=== PATIENT | male | born 1935 | race Caucasian/White ===

== ENCOUNTER 2016-02-17 12:44 | Inpatient (IN) | payer OTHER, MEDICARE ==
[2016-02-17] MEDS ORDERED: ASPIRIN 81 MG TABLET, CHEWABLE PO ONE (13:18)
[2016-02-17] MEDS ORDERED: ADENOSINE INJ/PF 6 MG/2 ML SDV IV ONE (13:19)
[2016-02-17] MEDS ORDERED: NORMAL SALINE 1000 ML 1,000 ML IV ONE (13:28)
[2016-02-17 14:20] LABS: HEMATOCRIT 36.5 % (37.9-51.0); HEMOGLOBIN 12.4 g/dL (13.5-17.0); HGB HCT DIFFERENCE 0.7; MEAN CORPUSCULAR HEMOGLOBIN 32.1 pg (27.0-33.4); MEAN CORPUSCULAR HGB CONC 33.9 g/dL (32.0-36.0); MEAN CORPUSCULAR VOLUME 95 fl (80-97); RED BLOOD COUNT 3.86 10^6/uL (4.35-5.55); RED CELL DISTRIBUTION WIDTH 14.6 % (11.5-14.0); WHITE BLOOD COUNT 26.1 10^3/uL (4.0-10.5)
[2016-02-17 14:38] LABS: ALANINE AMINOTRANSFERASE 30 U/L (21-72); ALBUMIN 3.6 g/dL (3.5-5.0); ALKALINE PHOSPHATASE 74 U/L (38-126); ANION GAP 13 (5-19); ASPARTATE AMINO TRANSFERASE 17 U/L (17-59); BILIRUBIN,TOTAL 0.6 mg/dL (0.2-1.3); BLOOD UREA NITROGEN 20 mg/dL (7-20); CALCIUM 8.8 mg/dL (8.4-10.2); CARBON DIOXIDE 28 mmol/L (22-30); CHLORIDE 101 mmol/L (98-107); CREATININE RESULT 0.83 mg/dL (0.52-1.25); GLUCOSE 116 mg/dL (75-110); POTASSIUM 4.3 mmol/L (3.6-5.0); SODIUM 141.7 mmol/L (137-145); TOTAL PROTEIN 6.5 g/dL (6.3-8.2)
[2016-02-17 14:39] LABS: BAND NEUTROPHILS % (MANUAL) 4 % (3-5); BASOPHILS % (MANUAL) 0 % (0-2); EOSINOPHILS % (MANUAL) 0 % (0-6); LYMPHOCYTES % (MANUAL) 3 % (13-45); TOTAL CELLS COUNTED 100
[2016-02-17 14:40] LABS: ANISOCYTOSIS SLIGHT
[2016-02-17 14:41] LABS: CREATINE KINASE < 20 U/L (55-170)
[2016-02-17 15:03] LABS: APPEARANCE,URINE CLEAR; BILIRUBIN,URINE NEGATIVE (NEGATIVE); GLUCOSE, URINE NEGATIVE (NEGATIVE); KETONES,URINE NEGATIVE (NEGATIVE); LEUKOCYTE ESTERASE,URINE NEGATIVE (NEGATIVE); NITRITE,URINE NEGATIVE (NEGATIVE); PROTEIN,URINE NEGATIVE (NEGATIVE); UROBILINOGEN,URINE NEGATIVE mg/dL (<2.0)
--- NOTE | 2016-02-17 17:40 | EKG REPORT ---
SEVERITY:- ABNORMAL ECG - JUNCTIONAL TACHYCARDIA INCOMPLETE RBBB AND LAFB : Confirmed by: Lindsay Avila 17-Feb-2016 17:40:32
--- NOTE | 2016-02-17 18:04 | ER Document Report ---
ED Dizziness/Weakness - General Chief Complaint: General Weakness Stated Complaint: POSSIBLE FEVER Notes: Patient is an 80-year-old male who presents with generalized weakness for the past several days. He is also having mild diffuse abdominal pain with mild SOB and a dry cough. On arrival to the emergency room, he started to have palpitations and he was found to be in SVT. He denies chest pain, source of breath, nausea, vomiting, diarrhea, constipation, fevers, headache, numbness, tingling, focal weakness or cough. TRAVEL OUTSIDE OF THE [place] IN LAST 30 DAYS: No - Related Data Allergies/Adverse Reactions: No Known Allergies Allergy (Verified 12/12/15 11:45) Past Medical History - Social History Smoking Status: Former Smoker Frequency of alcohol use: None Drug Abuse: None Family History: CAD, Malignancy, Other - Old age Patient has suicidal ideation: No Patient has homicidal ideation: No - Past Medical History Cardiac Medical History: Reports: Hx Hypertension Pulmonary Medical History: Reports: Hx COPD, Hx Pneumonia Malignancy Medical History: Reports Hx Colorectal Cancer, Reports Hx Prostate Cancer GI Medical History: Reports: Hx Gastroesophageal Reflux Disease Musculoskeltal Medical History: Reports Hx Arthritis Psychiatric Medical History: Denies: Hx Depression Past Surgical History: Reports: Hx Abdominal Surgery, Hx Colostomy, Hx Herniorrhaphy - Immunizations Hx Diphtheria, Pertussis, Tetanus Vaccination: Yes Hx Pneumococcal Vaccination: 11/11/13 Review of Systems - Review of Systems Notes: REVIEW OF SYSTEMS: CONSTITUTIONAL: Denies fever, chills, or sweats. Denies recent illness. EENT: Denies eye, ear, throat, or mouth pain or symptoms. Denies nasal or sinus congestion. CARDIOVASCULAR: Denies chest pain, syncope. RESPIRATORY: +cough, denies cold, or chest congestion. Denies shortness of breath, difficulty breathing, or wheezing. GASTROINTESTINAL: +abdominal pain. Denies nausea, vomiting, or diarrhea. Denies constipation. GENITOURINARY: Denies difficulty urinating, painful urination, burning, frequency, or blood in urine. MUSCULOSKELETAL: Denies neck or back pain or joint pain or swelling. SKIN: Denies rash or skin lesions. HEMATOLOGIC: Denies easy bruising or bleeding. LYMPHATIC: Denies swollen, enlarged glands. NEUROLOGICAL: Denies altered mental status or loss of consciousness. Denies headache. Denies weakness or paralysis or loss of use of either side. Denies problems with gait or speech. Denies sensory or motor loss. PSYCHIATRIC: Denies anxiety or stress or depression. ALL OTHER SYSTEMS REVIEWED AND NEGATIVE. Physical Exam - Vital signs Vitals: Temp Pulse Resp BP Pulse Ox 98.7 F 144 H 22 H 127/77 H 94 02/17/16 12:50 02/17/16 12:50 02/17/16 12:50 02/17/16 12:50 02/17/16 12:50 - Notes Notes: PHYSICAL EXAMINATION: GENERAL: Well-appearing, well-nourished and in no acute distress. HEAD: Atraumatic, normocephalic. EYES: Pupils equal round and reactive to light, extraocular movements intact, sclera anicteric, conjunctiva are normal. ENT: nares patent, oropharynx clear without exudates. Moist mucous membranes. NECK: Normal range of motion, supple without lymphadenopathy LUNGS: Mild crackles on B/L lower lung monique. No wheezes rales or rhonchi. HEART: Regular rhythm. Tachycardia. ABDOMEN: Soft, nontender, normoactive bowel sounds. No guarding, no rebound. No masses appreciated. EXTREMITIES: Normal range of motion, no pitting or edema. No cyanosis. NEUROLOGICAL: Cranial nerves grossly intact. Normal speech, normal gait. Normal sensory, motor, and reflex exams. PSYCH: Normal mood, normal affect. SKIN: Warm, Dry, normal turgor, no rashes or lesions noted. Course - Re-evaluation Re-evalutation: Patient's SVT broke with 6 mg of adenosine. He remained in sinus rhythm while in the emergency room. Patient with bilateral pneumonia on CT A/P, but no intra -abdominal pathology. CT head does not show any evidence of bleeds. Offered patient inpatient versus outpatient treatment of his pneumonia. Family does not feel comfortable taking patient home at this time because he had multiple pneumonias that have resulted in lengthy hospitalizations. Will begin CAP Abx and admit as an inpatient for sepsis (leukocytosis, HR) and pneumonia. Repeat HR is 92, sinus, BP 142/91, RR 21, Pulse Ox 94% on RA. Spoke to Dr. Dixon and he has accepted patient as inpatient to telemetry at 2030. - Vital Signs Vital signs: Temp Pulse Resp BP Pulse Ox 98.7 F 144 H 20 137/57 H 92 02/17/16 12:50 02/17/16 12:50 02/17/16 19:01 02/17/16 19:01 02/17/16 19:01 - Laboratory Result Diagrams: 02/17/16 13:50 02/17/16 13:50 Laboratory results interpreted by me: 02/17/16 02/17/16 02/17/16 13:50 13:50 13:50 WBC 26.1 H RBC 3.86 L Hgb 12.4 L Hct 36.5 L RDW 14.6 H Seg Neuts % (Manual) 87 H Lymphocytes % (Manual) 3 L Monocytes % (Manual) 1 L Abs Neuts (Manual) 23.8 H Glucose 116 H Creatine Kinase < 20 L Urine Blood SMALL H - Diagnostic Test Radiology reviewed: Image reviewed, Reports reviewed Radiology results interpreted by me: Head CT NAD per radiology phone call. CT abdomen and pelvis does not show any intra-abdominal pathology but does show bilateral pulmonary infiltrates. - EKG Interpretation by Me Rate: Tachycardia - SVT Rhythm: SVT Discharge - Discharge Clinical Impression: SVT (supraventricular tachycardia) Pneumonia Qualifiers: Pneumonia type: due to unspecified organism Laterality: bilateral Lung location : lower lobe of lung Qualified Code(s): J18.9 - Pneumonia, unspecified organism Sepsis Qualifiers: Sepsis type: sepsis due to unspecified organism Qualified Code(s): A41.9 - Sepsis, unspecified organism Condition: Stable Disposition: ADMITTED INPATIENT [facility] Admitted: Telemetry Referrals: JENS TAPIA MD [Primary Care Provider] - Follow up as needed
[2016-02-17] MEDS ORDERED: CEFTRIAXONE INJ 1000 MG VIAL IV ONE (18:55)
[2016-02-17] MEDS ORDERED: AZITHROMYCIN INJ 500 MG VIAL IV ONE (18:55)
[2016-02-17] MEDS ORDERED: (PENDING PHARMACY ID) (Nifedipine [Nifedipine Er] 30 MG) PO SCH (20:30)
[2016-02-17] MEDS ORDERED: ACETAMINOPHEN 325 MG TABLET PO PRN (20:31)
[2016-02-17] MEDS ORDERED: LACTULOSE SYRUP 20 GM/30 ML UDCUP PO ONE (21:00)
[2016-02-17] MEDS ORDERED: NIFEDIPINE 30 MG TAB.ER.24 PO ONE (21:00)
[2016-02-17] MEDS ORDERED: KETOROLAC TROMETHAMINE INJ/PF 30 MG/1 ML SDV IV ONE (21:07)
[2016-02-17] MEDS: GUAIFENESIN 600 MG TABLET.SA PO SCH (21:23)
[2016-02-17] MEDS: HEPARIN SOD (PORCINE) 5,000 UNIT/ML 1 ML SYRINGE SUBCUT SCH (21:24)
[2016-02-18] MEDS: IPRATROPIUM/ALBUTEROL 0.5-2.5 MG/3 ML AMPUL NEB SCH ×4 (02:14→20:12)
[2016-02-18 06:36] LABS: ABSOLUTE LYMPHOCYTES (AUTO) 2.2 10^3/uL (0.5-4.7); ABSOLUTE MONOCYTES (AUTO) 0.8 10^3/uL (0.1-1.4); ABSOLUTE NEUT (AUTO) 11.9 10^3/uL (1.7-8.2); BASOPHILS % (AUTO) 0.2 % (0-2); EOSINOPHILS % (AUTO) 0.2 % (0-6); HEMATOCRIT 33.5 % (37.9-51.0); HEMOGLOBIN 11.3 g/dL (13.5-17.0); HGB HCT DIFFERENCE 0.4; LYMPHOCYTES % (AUTO) 14.7 % (13-45); MEAN CORPUSCULAR HEMOGLOBIN 31.5 pg (27.0-33.4); MEAN CORPUSCULAR HGB CONC 33.8 g/dL (32.0-36.0); MEAN CORPUSCULAR VOLUME 93 fl (80-97); MONOCYTES % (AUTO) 5.1 % (3-13); RED BLOOD COUNT 3.59 10^6/uL (4.35-5.55); RED CELL DISTRIBUTION WIDTH 14.6 % (11.5-14.0); SEGMENTED NEUTROPHILS % (AUTO) 79.8 % (42-78); WHITE BLOOD COUNT 14.9 10^3/uL (4.0-10.5)
[2016-02-18 06:52] LABS: ANION GAP 10 (5-19); BLOOD UREA NITROGEN 15 mg/dL (7-20); CARBON DIOXIDE 28 mmol/L (22-30); CHLORIDE 102 mmol/L (98-107); CREATININE RESULT 0.66 mg/dL (0.52-1.25); GLUCOSE 92 mg/dL (75-110); POTASSIUM 3.6 mmol/L (3.6-5.0); SODIUM 140.3 mmol/L (137-145)
[2016-02-18] MEDS: HEPARIN SOD (PORCINE) 5,000 UNIT/ML 1 ML SYRINGE SUBCUT SCH ×3 (06:59→22:09)
[2016-02-18] MEDS: LEVOFLOXACIN 750 MG/D5W RTU 150 ML IV SCH (09:47)
[2016-02-18] MEDS: GUAIFENESIN 600 MG TABLET.SA PO SCH ×2 (09:48→22:09)
[2016-02-18] MEDS: DILTIAZEM HCL 120 MG CAP.SR.24H PO SCH ×2 (09:48→22:09)
[2016-02-18] MEDS ORDERED: NIFEDIPINE 30 MG TAB.ER.24 PO SCH (10:00)
[2016-02-18] MEDS: DOCUSATE SODIUM 100 MG CAPSULE PO SCH ×2 (10:00→17:06)
--- NOTE | 2016-02-18 13:31 | PDOC PROGRESS REPORT ---
Subjective Progress Note for:: 02/18/16 Subjective:: Patient seen on morning rounds. He is resting in bed doing a nebulizer treatment. His daughter is at his bedside. He states he is feeling better. He had bowel movement after enema. His cough is now beginning to loosen. He denies any dyspnea or shortness of breath. He denies any chest pain or palpitations. He denies nausea, vomiting or abdominal pain. He states he is hungry. Physical Exam Vital Signs: Temp Pulse Resp BP Pulse Ox 97.4 F 91 18 125/48 L 96 02/18/16 11:09 02/18/16 11:09 02/18/16 11:09 02/18/16 11:09 02/18/16 11:09 Intake & Output 02/17/16 02/18/16 02/19/16 06:59 06:59 06:59 Intake Total 200 Output Total 400 Balance -200 Weight 61.5 kg General appearance: PRESENT: no acute distress, thin, well-developed, well- nourished Head exam: PRESENT: atraumatic, normocephalic Eye exam: PRESENT: conjunctiva pink, EOMI, PERRLA. ABSENT: scleral icterus Ear exam: PRESENT: normal external ear exam Mouth exam: PRESENT: moist, tongue midline Neck exam: ABSENT: carotid bruit, JVD, lymphadenopathy, thyromegaly Respiratory exam: PRESENT: rhonchi, symmetrical, unlabored - bilaterally. ABSENT: rales, wheezes Cardiovascular exam: PRESENT: RRR. ABSENT: diastolic murmur, rubs, systolic murmur Pulses: PRESENT: normal dorsalis pedis pul Vascular exam: PRESENT: normal capillary refill GI/Abdominal exam: PRESENT: normal bowel sounds, soft. ABSENT: distended, guarding, mass, organolmegaly, rebound, tenderness Rectal exam: PRESENT: deferred Extremities exam: PRESENT: full ROM. ABSENT: calf tenderness, clubbing, pedal edema Neurological exam: PRESENT: alert, awake, oriented to person, oriented to place , oriented to time, oriented to situation, CN II-XII grossly intact. ABSENT: motor sensory deficit Psychiatric exam: PRESENT: appropriate affect, normal mood. ABSENT: homicidal ideation, suicidal ideation Skin exam: PRESENT: dry, intact, warm. ABSENT: cyanosis, rash Results Laboratory Results: 02/18/16 05:32 02/18/16 05:32 02/18/16 02/18/16 05:32 05:32 WBC 14.9 H RBC 3.59 L Hgb 11.3 L Hct 33.5 L MCV 93 MCH 31.5 MCHC 33.8 RDW 14.6 H Plt Count 222 Seg Neutrophils % 79.8 H Lymphocytes % 14.7 Monocytes % 5.1 Eosinophils % 0.2 Basophils % 0.2 Absolute Neutrophils 11.9 H Absolute Lymphocytes 2.2 Absolute Monocytes 0.8 Absolute Eosinophils 0.0 Absolute Basophils 0.0 Sodium 140.3 Potassium 3.6 Chloride 102 Carbon Dioxide 28 Anion Gap 10 BUN 15 Creatinine 0.66 Est GFR ( Amer) > 60 Est GFR (Non-Af Amer) > 60 Glucose 92 Calcium 9.0 Impressions: Abdomen/Pelvis CT 02/17/16 00:00 IMPRESSION: Patchy consolidation is present both lower lobes. NO ACUTE FINDING IN THE ABDOMEN OR PELVIS ON CT SCAN WITH IV CONTRAST. Chest X-Ray 02/17/16 15:22 IMPRESSION: REACTIVE AIRWAY DISEASE VERSUS VIRAL SYNDROME. Peribronchial cuffing and interstitial changes. Subsegmental atelectasis in the right lung base. No dense consolidation. Head CT 02/17/16 18:55 IMPRESSION: CHRONIC CHANGES OF ATROPHY AND MICROVASCULAR ISCHEMIA. NO ACUTE PROCESS. Assessment & Plan - Diagnosis (1) Pneumonia Qualifiers: Pneumonia type: due to unspecified organism Laterality: bilateral Lung location: lower lobe of lung Qualified Code(s): J18.9 - Pneumonia, unspecified organism Is this a current diagnosis for this admission?: YesPlan: Continue broad spectrum antibiotic therapy (2) COPD with acute exacerbation Is this a current diagnosis for this admission?: YesPlan: Continue nebulizer will add steroids (3) Atrial fibrillation with RVR Is this a current diagnosis for this admission?: YesPlan: Continue cardiazem (4) SVT (supraventricular tachycardia) Is this a current diagnosis for this admission?: YesPlan: Continue cardiazem, electrolyte replacement (5) Sepsis Qualifiers: Sepsis type: sepsis due to unspecified organism Qualified Code(s): A41.9 - Sepsis, unspecified organism Is this a current diagnosis for this admission?: YesPlan: Resolved with hydration and broad spectrum antibiotics - Time Time Spent with patient: 25-34 minutes Critical Time spent with patient: 15-24 minutes Medications reviewed and adjusted accordingly: Yes
[2016-02-19] MEDS: IPRATROPIUM/ALBUTEROL 0.5-2.5 MG/3 ML AMPUL NEB SCH ×4 (01:57→20:50)
[2016-02-19] MEDS: HEPARIN SOD (PORCINE) 5,000 UNIT/ML 1 ML SYRINGE SUBCUT SCH ×3 (06:16→21:33)
[2016-02-19 06:38] LABS: ABSOLUTE LYMPHOCYTES (AUTO) 1.5 10^3/uL (0.5-4.7); ABSOLUTE MONOCYTES (AUTO) 0.8 10^3/uL (0.1-1.4); ABSOLUTE NEUT (AUTO) 10.4 10^3/uL (1.7-8.2); BASOPHILS % (AUTO) 0.3 % (0-2); EOSINOPHILS % (AUTO) 0.2 % (0-6); HEMATOCRIT 31.6 % (37.9-51.0); HEMOGLOBIN 10.5 g/dL (13.5-17.0); HGB HCT DIFFERENCE -0.1; MEAN CORPUSCULAR HEMOGLOBIN 31.4 pg (27.0-33.4); MEAN CORPUSCULAR HGB CONC 33.3 g/dL (32.0-36.0); MEAN CORPUSCULAR VOLUME 94 fl (80-97); MONOCYTES % (AUTO) 6.1 % (3-13); RED BLOOD COUNT 3.35 10^6/uL (4.35-5.55); RED CELL DISTRIBUTION WIDTH 14.6 % (11.5-14.0); SEGMENTED NEUTROPHILS % (AUTO) 81.4 % (42-78); WHITE BLOOD COUNT 12.8 10^3/uL (4.0-10.5)
[2016-02-19 06:54] LABS: ANION GAP 13 (5-19); BLOOD UREA NITROGEN 13 mg/dL (7-20); CALCIUM 9.1 mg/dL (8.4-10.2); CARBON DIOXIDE 26 mmol/L (22-30); CHLORIDE 103 mmol/L (98-107); CREATININE RESULT 0.73 mg/dL (0.52-1.25); GLUCOSE 105 mg/dL (75-110); POTASSIUM 3.7 mmol/L (3.6-5.0); SODIUM 141.7 mmol/L (137-145)
--- NOTE | 2016-02-19 09:05 | PDOC PROGRESS REPORT ---
Subjective Progress Note for:: 02/19/16 Subjective:: Patient seen on morning rounds. He is resting in bed eating breakfast. His daughter is at his bedside. He states he is feeling better. He had bowel movement after enema. His cough is now beginning to loosen. He denies any dyspnea or shortness of breath. He denies any chest pain or palpitations. He denies nausea, vomiting or abdominal pain. Staff did notice periods of confusion overnight. His daughter states she has noticed this at home recently and is concerned as he cares for his . Physical Exam Vital Signs: Temp Pulse Resp BP Pulse Ox 97.7 F 75 16 133/48 H 93 02/19/16 03:35 02/19/16 07:55 02/19/16 07:55 02/19/16 03:35 02/19/16 07:55 Intake & Output 02/18/16 02/19/16 02/20/16 06:59 06:59 06:59 Intake Total 200 1500 Output Total 400 200 Balance -200 1300 Weight 61.5 kg 64 kg General appearance: PRESENT: no acute distress, well-developed, well-nourished Head exam: PRESENT: atraumatic, normocephalic Eye exam: PRESENT: conjunctiva pink, EOMI, PERRLA. ABSENT: scleral icterus Ear exam: PRESENT: normal external ear exam Mouth exam: PRESENT: moist, tongue midline Neck exam: ABSENT: carotid bruit, JVD, lymphadenopathy, thyromegaly Respiratory exam: PRESENT: crackles - bibasilar, symmetrical, unlabored. ABSENT : rales, rhonchi, wheezes Cardiovascular exam: PRESENT: RRR. ABSENT: diastolic murmur, rubs, systolic murmur Pulses: PRESENT: normal dorsalis pedis pul Vascular exam: PRESENT: normal capillary refill GI/Abdominal exam: PRESENT: normal bowel sounds, soft. ABSENT: distended, guarding, mass, organolmegaly, rebound, tenderness Rectal exam: PRESENT: deferred Extremities exam: PRESENT: full ROM. ABSENT: calf tenderness, clubbing, pedal edema Neurological exam: PRESENT: alert, awake, oriented to person, oriented to place , oriented to time, CN II-XII grossly intact. ABSENT: motor sensory deficit Psychiatric exam: PRESENT: appropriate affect, normal mood. ABSENT: homicidal ideation, suicidal ideation Skin exam: PRESENT: dry, intact, warm. ABSENT: cyanosis, rash Results Laboratory Results: 02/19/16 05:53 02/19/16 05:53 02/19/16 02/19/16 05:53 05:53 WBC 12.8 H RBC 3.35 L Hgb 10.5 L Hct 31.6 L MCV 94 MCH 31.4 MCHC 33.3 RDW 14.6 H Plt Count 241 Seg Neutrophils % 81.4 H Lymphocytes % 12.0 L Monocytes % 6.1 Eosinophils % 0.2 Basophils % 0.3 Absolute Neutrophils 10.4 H Absolute Lymphocytes 1.5 Absolute Monocytes 0.8 Absolute Eosinophils 0.0 Absolute Basophils 0.0 Sodium 141.7 Potassium 3.7 Chloride 103 Carbon Dioxide 26 Anion Gap 13 BUN 13 Creatinine 0.73 Est GFR ( Amer) > 60 Est GFR (Non-Af Amer) > 60 Glucose 105 Calcium 9.1 Impressions: Abdomen/Pelvis CT 02/17/16 00:00 IMPRESSION: Patchy consolidation is present both lower lobes. NO ACUTE FINDING IN THE ABDOMEN OR PELVIS ON CT SCAN WITH IV CONTRAST. Chest X-Ray 02/17/16 15:22 IMPRESSION: REACTIVE AIRWAY DISEASE VERSUS VIRAL SYNDROME. Peribronchial cuffing and interstitial changes. Subsegmental atelectasis in the right lung base. No dense consolidation. Head CT 02/17/16 18:55 IMPRESSION: CHRONIC CHANGES OF ATROPHY AND MICROVASCULAR ISCHEMIA. NO ACUTE PROCESS. Assessment & Plan - Diagnosis (1) Pneumonia Qualifiers: Pneumonia type: due to unspecified organism Laterality: bilateral Lung location: lower lobe of lung Qualified Code(s): J18.9 - Pneumonia, unspecified organism Is this a current diagnosis for this admission?: YesPlan: Continue broad spectrum antibiotic therapy (2) COPD with acute exacerbation Is this a current diagnosis for this admission?: YesPlan: Continue nebulizer will add steroids (3) Atrial fibrillation with RVR Is this a current diagnosis for this admission?: YesPlan: Continue cardiazem (4) SVT (supraventricular tachycardia) Is this a current diagnosis for this admission?: YesPlan: Continue cardiazem, electrolyte replacement (5) Sepsis Qualifiers: Sepsis type: sepsis due to unspecified organism Qualified Code(s): A41.9 - Sepsis, unspecified organism Is this a current diagnosis for this admission?: YesPlan: Resolved with hydration and broad spectrum antibiotics (6) Confusion Is this a current diagnosis for this admission?: YesPlan: Patient has periods of confusion especially at night. Daughter states this has been a new problem at home (7) Constipation Qualifiers: Constipation type: chronic idiopathic constipation Qualified Code(s) : K59.04 - Chronic idiopathic constipation Is this a current diagnosis for this admission?: YesPlan: Miralax and colace - Time Time Spent with patient: 25-34 minutes Critical Time spent with patient: 15-24 minutes Medications reviewed and adjusted accordingly: Yes Anticipated discharge: Home with Homehealth
[2016-02-19] MEDS: DOCUSATE SODIUM 100 MG CAPSULE PO SCH ×2 (09:14→17:11)
[2016-02-19] MEDS: DILTIAZEM HCL 120 MG CAP.SR.24H PO SCH ×2 (09:14→21:33)
[2016-02-19] MEDS: GUAIFENESIN 600 MG TABLET.SA PO SCH ×2 (09:15→21:34)
[2016-02-19] MEDS: LEVOFLOXACIN 750 MG/D5W RTU 150 ML IV SCH (09:15)
[2016-02-19] MEDS: ACETAMINOPHEN WITH CODEINE #3 TABLET PO PRN ×2 (10:26→16:32)
[2016-02-19] MEDS: POLYETHYLENE GLYCOL 3350 POWDER 17 GM/1 PACKET PO SCH (10:29)
[2016-02-20] MEDS: IPRATROPIUM/ALBUTEROL 0.5-2.5 MG/3 ML AMPUL NEB SCH ×3 (02:51→13:54)
[2016-02-20] MEDS: HEPARIN SOD (PORCINE) 5,000 UNIT/ML 1 ML SYRINGE SUBCUT SCH (06:00)
[2016-02-20 07:06] LABS: ABSOLUTE BASOPHILS # (AUTO) 0.1 10^3/uL (0.0-0.2); ABSOLUTE EOSINOPHILS # (AUTO) 0.1 10^3/uL (0.0-0.6); ABSOLUTE LYMPHOCYTES (AUTO) 1.8 10^3/uL (0.5-4.7); ABSOLUTE MONOCYTES (AUTO) 0.8 10^3/uL (0.1-1.4); ABSOLUTE NEUT (AUTO) 12.1 10^3/uL (1.7-8.2); BASOPHILS % (AUTO) 0.3 % (0-2); EOSINOPHILS % (AUTO) 0.5 % (0-6); HEMATOCRIT 32.9 % (37.9-51.0); HEMOGLOBIN 11.1 g/dL (13.5-17.0); HGB HCT DIFFERENCE 0.4; MEAN CORPUSCULAR HEMOGLOBIN 31.7 pg (27.0-33.4); MEAN CORPUSCULAR HGB CONC 33.8 g/dL (32.0-36.0); MEAN CORPUSCULAR VOLUME 94 fl (80-97); MONOCYTES % (AUTO) 5.3 % (3-13); RED CELL DISTRIBUTION WIDTH 14.7 % (11.5-14.0); SEGMENTED NEUTROPHILS % (AUTO) 81.9 % (42-78); WHITE BLOOD COUNT 14.8 10^3/uL (4.0-10.5)
[2016-02-20 07:30] LABS: ANION GAP 11 (5-19); BLOOD UREA NITROGEN 11 mg/dL (7-20); CALCIUM 8.9 mg/dL (8.4-10.2); CARBON DIOXIDE 27 mmol/L (22-30); CHLORIDE 103 mmol/L (98-107); CREATININE RESULT 0.78 mg/dL (0.52-1.25); GLUCOSE 102 mg/dL (75-110); POTASSIUM 4.1 mmol/L (3.6-5.0); SODIUM 141.1 mmol/L (137-145)
[2016-02-20 09:06] VITALS: BP 136/63
[2016-02-20] MEDS: POLYETHYLENE GLYCOL 3350 POWDER 17 GM/1 PACKET PO SCH (09:08)
[2016-02-20] MEDS: DOCUSATE SODIUM 100 MG CAPSULE PO SCH (09:08)
[2016-02-20] MEDS: LEVOFLOXACIN 750 MG/D5W RTU 150 ML IV SCH (09:08)
[2016-02-20] MEDS: DILTIAZEM HCL 120 MG CAP.SR.24H PO SCH (09:09)
[2016-02-20] MEDS: GUAIFENESIN 600 MG TABLET.SA PO SCH (09:09)
[2016-02-20] MEDS: ACETAMINOPHEN WITH CODEINE #3 TABLET PO PRN (11:46)
--- NOTE | 2016-02-20 15:00 | PDOC DISCHARGE SUMMARY ---
General - Admit/Disc Date/PCP Admission Date/Primary Care Provider: 02/17/16 20:32 JENS TAPIA Discharge Date: 02/20/16 - Discharge Diagnosis (1) Pneumonia Is this a current diagnosis for this admission?: YesSummary: Continue Levaquin for 5 more days (2) COPD with acute exacerbation Is this a current diagnosis for this admission?: YesSummary: Continue inhalers. He does not require oxygen (3) Atrial fibrillation with RVR Is this a current diagnosis for this admission?: YesSummary: Resolved. 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 Back to baseline (7) Constipation Is this a current diagnosis for this admission?: YesSummary: Prn cathartics - Additional Information Resuscitation Status: Full Code Discharge Diet: Cardiac Discharge Activity: Activity As Tolerated, Balance Activity w/Rest Home Medications: Acetaminophen with Codeine [Tylenol with Codeine #3 Tablet] 1 tab PO Q8H PRN 09/24 Docusate Sodium [Colace 100 mg Capsule] 100 mg PO BID #60 capsule 11/28/15 Acetaminophen with Codeine [Tylenol #3 Tablet] 1 tab PO Q6HP PRN 02/18/16 Albuterol Sulfate [Ventolin Hfa] 2 puff PO Q4 PRN 02/18/16 Dextran 70/Hypromellose [Artificial Tears] 1 each OP 02/18/16 Omeprazole 20 mg PO DAILY 02/18/16 Acetaminophen [Tylenol 325 mg Tablet] 650 mg PO Q4HP PRN tablet 02/20/16 Diltiazem HCl [Cardizem Cd 120 mg Capsule] 120 mg PO Q12 #60 cap.sr.24h Guaifenesin [Mucinex Sr 600 mg Tablet.sa] 600 mg PO Q12 tablet.sa 02/20/16 Levofloxacin [Levaquin 500 mg Tablet] 500 mg PO DAILY #5 tablet 02/20/16 Polyethylene Glycol 3350 [Miralax Powder 17 gm/Packet] 17 gm PO DAILY powd.pack 02/20/16 History of Present Illness History of Present Illness: SHANEKA SIERRA is a 80 year old male who presented to the ED with fever, cough , shortness or breath and altered mental status. He was found to have a mild leucocytosis and bibasilar pneumonia on CT scan. He was also complaining of abdominal pain and was found to be constipated. He had period of SVT and afib with RVR that responded to Diltiazem. He was started on broad spectrum antibiotics and referred to the hospitalist service for admission. Hospital Course Hospital Course: Patient was admitted to the telemetry unit by the hospitalist service. He was given an enema to resolve his constipation. IV levaquin and nebulizer treatments were started. He had no further SVT after initiation of cardiazem. He was able to be weaned off oxygen the following day. PT was consulted for evaluation. Patient had periods of confusion especially at night. CT showed atrophy and microvascular changes consistent with aging. Discussed options of home health versus rehab. Family felt that he would do better presently with home health. Physical Exam Vital Signs: Temp Pulse Resp BP Pulse Ox 97.5 F 84 18 136/63 H 91 L 02/20/16 13:36 02/20/16 13:54 02/20/16 13:54 02/20/16 13:36 02/20/16 13:54 Intake & Output 02/19/16 02/20/16 02/21/16 06:59 06:59 06:59 Intake Total 1500 905 Output Total 200 Balance 1300 905 Weight 64 kg 64.6 kg General appearance: PRESENT: no acute distress, thin, well-developed, well- nourished Head exam: PRESENT: atraumatic, normocephalic Eye exam: PRESENT: conjunctiva pink, EOMI, PERRLA. ABSENT: scleral icterus Ear exam: PRESENT: normal external ear exam Mouth exam: PRESENT: moist, tongue midline Neck exam: ABSENT: carotid bruit, JVD, lymphadenopathy, thyromegaly Respiratory exam: PRESENT: clear to auscultation jacky. ABSENT: rales, rhonchi, wheezes Cardiovascular exam: PRESENT: RRR. ABSENT: diastolic murmur, rubs, systolic murmur Pulses: PRESENT: normal carotid pulses Vascular exam: PRESENT: normal capillary refill GI/Abdominal exam: PRESENT: normal bowel sounds, soft. ABSENT: distended, guarding, mass, organolmegaly, rebound, tenderness Rectal exam: PRESENT: deferred Extremities exam: PRESENT: full ROM. ABSENT: calf tenderness, clubbing, pedal edema Musculoskeletal exam: PRESENT: ambulatory Neurological exam: PRESENT: alert, altered, oriented to person, oriented to place, CN II-XII grossly intact, normal gait Psychiatric exam: PRESENT: appropriate affect, normal mood. ABSENT: homicidal ideation, suicidal ideation Skin exam: PRESENT: dry, intact, warm. ABSENT: cyanosis, rash Results Laboratory Results: 02/20/16 06:04 02/20/16 06:04 02/20/16 02/20/16 06:04 06:04 WBC 14.8 H RBC 3.50 L Hgb 11.1 L Hct 32.9 L MCV 94 MCH 31.7 MCHC 33.8 RDW 14.7 H Plt Count 245 Seg Neutrophils % 81.9 H Lymphocytes % 12.0 L Monocytes % 5.3 Eosinophils % 0.5 Basophils % 0.3 Absolute Neutrophils 12.1 H Absolute Lymphocytes 1.8 Absolute Monocytes 0.8 Absolute Eosinophils 0.1 Absolute Basophils 0.1 Sodium 141.1 Potassium 4.1 Chloride 103 Carbon Dioxide 27 Anion Gap 11 BUN 11 Creatinine 0.78 Est GFR ( Amer) > 60 Est GFR (Non-Af Amer) > 60 Glucose 102 Calcium 8.9 Impressions: Abdomen/Pelvis CT 02/17/16 00:00 IMPRESSION: Patchy consolidation is present both lower lobes. NO ACUTE FINDING IN THE ABDOMEN OR PELVIS ON CT SCAN WITH IV CONTRAST. Chest X-Ray 02/17/16 15:22 IMPRESSION: REACTIVE AIRWAY DISEASE VERSUS VIRAL SYNDROME. Peribronchial cuffing and interstitial changes. Subsegmental atelectasis in the right lung base. No dense consolidation. Head CT 02/17/16 18:55 IMPRESSION: CHRONIC CHANGES OF ATROPHY AND MICROVASCULAR ISCHEMIA. NO ACUTE PROCESS. Qualifiers PATEINT BEING DISCHARGED WITH ANY OF THE FOLLOWING DIAGNOSIS?: No Plan Discharge Plan: Home with with home health nursing and aide Time Spent: Less than 30 Minutes
[2016-02-21] MEDS ORDERED: LEVOFLOXACIN 500 MG TABLET PO SCH (10:00)
== END 2016-02-20 14:23 | disposition home health service (06) | DRG 871 ==
LOC: ER 12:44 → EH 20:32 → 5 23:38
PROVIDERS: ADMIT Internal Medicine; ATTEND Internal Medicine
DX: A41.9 Sepsis, unspecified organism (principal); J18.9 Pneumonia, unspecified organism; I47.1 Supraventricular tachycardia; J44.1 Chronic obstructive pulmonary disease with (acute) exacerbation; I10 Essential (primary) hypertension; R53.1 Weakness; K21.9 Gastro-esophageal reflux disease without esophagitis; M19.90 Unspecified osteoarthritis, unspecified site; I48.2 Chronic atrial fibrillation; K59.04 Chronic idiopathic constipation; R41.0 Disorientation, unspecified; Z87.891 Personal history of nicotine dependence; Z85.038 Personal history of other malignant neoplasm of large intestine; Z85.46 Personal history of malignant neoplasm of prostate
CPT/HCPCS: 36415; 51701; 70450; 71020; 74177; 80048; 80053; 81001; 82550; 83605; 83690; 84484; 85025; 87040; 93005; 93010; 94640; 94799; 96361; 96374; 99285; J0153; J0456; J0696; J1644; J1885; J1956; J3490; J7030; J7620

== ENCOUNTER 2017-07-06 11:10 | Emergency (ER) | payer OTHER, MEDICARE ==
[2017-07-06] MEDS ORDERED: ASPIRIN 81 MG TABLET, CHEWABLE PO ONE (11:11)
[2017-07-06 11:34] LABS: ABSOLUTE BASOPHILS # (AUTO) 0.1 10^3/uL (0.0-0.2); ABSOLUTE EOSINOPHILS # (AUTO) 0.2 10^3/uL (0.0-0.6); ABSOLUTE LYMPHOCYTES (AUTO) 1.1 10^3/uL (0.5-4.7); ABSOLUTE MONOCYTES (AUTO) 0.9 10^3/uL (0.1-1.4); ABSOLUTE NEUT (AUTO) 10.8 10^3/uL (1.7-8.2); BASOPHILS % (AUTO) 0.5 % (0-2); EOSINOPHILS % (AUTO) 1.3 % (0-6); HEMATOCRIT 33.7 % (37.9-51.0); HEMOGLOBIN 11.4 g/dL (13.5-17.0); LYMPHOCYTES % (AUTO) 8.2 % (13-45); MEAN CORPUSCULAR HEMOGLOBIN 31.6 pg (27.0-33.4); MEAN CORPUSCULAR HGB CONC 33.8 g/dL (32.0-36.0); MEAN CORPUSCULAR VOLUME 94 fl (80-97); MONOCYTES % (AUTO) 6.8 % (3-13); PLATELET COUNT 304 10^3/uL (150-450); RED CELL DISTRIBUTION WIDTH 15.4 % (11.5-14.0); SEGMENTED NEUTROPHILS % (AUTO) 83.2 % (42-78); TOTAL CELLS COUNTED % (AUTO) 100 %
--- NOTE | 2017-07-06 11:42 | ER Document Report ---
ED Cardiac - General Chief Complaint: Chest Pain Stated Complaint: CHEST PAIN Time Seen by Provider: 07/06/17 11:20 Notes: Chief complaint: Right chest wall pain History of complain:( obtained from-patient) 81 years old male presents today with right chest wall pain for the last 3 days he states that he pulled it while trying to get up. And also when he takes a deep breath or cough the pain comes on to. Denies any precordial pain left arm numbness tingling sensation nausea vomiting. Denies any difficulty in breathing. Denies any other constitutional symptoms. Onset: 3 days ago gradual Severity: Mild to moderate Quality: Sharp Context: While trying to move Exacerbating factor and relieving factors: Change of position or taking a deep breath REVIEW OF SYSTEMS: CONSTITUTIONAL : Denies fever, chills, or sweats. Denies recent illness. EENT: Denies eye, ear, throat, or mouth pain or symptoms. Denies nasal or sinus congestion or discharge. Denies throat, tongue, or mouth swelling or difficulty swallowing. CARDIOVASCULAR: Denies chest pain. Denies palpitations or racing or irregular heart beat. Denies ankle edema. RESPIRATORY: Denies cough, cold, or chest congestion. Denies shortness of breath, difficulty breathing, or wheezing. GASTROINTESTINAL: Denies distention. Denies nausea, vomiting, or diarrhea. Denies blood in vomitus, stools, or per rectum. Denies black, tarry stools. Denies constipation. GENITOURINARY: Denies difficulty urinating, painful urination, burning, frequency, blood in urine, or discharge. FEMALE GENITOURINARY: Denies vaginal bleeding, heavy or abnormal periods, irregular periods. Denies vaginal discharge or odor. MUSCULOSKELETAL: Chest wall pain denies back or neck pain or stiffness. Denies joint pain or swelling. SKIN: Denies rash, lesions or sores. HEMATOLOGIC : Denies easy bruising or bleeding. LYMPHATIC: Denies swollen, enlarged glands. NEUROLOGICAL: Denies confusion or altered mental status. Denies passing out or loss of consciousness. Denies dizziness or lightheadedness. Denies headache. Denies weakness or paralysis or loss of use of either side. Denies problems with gait or speech. Denies sensory loss, numbness, or tingling. Denies seizures. PSYCHIATRIC: Denies anxiety or stress. Denies depression, suicidal ideation, or homicidal ideation. ALL OTHER SYSTEMS REVIEWED AND NEGATIVE. PHYSICAL EXAMINATION: GENERAL: Well-appearing, well-nourished and in no acute distress. HEAD: Atraumatic, normocephalic. EYES: Pupils equal round and reactive to light, extraocular movements intact, conjunctiva are normal. ENT: Nares patent, oropharynx clear without exudates. Moist mucous membranes. NECK: Normal range of motion, supple without lymphadenopathy LUNGS: Breath sounds clear to auscultation bilaterally and equal. No wheezes rales or rhonchi. HEART: Regular rate and rhythm without murmurs Chest wall-right anterior chest wall is tender on palpation. ABDOMEN: Soft, nontender, nondistended abdomen. No guarding, no rebound. No masses appreciated. Examination of genitals-deferred Musculoskeletal: Normal range of motion, no pitting or edema. No cyanosis. NEUROLOGICAL: Cranial nerves grossly intact. Normal speech, normal gait. Normal sensory, motor exams PSYCH: Normal mood, normal affect. SKIN: Warm, Dry, normal turgor, no rashes or lesions noted. Dictation was performed using [employer] voice recognition software right chest wall pain TRAVEL OUTSIDE OF THE [place] IN LAST 30 DAYS: No - Related Data Allergies/Adverse Reactions: No Known Allergies Allergy (Verified 12/12/15 11:45) Past Medical History - Social History Smoking Status: Former Smoker Chew tobacco use (# tins/day): No Frequency of alcohol use: None Drug Abuse: None Family History: CAD, Malignancy, Other - Old age Patient has suicidal ideation: No Patient has homicidal ideation: No - Past Medical History Cardiac Medical History: Reports: Hx Atrial Fibrillation, Hx Hypertension Pulmonary Medical History: Reports: Hx COPD, Hx Pneumonia Renal/ Medical History: Denies: Hx Peritoneal Dialysis Malignancy Medical History: Reports Hx Colorectal Cancer, Reports Hx Prostate Cancer GI Medical History: Reports: Hx Gastroesophageal Reflux Disease Musculoskeltal Medical History: Reports Hx Arthritis Psychiatric Medical History: Denies: Hx Depression Past Surgical History: Reports: Hx Abdominal Surgery, Hx Colostomy, Hx Herniorrhaphy - Immunizations Hx Diphtheria, Pertussis, Tetanus Vaccination: Yes Hx Pneumococcal Vaccination: 11/11/13 Physical Exam - Vital signs Vitals: Temp Pulse Ox 98.2 F 94 07/06/17 11:23 07/06/17 11:23 Course - Re-evaluation Re-evalutation: 07/06/17 13:03 Patient remained stable, no further pain or discomfort. - Vital Signs Vital signs: Temp Pulse Resp BP Pulse Ox 98.2 F 94 07/06/17 11:23 07/06/17 11:23 - Laboratory Result Diagrams: 07/06/17 10:33 07/06/17 10:33 Laboratory results interpreted by me: 07/06/17 07/06/17 10:33 10:33 WBC 13.0 H RBC 3.60 L Hgb 11.4 L Hct 33.7 L RDW 15.4 H Seg Neutrophils % 83.2 H Lymphocytes % 8.2 L Absolute Neutrophils 10.8 H Carbon Dioxide 33 H BUN 25 H Glucose 123 H ALT 18 L Creatine Kinase 33 L - Diagnostic Test Radiology reviewed: Reports reviewed - Chest x-ray reported by radiologist as normal - EKG Interpretation by Me EKG shows normal: Sinus rhythm Rate: Normal Diamond/QRS: Right axis deviation - Sinus rhythm at the rate of 77 bpm normal axis atrial enlargement, RSR pattern in V1, possible right bundle branch block pattern. Compared to the earlier cardiogram which was done in February 2016 new changes noted in V3. Discharge - Discharge Clinical Impression: Acute chest wall pain Condition: Fair Disposition: HOME, SELF-CARE Instructions: Chest Wall Pain ([facility]) Prescriptions: Hydrocodone/Acetaminophen [Vicodin 5-300 mg Tablet] 1 each PO Q6HP PRN #10 tablet PRN Reason:
[2017-07-06 11:52] LABS: ALANINE AMINOTRANSFERASE 18 U/L (21-72); ALBUMIN 3.6 g/dL (3.5-5.0); ALKALINE PHOSPHATASE 92 U/L (38-126); ANION GAP 9 (5-19); ASPARTATE AMINO TRANSFERASE 24 U/L (17-59); BILIRUBIN,DIRECT 0.2 mg/dL (0.0-0.4); BILIRUBIN,TOTAL 0.2 mg/dL (0.2-1.3); BLOOD UREA NITROGEN 25 mg/dL (7-20); CALCIUM 8.7 mg/dL (8.4-10.2); CARBON DIOXIDE 33 mmol/L (22-30); CHLORIDE 100 mmol/L (98-107); CREATINE KINASE 33 U/L (55-170); GLUCOSE 123 mg/dL (75-110); POTASSIUM 3.7 mmol/L (3.6-5.0); SODIUM 142.4 mmol/L (137-145); TOTAL PROTEIN 6.9 g/dL (6.3-8.2)
--- NOTE | 2017-07-06 11:58 | RADIOLOGY REPORT (SQ) ---
EXAM DESCRIPTION: CHEST SINGLE VIEW COMPLETED DATE/TIME: 07/06/2017 11:51 am REASON FOR STUDY: cp COMPARISON: 02/17/2016. EXAM PARAMETERS: NUMBER OF VIEWS: One view. TECHNIQUE: Single frontal radiographic view of the chest acquired. RADIATION DOSE: NA LIMITATIONS: None. FINDINGS: LUNGS AND PLEURA: No opacities, masses or pneumothorax. No pleural effusion. MEDIASTINUM AND HILAR STRUCTURES: No masses. Contour normal. HEART AND VASCULAR STRUCTURES: Heart normal in size. Normal vasculature. BONES: No acute findings. HARDWARE: None in the chest. OTHER: No other significant finding. IMPRESSION: NO ACUTE RADIOGRAPHIC FINDING IN THE CHEST. TECHNICAL DOCUMENTATION: JOB ID: [id number] [email or web address] All Rights Reserved Reading location - IP/workstation name: [email or web address]
[2017-07-06 12:04] LABS: CREATINE KINASE MB 1.2 ng/mL (<4.55); TROPONIN I 0.015 ng/mL
[2017-07-06 13:18] VITALS: BP 179/75
--- NOTE | 2017-07-06 16:36 | EKG REPORT ---
SEVERITY:- ABNORMAL ECG - SINUS RHYTHM PROBABLE LEFT ATRIAL ABNORMALITY RBBB AND LAFB LEFT VENTRICULAR HYPERTROPHY : Confirmed by: Daniel Richter MD 06-Jul-2017 16:35:55
== END 2017-07-06 13:28 | disposition home or self-care (01) ==
LOC: ER 11:10
DX: R07.89 Other chest pain (principal); I10 Essential (primary) hypertension; J44.9 Chronic obstructive pulmonary disease, unspecified; Z87.01 Personal history of pneumonia (recurrent); Z85.048 Personal history of other malignant neoplasm of rectum, rectosigmoid junction, and anus; Z85.46 Personal history of malignant neoplasm of prostate; Z87.891 Personal history of nicotine dependence; Z82.49 Family history of ischemic heart disease and other diseases of the circulatory system
CPT/HCPCS: 36415; 71045; 80053; 82550; 82553; 84484; 85025; 93005; 93010; 99284

== ENCOUNTER 2018-03-12 20:03 | Inpatient (IN) | payer OTHER, MEDICARE, MEDICAID ==
[2018-03-12 20:45] LABS: HEMATOCRIT 33.3 % (37.9-51.0); MEAN CORPUSCULAR HEMOGLOBIN 30.7 pg (27.0-33.4); MEAN CORPUSCULAR VOLUME 93 fl (80-97); PLATELET COUNT 243 10^3/uL (150-450); RED BLOOD COUNT 3.58 10^6/uL (4.35-5.55); RED CELL DISTRIBUTION WIDTH 15.6 % (11.5-14.0); WHITE BLOOD COUNT 15.2 10^3/uL (4.0-10.5)
[2018-03-12 20:46] LABS: VENOUS BLOOD HCO3 38.6 mmol/L (20-32); VENOUS BLOOD PH 7.38 (7.30-7.42)
[2018-03-12] MEDS ORDERED: DILTIAZEM HCL INJ 25 MG/5 ML VIAL IV ONE (20:49)
[2018-03-12 20:50] LABS: INTERNATIONAL RATION (INR) 1.07; PROTHROMBIN TIME 14.4 SEC (11.4-15.4)
[2018-03-12 21:01] LABS: ALANINE AMINOTRANSFERASE 26 U/L (21-72); ALBUMIN 3.6 g/dL (3.5-5.0); ALKALINE PHOSPHATASE 100 U/L (38-126); ANION GAP 11 (5-19); ASPARTATE AMINO TRANSFERASE 20 U/L (17-59); BILIRUBIN,DIRECT 0.3 mg/dL (0.0-0.4); BILIRUBIN,TOTAL 0.6 mg/dL (0.2-1.3); BLOOD UREA NITROGEN 21 mg/dL (7-20); CALCIUM 8.1 mg/dL (8.4-10.2); CARBON DIOXIDE 35 mmol/L (22-30); CHLORIDE 95 mmol/L (98-107); CREATINE KINASE 22 U/L (55-170); GLUCOSE 161 mg/dL (75-110); POTASSIUM 3.3 mmol/L (3.6-5.0); SODIUM 140.5 mmol/L (137-145); TOTAL PROTEIN 6.3 g/dL (6.3-8.2)
[2018-03-12 21:05] LABS: ABSOLUTE LYMPHOCYTES# (MANUAL) 0.8 10^3/uL (0.5-4.7); ABSOLUTE MONOCYTES # (MANUAL) 0.3 10^3/uL (0.1-1.4); ABSOLUTE NEUTROPHILS# (MANUAL) 14.1 10^3/uL (1.7-8.2); BASOPHILS % (MANUAL) 0 % (0-2); EOSINOPHILS % (MANUAL) 0 % (0-6); LYMPHOCYTES % (MANUAL) 5 % (13-45); MONOCYTES % (MANUAL) 2 % (3-13); SEGMENTED NEUTROPHILS % (MAN) 93 % (42-78); TOTAL CELLS COUNTED 100
[2018-03-12 21:07] LABS: ANISOCYTOSIS SLIGHT; PLATELET COMMENT ADEQUATE; PLATELET LARGE PRESENT; POIKILOCYTOSIS SLIGHT; POLYCHROMASIA SLIGHT; TARGET CELLS SLIGHT
[2018-03-12] MEDS: DILTIAZEM HCL/D5W 125 MG/125 ML RTUINJ IV PRN (21:11)
[2018-03-12 21:12] LABS: CREATINE KINASE MB 1.03 ng/mL (<4.55); TROPONIN I 0.018 ng/mL
--- NOTE | 2018-03-12 21:22 | RADIOLOGY REPORT (SQ) ---
XR CHEST 1 VIEW HISTORY: difficulty breathing COMPARISON: 07/06/2017. FINDINGS: There are small bilateral pleural effusions with adjacent atelectasis. The heart size is normal. No pneumothorax is seen. There are no acute osseous findings. IMPRESSION: Pulmonary edema with small pleural effusions.
[2018-03-12 21:38] LABS: APPEARANCE,URINE CLEAR; BILIRUBIN,URINE NEGATIVE (NEGATIVE); COLOR,URINE YELLOW; GLUCOSE, URINE NEGATIVE (NEGATIVE); KETONES,URINE NEGATIVE (NEGATIVE); LEUKOCYTE ESTERASE,URINE NEGATIVE (NEGATIVE); NITRITE,URINE NEGATIVE (NEGATIVE); PROTEIN,URINE 30 mg/dL (NEGATIVE); URINE SPECIFIC GRAVITY 1.021
[2018-03-12] MEDS ORDERED: LEVOFLOXACIN 750 MG/D5W RTU 750 MG/150 ML RTUPB IV ONE (21:57)
[2018-03-12] MEDS ORDERED: IPRATROPIUM/ALBUTEROL 0.5-2.5 MG/3 ML AMPUL NEB PRN (22:44)
[2018-03-12] MEDS ORDERED: ACETAMINOPHEN 325 MG TABLET PO PRN (22:44)
[2018-03-12] MEDS ORDERED: GUAIFENESIN SYRP 200 MG/10 ML UDC PO PRN (22:44)
[2018-03-12] MEDS ORDERED: CHLORPHENIRAMINE MALEATE 4 MG TABLET PO ONE (23:05)
[2018-03-13] MEDS: IPRATROPIUM BROMIDE 0.02% NEB 0.5 MG/2.5 ML AMPUL NEB SCH ×4 (01:43→20:28)
[2018-03-13] MEDS: LEVALBUTEROL HCL NEB 1.25 MG/3 ML AMPUL NEB SCH ×4 (01:43→20:28)
[2018-03-13] MEDS ORDERED: LEVOFLOXACIN 750 MG/D5W RTU 0 MG/0 ML RTUPB IV ONE (01:57)
[2018-03-13] MEDS: DILTIAZEM HCL 60 MG TABLET PO SCH ×5 (04:54→23:44)
--- NOTE | 2018-03-13 05:55 | PDOC H&P ---
History of Present Illness Admission Date/PCP: 03/12/18 22:[facility] Patient complains of: Shortness of breath History of Present Illness: SHANEKA SIERRA is a 82 year old male with a past medical history of A. fib a flutter without anticoagulation secondary to bleed, COPD, chronic bronchitis, obstructive sleep apnea, cervical stenosis, psoriatic arthritis and GERD. He presents with 72 hours of shortness of breath and a nonproductive cough with fever chills and tachycardia prompting evaluation emergency room where he is found to have uncontrolled a flutter. Bilateral rhonchi and a nonproductive cough, respiratory distress with retraction and hypoxia of 80% on room air. Chest x-ray suggests infiltrate and edema, labs reveal leukocytosis and a BNP of 9000. He started on IV Cardizem, BiPAP and empiric antibiotics and referred to the hospitalist for admission. Past Medical History Cardiac Medical History: Reports: Atrial Fibrillation, Hypertension Pulmonary Medical History: Reports: Chronic Obstructive Pulmonary Disease (COPD), Pneumonia Malignancy Medical History: Reports: Colorectal Cancer GI Medical History: Reports: Gastroesophageal Reflux Disease Musculoskeltal Medical History: Reports: Arthritis Psychiatric Medical History: Denies: Depression Past Surgical History Past Surgical History: Reports: Colostomy, Herniorrhaphy Social History Information Source: Patient, H Records Lives with: Family Smoking Status: Never Smoker Frequency of Alcohol Use: None Hx Recreational Drug Use: No Drugs: None Hx Prescription Drug Abuse: No - Advance Directive Resuscitation Status: Full Code Family History Family History: CAD, Malignancy, Other - Old age Parental Family History Reviewed: Yes Children Family History Reviewed: Yes Sibling(s) Family History Reviewed.: Yes Medication/Allergy Home Medications: Acetaminophen with Codeine [Tylenol with Codeine #3 Tablet] 1 tab PO Q8H PRN 11/18/13 Docusate Sodium [Colace 100 mg Capsule] 100 mg PO BID #60 capsule 11/28/15 Acetaminophen with Codeine [Tylenol #3 Tablet] 1 tab PO Q6HP PRN 02/18/16 Albuterol Sulfate [Ventolin Hfa] 2 puff PO Q4 PRN 02/18/16 Dextran 70/Hypromellose [Artificial Tears] 1 each OP 02/18/16 Omeprazole 20 mg PO DAILY 02/18/16 Acetaminophen [Tylenol 325 mg Tablet] 650 mg PO Q4HP PRN tablet 02/20/16 Diltiazem HCl [Cardizem Cd 120 mg Capsule] 120 mg PO Q12 #60 cap.sr.24h 02/20/16 Guaifenesin [Mucinex Sr 600 mg Tablet.sa] 600 mg PO Q12 tablet.sa 02/20/16 Levofloxacin [Levaquin 500 mg Tablet] 500 mg PO DAILY #5 tablet 02/20/16 Polyethylene Glycol 3350 [Miralax Powder 17 gm/Packet] 17 gm PO DAILY powd.pack 02/20/16 Hydrocodone/Acetaminophen [Vicodin 5-300 mg Tablet] 1 each PO Q6HP PRN #10 tablet 07/06/17 Allergies/Adverse Reactions: No Known Allergies Allergy (Verified 12/12/15 11:45) Review of Systems Constitutional: PRESENT: as per HPI, fatigue, weakness Eyes: ABSENT: visual disturbances Ears: ABSENT: hearing changes Cardiovascular: PRESENT: dyspnea on exertion, edema, palpitations Respiratory: PRESENT: as per HPI, cough, dyspnea. ABSENT: sputum Gastrointestinal: PRESENT: constipation. ABSENT: abdominal pain, diarrhea, hematemesis, hematochezia, nausea, vomiting Genitourinary: ABSENT: dysuria, hematuria Musculoskeletal: ABSENT: joint swelling Integumentary: ABSENT: rash, wounds Neurological: ABSENT: abnormal gait, abnormal speech, confusion, dizziness, focal weakness, syncope Psychiatric: ABSENT: anxiety, depression, homidical ideation, suicidal ideation Endocrine: ABSENT: cold intolerance, heat intolerance, polydipsia, polyuria Hematologic/Lymphatic: ABSENT: easy bleeding, easy bruising Physical Exam Vital Signs: Temp Pulse Resp BP Pulse Ox 102.2 F H 96 22 H 152/68 H 91 L 03/12/18 20:08 03/13/18 01:47 03/13/18 04:56 03/13/18 04:51 03/13/18 04:56 Intake & Output 03/11/18 03/12/18 03/13/18 11:59 11:59 11:59 Intake Total 150 Balance 150 Weight 86 kg General appearance: PRESENT: cooperative, hard of hearing, severe distress, thin Head exam: PRESENT: atraumatic, normocephalic Eye exam: PRESENT: conjunctiva pink, EOMI, PERRLA. ABSENT: scleral icterus Ear exam: PRESENT: normal external ear exam Mouth exam: PRESENT: moist, tongue midline Neck exam: ABSENT: carotid bruit, JVD, lymphadenopathy, thyromegaly Respiratory exam: PRESENT: accessory muscle use, crackles, decreased breath sounds, rales, retraction, rhonchi, tachypnea Cardiovascular exam: PRESENT: gallop, irregular rhythm, tachycardia Pulses: PRESENT: normal dorsalis pedis pul Vascular exam: PRESENT: normal capillary refill GI/Abdominal exam: PRESENT: normal bowel sounds, soft. ABSENT: distended, guarding, mass, organolmegaly, rebound, tenderness Rectal exam: PRESENT: deferred Extremities exam: PRESENT: +1 edema. ABSENT: calf tenderness, clubbing Neurological exam: PRESENT: alert, awake, oriented to person, oriented to place, oriented to time, oriented to situation, CN II-XII grossly intact. ABSENT: motor sensory deficit Psychiatric exam: PRESENT: appropriate affect, normal mood. ABSENT: homicidal ideation, suicidal ideation Skin exam: PRESENT: dry, intact, warm. ABSENT: cyanosis, rash Results Laboratory Results: 03/12/18 20:40 03/12/18 20:40 03/12/18 03/12/18 03/12/18 20:40 20:40 20:40 WBC 15.2 H RBC 3.58 L Hgb 11.0 L Hct 33.3 L MCV 93 MCH 30.7 MCHC 33.0 RDW 15.6 H Plt Count 243 Seg Neutrophils % Not Reportable Lymphocytes % Not Reportable Monocytes % Not Reportable Eosinophils % Not Reportable Basophils % Not Reportable Absolute Neutrophils Not Reportable Absolute Lymphocytes Not Reportable Absolute Monocytes Not Reportable Absolute Eosinophils Not Reportable Absolute Basophils Not Reportable VBG pH VBG pCO2 VBG HCO3 VBG Base Excess Sodium 140.5 Potassium 3.3 L Chloride 95 L Carbon Dioxide 35 H Anion Gap 11 BUN 21 H Creatinine 0.87 Est GFR ( Amer) > 60 Est GFR (Non-Af Amer) > 60 Glucose 161 H Lactic Acid 1.9 Calcium 8.1 L Magnesium Total Bilirubin 0.6 AST 20 ALT 26 Alkaline Phosphatase 100 Total Protein 6.3 Albumin 3.6 Urine Color Urine Appearance Urine pH Ur Specific [place] Urine Protein Urine Glucose (UA) Urine Ketones Urine Blood Urine Nitrite Ur Leukocyte Esterase Urine WBC (Auto) Urine RBC (Auto) 03/12/18 03/12/18 03/12/18 20:40 20:40 20:42 WBC RBC Hgb Hct MCV MCH MCHC RDW Plt Count Seg Neutrophils % Lymphocytes % Monocytes % Eosinophils % Basophils % Absolute Neutrophils Absolute Lymphocytes Absolute Monocytes Absolute Eosinophils Absolute Basophils VBG pH 7.38 VBG pCO2 67.0 H* VBG HCO3 38.6 H VBG Base Excess 10.0 Sodium Potassium Chloride Carbon Dioxide Anion Gap BUN Creatinine Est GFR ( Amer) Est GFR (Non-Af Amer) Glucose Lactic Acid Calcium Magnesium 2.0 Total Bilirubin AST ALT Alkaline Phosphatase Total Protein Albumin Urine Color YELLOW Urine Appearance CLEAR Urine pH 5.0 Ur Specific [place] 1.021 Urine Protein 30 H Urine Glucose (UA) NEGATIVE Urine Ketones NEGATIVE Urine Blood NEGATIVE Urine Nitrite NEGATIVE Ur Leukocyte Esterase NEGATIVE Urine WBC (Auto) 1 Urine RBC (Auto) 1 03/12/18 03/12/18 03/12/18 20:40 20:40 20:40 Creatine Kinase 22 L CK-MB (CK-2) 1.03 Troponin I 0.018 NT-Pro-B Natriuret Pep 9680 H Impressions: Chest X-Ray 03/12/18 20:08 IMPRESSION: Pulmonary edema with small pleural effusions. Assessment & Plan - Diagnosis (1) Pneumonia Qualifiers: Pneumonia type: due to unspecified organism Laterality: bilateral Lung location: lower lobe of lung Qualified Code(s): J18.9 - Pneumonia, unspecified organism Is this a current diagnosis for this admission?: Yes Plan: Pneumonia care set deployed, empiric antibiotics, follow-up CBC and blood culture (2) Acute hypoxemic respiratory failure Is this a current diagnosis for this admission?: Yes Plan: Secondary to #1, complicated by COPD. BiPAP, Xopenex, incentive spirometry ordered (3) Atrial fibrillation with RVR Is this a current diagnosis for this admission?: Yes Plan: Continue IV Cardizem, Cardizem 60 every 6 ordered with titration of IV as tolerated. Patient refuses anticoagulation secondary to previous bleeding. (4) Hypokalemia Is this a current diagnosis for this admission?: Yes Plan: Follow-up magnesium, replete potassium with follow-up chemistry - Time Time Spent: 50 to 70 Minutes - Inpatient Certification Medical Necessity: Need Close Monitoring Due to Risk of Patient Decompensation
[2018-03-13] MEDS: POTASSI CL 20 MEQ/50 ML RIDER 20 MEQ/50 ML RTUPB IV SCH ×3 (06:37→09:09)
[2018-03-13 07:16] LABS: ABSOLUTE LYMPHOCYTES (AUTO) 0.8 10^3/uL (0.5-4.7); ABSOLUTE MONOCYTES (AUTO) 0.7 10^3/uL (0.1-1.4); ABSOLUTE NEUT (AUTO) 10.4 10^3/uL (1.7-8.2); BASOPHILS % (AUTO) 0.2 % (0-2); EOSINOPHILS % (AUTO) 0.4 % (0-6); HEMATOCRIT 31.1 % (37.9-51.0); HEMOGLOBIN 10.2 g/dL (13.5-17.0); LYMPHOCYTES % (AUTO) 6.8 % (13-45); MEAN CORPUSCULAR HEMOGLOBIN 30.5 pg (27.0-33.4); MEAN CORPUSCULAR VOLUME 93 fl (80-97); PLATELET COUNT 219 10^3/uL (150-450); RED BLOOD COUNT 3.36 10^6/uL (4.35-5.55); RED CELL DISTRIBUTION WIDTH 15.3 % (11.5-14.0); SEGMENTED NEUTROPHILS % (AUTO) 86.6 % (42-78); TOTAL CELLS COUNTED % (AUTO) 100 %
[2018-03-13 07:34] LABS: ANION GAP 6 (5-19); BLOOD UREA NITROGEN 19 mg/dL (7-20); CALCIUM 7.9 mg/dL (8.4-10.2); CARBON DIOXIDE 38 mmol/L (22-30); CHLORIDE 96 mmol/L (98-107); GLUCOSE 92 mg/dL (75-110); POTASSIUM 3.4 mmol/L (3.6-5.0); SODIUM 139.8 mmol/L (137-145)
[2018-03-13 07:44] LABS: TROPONIN I 0.028 ng/mL
--- NOTE | 2018-03-13 07:45 | EKG REPORT ---
SEVERITY:- ABNORMAL ECG - ATRIAL FLUTTER WITH 2:1 AV BLOCK VENTRICULAR TRIGEMINY RIGHT BUNDLE BRANCH BLOCK LVH WITH IVCD AND SECONDARY REPOL ABNRM : Confirmed by: Daniel Richter MD 13-Mar-2018 07:44:11
[2018-03-13] MEDS: PREDNISONE 20 MG TABLET PO SCH ×2 (09:11→18:02)
[2018-03-13] MEDS: FLUTICASONE NASAL SPRAY 50 MCG/SPRY 120 SPRAY/16 GM NASL SCH ×2 (10:52→21:10)
[2018-03-13] MEDS ORDERED: CHLORPHENIRAMINE MALEATE 4 MG TABLET PO ONE (11:00)
[2018-03-13 12:43] LABS: CREATINE KINASE MB 1.08 ng/mL (<4.55); TROPONIN I 0.019 ng/mL
[2018-03-13] MEDS: DILTIAZEM HCL/D5W 125 MG/125 ML RTUINJ IV PRN ×2 (14:03→22:37)
[2018-03-13] MEDS: HEPARIN SOD (PORCINE) 5,000 UNIT/ML 1 ML SYRINGE SUBCUT SCH ×2 (14:08→21:08)
--- NOTE | 2018-03-13 14:30 | PDOC PROGRESS REPORT ---
Subjective Progress Note for:: 03/13/18 Subjective:: Patient was seen and examined today. He does not use oxygen at home. He is currently on nasal cannula. He says he is feels better. He was started on Cardizem drip last night for atrial flutter with rapid ventricular response. Currently his rate is controlled and is in sinus rhythm. Reason For Visit: COPD EXACERBATION PNEUMONIA Physical Exam Vital Signs: Temp Pulse Resp BP Pulse Ox 98.1 F 48 L 18 123/65 94 03/13/18 12:56 03/13/18 12:56 03/13/18 12:56 03/13/18 12:56 03/13/18 12:56 Intake & Output 03/12/18 03/13/18 03/14/18 06:59 06:59 06:59 Intake Total 150 142 Output Total 450 Balance 150 -308 Weight 148 lb 2.41 oz General appearance: PRESENT: no acute distress, cooperative Head exam: PRESENT: atraumatic, normocephalic Mouth exam: PRESENT: moist, neck supple Neck exam: ABSENT: meningismus, tenderness Respiratory exam: PRESENT: accessory muscle use, decreased breath sounds, rhonchi Cardiovascular exam: PRESENT: RRR Pulses: PRESENT: normal radial pulses GI/Abdominal exam: PRESENT: normal bowel sounds, soft. ABSENT: tenderness Rectal exam: PRESENT: deferred Neurological exam: PRESENT: alert, awake, oriented to person, oriented to place, oriented to time, oriented to situation Psychiatric exam: PRESENT: appropriate affect. ABSENT: agitated, anxious Results Laboratory Results: 03/13/18 06:37 03/13/18 06:37 03/12/18 03/12/18 03/12/18 20:40 20:40 20:40 WBC 15.2 H RBC 3.58 L Hgb 11.0 L Hct 33.3 L MCV 93 MCH 30.7 MCHC 33.0 RDW 15.6 H Plt Count 243 Seg Neutrophils % Not Reportable Lymphocytes % Not Reportable Monocytes % Not Reportable Eosinophils % Not Reportable Basophils % Not Reportable Absolute Neutrophils Not Reportable Absolute Lymphocytes Not Reportable Absolute Monocytes Not Reportable Absolute Eosinophils Not Reportable Absolute Basophils Not Reportable VBG pH VBG pCO2 VBG HCO3 VBG Base Excess Sodium 140.5 Potassium 3.3 L Chloride 95 L Carbon Dioxide 35 H Anion Gap 11 BUN 21 H Creatinine 0.87 Est GFR ( Amer) > 60 Est GFR (Non-Af Amer) > 60 Glucose 161 H Lactic Acid 1.9 Calcium 8.1 L Magnesium Total Bilirubin 0.6 AST 20 ALT 26 Alkaline Phosphatase 100 Total Protein 6.3 Albumin 3.6 Urine Color Urine Appearance Urine pH Ur Specific [place] Urine Protein Urine Glucose (UA) Urine Ketones Urine Blood Urine Nitrite Ur Leukocyte Esterase Urine WBC (Auto) Urine RBC (Auto) 03/12/18 03/12/18 03/12/18 20:40 20:40 20:42 WBC RBC Hgb Hct MCV MCH MCHC RDW Plt Count Seg Neutrophils % Lymphocytes % Monocytes % Eosinophils % Basophils % Absolute Neutrophils Absolute Lymphocytes Absolute Monocytes Absolute Eosinophils Absolute Basophils VBG pH 7.38 VBG pCO2 67.0 H* VBG HCO3 38.6 H VBG Base Excess 10.0 Sodium Potassium Chloride Carbon Dioxide Anion Gap BUN Creatinine Est GFR ( Amer) Est GFR (Non-Af Amer) Glucose Lactic Acid Calcium Magnesium 2.0 Total Bilirubin AST ALT Alkaline Phosphatase Total Protein Albumin Urine Color YELLOW Urine Appearance CLEAR Urine pH 5.0 Ur Specific [place] 1.021 Urine Protein 30 H Urine Glucose (UA) NEGATIVE Urine Ketones NEGATIVE Urine Blood NEGATIVE Urine Nitrite NEGATIVE Ur Leukocyte Esterase NEGATIVE Urine WBC (Auto) 1 Urine RBC (Auto) 1 03/13/18 03/13/18 06:37 06:37 WBC 12.0 H RBC 3.36 L Hgb 10.2 L Hct 31.1 L MCV 93 MCH 30.5 MCHC 33.0 RDW 15.3 H Plt Count 219 Seg Neutrophils % 86.6 H Lymphocytes % 6.8 L Monocytes % 6.0 Eosinophils % 0.4 Basophils % 0.2 Absolute Neutrophils 10.4 H Absolute Lymphocytes 0.8 Absolute Monocytes 0.7 Absolute Eosinophils 0.0 Absolute Basophils 0.0 VBG pH VBG pCO2 VBG HCO3 VBG Base Excess Sodium 139.8 Potassium 3.4 L Chloride 96 L Carbon Dioxide 38 H Anion Gap 6 BUN 19 Creatinine 0.85 Est GFR ( Amer) > 60 Est GFR (Non-Af Amer) > 60 Glucose 92 Lactic Acid Calcium 7.9 L Magnesium Total Bilirubin AST ALT Alkaline Phosphatase Total Protein Albumin Urine Color Urine Appearance Urine pH Ur Specific [place] Urine Protein Urine Glucose (UA) Urine Ketones Urine Blood Urine Nitrite Ur Leukocyte Esterase Urine WBC (Auto) Urine RBC (Auto) 03/12/18 03/12/1819 20:40 20:40 20:40 Creatine Kinase 22 L CK-MB (CK-2) 1.03 Troponin I 0.018 NT-Pro-B Natriuret Pep 9680 H 03/13/18 03/13/18 03/13/18 06:37 06:37 12:04 Creatine Kinase 21 L 21 L CK-MB (CK-2) 1.00 Troponin I 0.028 NT-Pro-B Natriuret Pep 03/13/18 12:04 Creatine Kinase CK-MB (CK-2) 1.08 Troponin I 0.019 NT-Pro-B Natriuret Pep Impressions: Chest X-Ray 03/12/18 20:08 IMPRESSION: Pulmonary edema with small pleural effusions. Assessment & Plan - Diagnosis (1) Acute hypoxemic respiratory failure Is this a current diagnosis for this admission?: Yes Plan: Patient is off BiPAP now. Continue oxygen via nasal cannula and wean down as tolerated. He is on home oxygen. (2) Pneumonia Is this a current diagnosis for this admission?: Yes Plan: Continue current antibiotics. Follow-up white count and blood culture (3) Atrial fibrillation with RVR Is this a current diagnosis for this admission?: Yes Plan: Was started on Cardizem drip last night and also oral Cardizem. Now he is in sinus rhythm. Wean Cardizem drip and stop. (4) Hypokalemia Is this a current diagnosis for this admission?: Yes Plan: Replace as needed. Follow levels.
[2018-03-13 19:50] LABS: CREATINE KINASE MB 1.26 ng/mL (<4.55); TROPONIN I 0.014 ng/mL
[2018-03-13] MEDS: LEVOFLOXACIN 750 MG/D5W RTU 750 MG/150 ML RTUPB IV SCH (21:08)
[2018-03-14] MEDS: IPRATROPIUM BROMIDE 0.02% NEB 0.5 MG/2.5 ML AMPUL NEB SCH ×4 (01:49→20:51)
[2018-03-14] MEDS: LEVALBUTEROL HCL NEB 1.25 MG/3 ML AMPUL NEB SCH ×4 (01:49→20:51)
[2018-03-14] MEDS: HEPARIN SOD (PORCINE) 5,000 UNIT/ML 1 ML SYRINGE SUBCUT SCH ×4 (05:00→21:09)
[2018-03-14] MEDS: DILTIAZEM HCL 60 MG TABLET PO SCH ×4 (05:01→23:31)
[2018-03-14 06:14] LABS: ARTERIAL BLOOD BASE EXCESS 9.4 mmol/L; ARTERIAL BLOOD H2CO3 1.84 mmol/L (1.05-1.35); ARTERIAL BLOOD HCO3 36.1 mmol/L (20-24); ARTERIAL BLOOD PCO2 61.2 mmHg (35-45); ARTERIAL BLOOD PH 7.39 (7.35-7.45); ARTERIAL BLOOD PO2 65.1 mmHg (80-100)
[2018-03-14 06:15] LABS: ARTERIAL BLOOD FIO2 6L
[2018-03-14 06:28] LABS: HEMATOCRIT 30.7 % (37.9-51.0); HEMOGLOBIN 10.3 g/dL (13.5-17.0); MEAN CORPUSCULAR HEMOGLOBIN 30.9 pg (27.0-33.4); MEAN CORPUSCULAR HGB CONC 33.6 g/dL (32.0-36.0); MEAN CORPUSCULAR VOLUME 92 fl (80-97); PLATELET COUNT 191 10^3/uL (150-450); RED BLOOD COUNT 3.34 10^6/uL (4.35-5.55); RED CELL DISTRIBUTION WIDTH 15.3 % (11.5-14.0); WHITE BLOOD COUNT 8.4 10^3/uL (4.0-10.5)
[2018-03-14 06:48] LABS: ANION GAP 6 (5-19); BLOOD UREA NITROGEN 29 mg/dL (7-20); CALCIUM 8.3 mg/dL (8.4-10.2); CARBON DIOXIDE 37 mmol/L (22-30); CHLORIDE 95 mmol/L (98-107); GLUCOSE 132 mg/dL (75-110); POTASSIUM 4.2 mmol/L (3.6-5.0); SODIUM 137.7 mmol/L (137-145)
--- NOTE | 2018-03-14 09:03 | RADIOLOGY REPORT (SQ) ---
EXAM DESCRIPTION: CHEST SINGLE VIEW COMPLETED DATE/TIME: 03/14/2018 8:54 am REASON FOR STUDY: pneumonia COMPARISON: 03/12/2018 NUMBER OF VIEWS: One view. TECHNIQUE: Single frontal radiographic image of the chest acquired. LIMITATIONS: None. FINDINGS: LUNGS AND PLEURA: Stable appearance. MEDIASTINUM AND HILAR STRUCTURES: Stable heart size and mediastinal structures. HEART AND VASCULAR STRUCTURES: Stable appearance. BONES: No acute findings. HARDWARE: None in the chest. OTHER: No other significant finding. IMPRESSION: STABLE APPEARANCE OF THE CHEST. TECHNICAL DOCUMENTATION: JOB ID: [id number] [employer]- All Rights Reserved Reading location - IP/workstation name: [email or web address]
[2018-03-14] MEDS: FLUTICASONE NASAL SPRAY 50 MCG/SPRY 120 SPRAY/16 GM NASL SCH ×2 (11:50→21:08)
[2018-03-14] MEDS: PREDNISONE 20 MG TABLET PO SCH ×2 (11:51→19:25)
--- NOTE | 2018-03-14 14:38 | ER Document Report ---
Entered by DANIEL ASHER SCRIBE 03/12/182039 Acting as scribe for:JI MEEKS MD ED General - General Stated Complaint: ALTERED MENTAL STATUS Time Seen by Provider: 03/12/18 20:20 Primary Care Provider: MAGALYS,VEENA [Primary Care Provider] - Follow up as needed Mode of Arrival: Medic Information source: Patient, Emergency Med Personnel Notes: Patient is an 82 year old male with A. fib, colorectal cancer presents to the emergency department via EMS due to altered mental status. According to EMS, they were called to the scene due to increased confusion within the patient. Patient states he has had increased productive cough with a small amount of sputum onset this morning. Patient states he feels his breathing has improved since being placed on BiPAP. EMS recorded a rectal temperature of 102.2 and proceeded to administer 975mg of tylenol. TRAVEL OUTSIDE OF THE [place] IN LAST 30 DAYS: No - Related Data Allergies/Adverse Reactions: No Known Allergies Allergy (Verified 12/12/15 11:45) Past Medical History - General Information source: Patient - Social History Smoking Status: Former Smoker Cigarette use (# per day): No Chew tobacco use (# tins/day): No Smoking Education Provided: No Frequency of alcohol use: None Family History: CAD, Malignancy, Other - Old age - Past Medical History Cardiac Medical History: Reports: Hx Atrial Fibrillation, Hx Hypertension Pulmonary Medical History: Reports: Hx COPD, Hx Pneumonia Malignancy Medical History: Reports Hx Colorectal Cancer, Reports Hx Prostate Cancer GI Medical History: Reports: Hx Gastroesophageal Reflux Disease Musculoskeletal Medical History: Reports Hx Arthritis Past Surgical History: Reports: Hx Abdominal Surgery, Hx Colostomy, Hx Herniorrhaphy - Immunizations Hx Diphtheria, Pertussis, Tetanus Vaccination: Yes Hx Pneumococcal Vaccination: 11/11/13 Review of Systems - Review of Systems Constitutional: No symptoms reported EENT: No symptoms reported Cardiovascular: No symptoms reported Respiratory: See HPI, Cough Gastrointestinal: No symptoms reported Genitourinary: No symptoms reported Male Genitourinary: No symptoms reported Musculoskeletal: No symptoms reported Skin: No symptoms reported Hematologic/Lymphatic: No symptoms reported Neurological/Psychological: See HPI, Confusion -: Yes All other systems reviewed and negative Physical Exam - Vital signs Vitals: Temp 102.2 F H 03/12/18 20:08 - Notes Notes: GENERAL: Alert, appears frail. No acute distress. HEAD: Normocephalic, atraumatic. EYES: Pupils equal, round, and reactive to light. Extraocular movements intact. ENT: Oral mucosa moist, tongue midline. NECK: Full range of motion. Supple. Trachea midline. LUNGS: On BiPAP; Set rate: 8, inspiratory pressure: 12, expiratory pressure: 6. Respiratory rate: 30. FiO2: 35. 95% oxygen saturation on monitor. HEART: Regular rate and rhythm. No murmurs, gallops, or rubs. ABDOMEN: Protuberant. Soft, non-tender. Non-distended. Bowel sounds present in all 4 quadrants. EXTREMITIES: Moves all 4 extremities spontaneously. 2+ pitting edema in the BLE. NEUROLOGICAL: Alert and oriented. Able to describe how his symptoms were onset. PSYCH: Normal affect, normal mood. SKIN: Warm, dry, normal turgor. No rashes or lesions noted. . Course - Re-evaluation Re-evalutation: 03/12/18 21:58 The patient was put on BiPAP, and states that his breathing does feel better. His initial EKG showed atrial flutter with 2-1 AV block and a ventricular rate of 142. After Cardizem bolus Cardizem drip and time on the BiPAP is much improved and now appears to be in A. fib with a pulse of 105, pulse ox 95%, and his blood pressure which had been over 200 systolic is now down to 152/74. White blood cell count is elevated with a shift, urine is clean, chest x-ray does not show infiltrate, his abdomen was very soft and not tender so there is no obvious source of infection. Influenza test will be done. - Vital Signs Vital signs: Temp Pulse Resp BP Pulse Ox 102.2 F H 14 95 03/12/18 20:08 03/12/18 21:13 03/12/18 21:13 - Laboratory Result Diagrams: 03/12/18 20:40 03/12/18 20:40 Laboratory results interpreted by me: 03/12/18 03/12/18 03/12/18 20:40 20:40 20:40 WBC 15.2 H RBC 3.58 L Hgb 11.0 L Hct 33.3 L RDW 15.6 H Seg Neuts % (Manual) 93 H Lymphocytes % (Manual) 5 L Monocytes % (Manual) 2 L Abs Neuts (Manual) 14.1 H VBG pCO2 67.0 H* VBG HCO3 38.6 H Potassium 3.3 L Chloride 95 L Carbon Dioxide 35 H BUN 21 H Glucose 161 H POC Glucose Calcium 8.1 L Creatine Kinase 22 L NT-Pro-B Natriuret Pep Urine Protein Urine Urobilinogen Urine Ascorbic Acid 03/12/18 03/12/18 03/12/18 20:40 20:42 20:47 WBC RBC Hgb Hct RDW Seg Neuts % (Manual) Lymphocytes % (Manual) Monocytes % (Manual) Abs Neuts (Manual) VBG pCO2 VBG HCO3 Potassium Chloride Carbon Dioxide BUN Glucose POC Glucose 185 H Calcium Creatine Kinase NT-Pro-B Natriuret Pep 9680 H Urine Protein 30 H Urine Urobilinogen 4.0 H Urine Ascorbic Acid 40 H - Diagnostic Test Radiology reviewed: Image reviewed, Reports reviewed - Mild pulmonary edema with small effusions - EKG Interpretation by Me EKG shows normal: [place], Intervals, QRS Complexes, ST-T Waves Rate: Tachycardia - 142 Rhythm: A.Flutter, with a 2:1 Block - Consults Dr. Dixon Time consulted: 21:50 Consulted provider: will come to ER Discharge - Discharge Clinical Impression: Atrial flutter with rapid ventricular response Fever Qualifiers: Fever type: unspecified Qualified Code(s): R50.9 - Fever, unspecified Leukocytosis Qualifiers: Leukocytosis type: unspecified Qualified Code(s): D72.829 - Elevated white blood cell count, unspecified Pulmonary edema Qualifiers: Chronicity: acute Qualified Code(s): J81.0 - Acute pulmonary edema High blood pressure Qualifiers: Hypertension type: essential hypertension Qualified Code(s): I10 - Essential (primary) hypertension Disposition: ADMITTED INPATIENT I personally performed the services described in the documentation, reviewed and edited the documentation which was dictated to the scribe in my presence, and it accurately records my words and actions.
--- NOTE | 2018-03-14 17:10 | PDOC DISCHARGE SUMMARY ---
General - Admit/Disc Date/PCP Admission Date/Primary Care Provider: 03/12/18 22:49 [facility] Discharge Date: 03/15/18 - Discharge Diagnosis (1) Acute hypoxemic respiratory failure Is this a current diagnosis for this admission?: Yes (2) Pneumonia Is this a current diagnosis for this admission?: Yes (3) Atrial fibrillation with RVR Is this a current diagnosis for this admission?: Yes (4) Hypokalemia Is this a current diagnosis for this admission?: Yes - Additional Information Resuscitation Status: Full Code Discharge Diet: As Tolerated Discharge Activity: Activity As Tolerated Prescriptions: RX: Guaifenesin [Robitussin Syrup 200 mg/10 ml Ud Cup] 200 mg PO Q4HP PRN #1 udc PRN Reason: RX: Ipratropium/Albuterol Sulfate [Duoneb 3 ml Ampul] 3 ml NEB Q4HP PRN #60 vial.neb PRN Reason: RX: Levofloxacin [Levaquin] 750 mg PO DAILY #7 tablet RX: Prednisone [Deltasone 20 mg Tablet] 20 mg PO BID #10 tablet Home Medications: RX: Diltiazem HCl [Diltiazem 24Hr ER] 240 mg PO DAILY 03/13/18 RX: Fluticasone Propionate [Flonase Nasal [place] 50 Mcg/[place] 16 gm] 2 spray NASL DAILY 03/13/18 RX: Hydrochlorothiazide [Hydrodiuril 25 mg Tablet] 25 mg PO DAILY 03/13/18 RX: Meloxicam [Mobic] 7.5 mg PO DAILY 03/13/18 RX: Omeprazole 20 mg PO DAILY 03/13/18 RX: Tamsulosin HCl [Flomax 0.4 mg Cap.sr] 0.4 mg PO DAILY 03/13/18 RX: Guaifenesin [Robitussin Syrup 200 mg/10 ml Ud Cup] 200 mg PO Q4HP PRN #1 udc 03/14/18 RX: Ipratropium/Albuterol Sulfate [Duoneb 3 ml Ampul] 3 ml NEB Q4HP PRN #60 vial.neb 03/14/18 RX: Levofloxacin [Levaquin] 750 mg PO DAILY #7 tablet 03/14/18 RX: Prednisone [Deltasone 20 mg Tablet] 20 mg PO BID #10 tablet 03/14/18 History of Present Illness History of Present Illness: SHANEKA SIERRA is a 82 year old male with a past medical history of A. fib a flutter without anticoagulation secondary to bleed, COPD, chronic bronchitis, obstructive sleep apnea, cervical stenosis, psoriatic arthritis and GERD. He presents with 72 hours of shortness of breath and a nonproductive cough with fever chills and tachycardia prompting evaluation emergency room where he is found to have uncontrolled a flutter. Bilateral rhonchi and a nonproductive cough, respiratory distress with retraction and hypoxia of 80% on room air. Chest x-ray suggests infiltrate and edema, labs reveal leukocytosis and a BNP of 9000. He started on IV Cardizem, BiPAP and empiric antibiotics and referred to the hospitalist for admission. Hospital Course Hospital Course: On admission, the patient was started on BiPAP. He was then downgraded to nasal cannula oxygen. And he continued to be stable on that. He currently has no oxygen at home but apparently was in the process of getting oxygen and will have oxygen on discharge. He was started on Levaquin and will be discharged on oral Levaquin to finish a course of antibiotics. He is known to have atrial fibrillation. He had rapid response on admission and was started on Cardizem drip. Then he was switched to oral Cardizem. He is not a candidate for anticoagulation due to prior history of bleeding. He had hypokalemia that was replaced and normalized. Patient is stable for discharge. He will need home care. Physical Exam Vital Signs: Temp Pulse Resp BP Pulse Ox 98.4 F 100 20 158/64 H 94 03/14/18 15:52 03/14/18 15:52 03/14/18 15:52 03/14/18 15:52 03/14/18 16:00 Intake & Output 03/13/18 03/14/18 03/15/18 06:59 06:59 06:59 Intake Total 150 1112 Output Total 1400 400 Balance 150 -288 -400 Weight 148 lb 2.41 oz 148 lb 5.938 oz General appearance: PRESENT: no acute distress, cooperative Head exam: PRESENT: atraumatic, normocephalic Ear exam: ABSENT: bleeding, drainage Mouth exam: PRESENT: moist, neck supple Neck exam: ABSENT: meningismus, tenderness Respiratory exam: PRESENT: rhonchi. ABSENT: accessory muscle use Cardiovascular exam: PRESENT: RRR GI/Abdominal exam: PRESENT: normal bowel sounds, soft Rectal exam: PRESENT: deferred Neurological exam: PRESENT: alert, awake, oriented to person, oriented to place, oriented to time, oriented to situation Results Laboratory Results: 03/14/18 06:13 03/14/18 06:13 03/14/18 03/14/18 03/14/18 05:50 06:13 06:13 WBC 8.4 RBC 3.34 L Hgb 10.3 L Hct 30.7 L MCV 92 MCH 30.9 MCHC 33.6 RDW 15.3 H Plt Count 191 Carbonic Acid 1.84 H HCO3/H2CO3 Ratio 19:1 ABG pH 7.39 ABG pCO2 61.2 H ABG pO2 65.1 L ABG HCO3 36.1 H ABG O2 Saturation 92.0 L ABG Base Excess 9.4 FiO2 6L Sodium 137.7 Potassium 4.2 Chloride 95 L Carbon Dioxide 37 H Anion Gap 6 BUN 29 H Creatinine 0.97 Est GFR ( Amer) > 60 Est GFR (Non-Af Amer) > 60 Glucose 132 H Calcium 8.3 L 03/12/18 20:42 Catheterized Urine Urine Culture - Final NO GROWTH 2 DAYS 03/12/18 03/12/18 03/12/18 20:40 20:40 20:40 Creatine Kinase 22 L CK-MB (CK-2) 1.03 Troponin I 0.018 NT-Pro-B Natriuret Pep 9680 H 03/13/18 03/13/18 03/13/18 06:37 06:37 12:04 Creatine Kinase 21 L 21 L CK-MB (CK-2) 1.00 Troponin I 0.028 NT-Pro-B Natriuret Pep 03/13/18 03/13/18 03/13/18 12:04 18:59 18:59 Creatine Kinase 26 L CK-MB (CK-2) 1.08 1.26 Troponin I 0.019 0.014 NT-Pro-B Natriuret Pep Impressions: Chest X-Ray 03/14/18 06:00 IMPRESSION: STABLE APPEARANCE OF THE CHEST. Qualifiers - * PATIENT BEING DISCHARGED WITH ANY OF THE FOLLOWING DIAGNOSIS: No
[2018-03-14] MEDS: LEVOFLOXACIN 750 MG/D5W RTU 750 MG/150 ML RTUPB IV SCH (21:08)
[2018-03-15] MEDS: LEVALBUTEROL HCL NEB 1.25 MG/3 ML AMPUL NEB SCH ×2 (02:18→08:13)
[2018-03-15] MEDS: IPRATROPIUM BROMIDE 0.02% NEB 0.5 MG/2.5 ML AMPUL NEB SCH ×2 (02:18→08:13)
[2018-03-15] MEDS: HEPARIN SOD (PORCINE) 5,000 UNIT/ML 1 ML SYRINGE SUBCUT SCH (05:16)
[2018-03-15] MEDS: DILTIAZEM HCL 60 MG TABLET PO SCH (05:17)
[2018-03-15] MEDS: FLUTICASONE NASAL SPRAY 50 MCG/SPRY 120 SPRAY/16 GM NASL SCH (09:22)
[2018-03-15] MEDS: PREDNISONE 20 MG TABLET PO SCH (09:22)
[2018-03-15 10:19] VITALS: BP 126/66
== END 2018-03-15 11:15 | disposition home health service (06) | DRG 189 ==
LOC: ER 20:03 → EH 22:49 → 3W 03-13 05:27
PROVIDERS: ADMIT Internal Medicine; ATTEND Internal Medicine
PROC: 5A09457 Assistance with Respiratory Ventilation, 24-96 Consecutive Hours, Continuous Positive Airway Pressure (ICD-10-PCS; principal; 2018-03-12)
PROC: 3E0F73Z Introduction of Anti-inflammatory into Respiratory Tract, Via Natural or Artificial Opening (ICD-10-PCS; 2018-03-12)
DX: J96.00 Acute respiratory failure, unspecified whether with hypoxia or hypercapnia (principal); J18.9 Pneumonia, unspecified organism; J44.1 Chronic obstructive pulmonary disease with (acute) exacerbation; J44.0 Chronic obstructive pulmonary disease with (acute) lower respiratory infection; E87.6 Hypokalemia; G47.33 Obstructive sleep apnea (adult) (pediatric); L40.50 Arthropathic psoriasis, unspecified; K21.9 Gastro-esophageal reflux disease without esophagitis; I10 Essential (primary) hypertension; I48.91 Unspecified atrial fibrillation; K59.00 Constipation, unspecified; Z85.038 Personal history of other malignant neoplasm of large intestine; Z93.3 Colostomy status; Z79.899 Other long term (current) drug therapy; Z53.29 Procedure and treatment not carried out because of patient's decision for other reasons; Z85.46 Personal history of malignant neoplasm of prostate; Z82.49 Family history of ischemic heart disease and other diseases of the circulatory system
CPT/HCPCS: 36415; 51701; 71045; 80048; 80053; 81001; 82550; 82553; 82803; 82962; 83605; 83735; 83880; 84484; 85025; 85027; 85610; 87040; 87086; 93005; 93010; 94660; 94667; 94668; 94799; 96374; 99285; C1758; J1644; J1956; J3480; J3490; J7512

== ENCOUNTER 2018-03-17 16:14 | Inpatient (IN) | payer OTHER, MEDICARE, MEDICAID ==
[~2018-03-17 16:14] MED LIST: LEVOFLOXACIN 500 MG/D5W RTU 500 MG/100 ML RTUPB IV SCH
[2018-03-17 16:31] LABS: ABSOLUTE LYMPHOCYTES (AUTO) 0.8 10^3/uL (0.5-4.7); ABSOLUTE MONOCYTES (AUTO) 0.3 10^3/uL (0.1-1.4); ABSOLUTE NEUT (AUTO) 6.3 10^3/uL (1.7-8.2); BASOPHILS % (AUTO) 0.1 % (0-2); HEMOGLOBIN 11.6 g/dL (13.5-17.0); LYMPHOCYTES % (AUTO) 10.6 % (13-45); MEAN CORPUSCULAR HEMOGLOBIN 30.6 pg (27.0-33.4); MEAN CORPUSCULAR HGB CONC 33.2 g/dL (32.0-36.0); MEAN CORPUSCULAR VOLUME 92 fl (80-97); MONOCYTES % (AUTO) 4.2 % (3-13); PLATELET COUNT 263 10^3/uL (150-450); RED BLOOD COUNT 3.79 10^6/uL (4.35-5.55); RED CELL DISTRIBUTION WIDTH 15.4 % (11.5-14.0); SEGMENTED NEUTROPHILS % (AUTO) 85.1 % (42-78); TOTAL CELLS COUNTED % (AUTO) 100 %; WHITE BLOOD COUNT 7.4 10^3/uL (4.0-10.5)
[2018-03-17 16:47] LABS: ALANINE AMINOTRANSFERASE 43 U/L (21-72); ALBUMIN 3.5 g/dL (3.5-5.0); ALKALINE PHOSPHATASE 78 U/L (38-126); ANION GAP 8 (5-19); ASPARTATE AMINO TRANSFERASE 31 U/L (17-59); BILIRUBIN,DIRECT 0.1 mg/dL (0.0-0.4); BILIRUBIN,TOTAL 0.3 mg/dL (0.2-1.3); BLOOD UREA NITROGEN 30 mg/dL (7-20); CALCIUM 8.7 mg/dL (8.4-10.2); CARBON DIOXIDE 37 mmol/L (22-30); CHLORIDE 94 mmol/L (98-107); GLUCOSE 113 mg/dL (75-110); POTASSIUM 4.6 mmol/L (3.6-5.0); SODIUM 138.7 mmol/L (137-145); TOTAL PROTEIN 6.3 g/dL (6.3-8.2)
[2018-03-17 16:51] LABS: CREATINE KINASE < 20 U/L (55-170)
[2018-03-17 16:59] LABS: CREATINE KINASE MB 1.54 ng/mL (<4.55); TROPONIN I 0.021 ng/mL
--- NOTE | 2018-03-17 17:01 | EKG REPORT ---
SEVERITY:- ABNORMAL ECG - ATRIAL FLUTTER WITH VARIABLE AV BLOCK VENTRICULAR PREMATURE COMPLEX RBBB AND LAFB LEFT VENTRICULAR HYPERTROPHY : Confirmed by: Lindsay Avila 17-Mar-2018 17:00:27
--- NOTE | 2018-03-17 17:02 | RADIOLOGY REPORT (SQ) ---
EXAM DESCRIPTION: CHEST SINGLE VIEW COMPLETED DATE/TIME: 03/17/2018 4:38 pm REASON FOR STUDY: bed 5 db COMPARISON: Chest films 02/17/2016, 07/06/2017, 03/12/2018, 03/14/2018 EXAM PARAMETERS: NUMBER OF VIEWS: One view. TECHNIQUE: Single frontal radiographic view of the chest acquired. RADIATION DOSE: NA LIMITATIONS: None. FINDINGS: LUNGS AND PLEURA: Upper lobes are hyperlucent from obstructive disease. There is bronchovascular crowding at the bases with patchy alveolar and interstitial infiltrates from pulmonary edema. Pneumonia could not be excluded. Trace bilateral pleural effusions. No pneumothorax. MEDIASTINUM AND HILAR STRUCTURES: No masses. Contour normal. HEART AND VASCULAR STRUCTURES: Moderate cardiomegaly BONES: No acute findings. HARDWARE: None in the chest. OTHER: No other significant finding. IMPRESSION: Suspect fluid overload or congestive failure superimposed on obstructive lung disease wi th bilateral pulmonary edema and trace pleural effusions. Pneumonia could not entirely be excluded TECHNICAL DOCUMENTATION: JOB ID: [id number] [employer]- All Rights Reserved Reading location - IP/workstation name: [email or web address]
[2018-03-17] MEDS ORDERED: DILTIAZEM HCL INJ 25 MG/5 ML VIAL IV ONE (17:08)
--- NOTE | 2018-03-17 17:09 | ER Document Report ---
ED General - General Chief Complaint: Arrhythmia Stated Complaint: DIFFICULTY BREATHING Time Seen by Provider: 03/17/18 16:56 Mode of Arrival: Wheelchair Information source: Patient Notes: This is an 82-year-old man with a history of atrial fibrillation (no anticoagulation), COPD, obstructive sleep apnea, oxygen dependent (3 L nasal cannula) with a recent admission for COPD, respiratory failure and pneumonia who presents back to the emergency room with worsening shortness of breath. Patient noted to be hypertensive and tachycardia. TRAVEL OUTSIDE OF THE [place] IN LAST 30 DAYS: No - HPI Onset: Just prior to arrival Onset/Duration: Gradual Quality of pain: No pain Severity: None Pain Level: Denies Associated symptoms: Shortness of breath. denies: Chest pain, Fever Exacerbated by: Movement Relieved by: Denies Similar symptoms previously: Yes Recently seen / treated by doctor: Yes - Related Data Allergies/Adverse Reactions: No Known Allergies Allergy (Verified 12/12/15 11:45) Past Medical History - General Information source: Patient, Relative - Social History Smoking Status: Former Smoker Cigarette use (# per day): No Chew tobacco use (# tins/day): No Frequency of alcohol use: None Drug Abuse: None Lives with: Family Family History: CAD, Malignancy, Other - Old age Patient has suicidal ideation: No Patient has homicidal ideation: No - Past Medical History Cardiac Medical History: Reports: Hx Atrial Fibrillation, Hx Hypertension Pulmonary Medical History: Reports: Hx COPD, Hx Pneumonia Renal/ Medical History: Denies: Hx Peritoneal Dialysis Malignancy Medical History: Reports Hx Colorectal Cancer, Reports Hx Prostate Cancer GI Medical History: Reports: Hx Gastroesophageal Reflux Disease Musculoskeletal Medical History: Reports Hx Arthritis Psychiatric Medical History: Denies: Hx Depression Past Surgical History: Reports: Hx Abdominal Surgery, Hx Colostomy, Hx Herniorrhaphy - Immunizations Hx Diphtheria, Pertussis, Tetanus Vaccination: Yes Hx Pneumococcal Vaccination: 11/11/13 Review of Systems - Review of Systems Constitutional: denies: Chills, Fever EENT: No symptoms reported Cardiovascular: See HPI Respiratory: See HPI Gastrointestinal: No symptoms reported Genitourinary: No symptoms reported Male Genitourinary: No symptoms reported Musculoskeletal: No symptoms reported Skin: No symptoms reported Hematologic/Lymphatic: No symptoms reported Neurological/Psychological: No symptoms reported Physical Exam - Vital signs Vitals: Pulse Ox 98 03/17/18 16:16 Notes: Physical exam: GENERAL: 82-year-old man, alert and oriented x3, appears chronically ill, tachycardic with a heart rate in the 150s, does appear short of breath HEAD: Atraumatic, normocephalic. EYES: Pupils equal round and reactive to light, extraocular movements intact, sclera anicteric, conjunctiva are normal. ENT: TMs normal, nares patent, oropharynx clear without exudates. Moist mucous membranes. NECK: Normal range of motion, supple without obvious mass or JVD. LUNGS: Crackles bilaterally HEART: The cardia, irregularly irregular ABDOMEN: Soft, normoactive bowel sounds. No tenderness to palpation. No guarding, no rebound. No masses appreciated. EXTREMITIES: Normal range of motion, plus edema. No clubbing or cyanosis. NEUROLOGICAL: Cranial nerves II through XII grossly intact. Normal speech, moving all extremities. PSYCH: Normal mood, normal affect. SKIN: Warm, Dry, normal turgor, no rashes or lesions noted. Course - Re-evaluation Re-evalutation: 03/17/18 23:42 She was placed on IV Cardizem drip. - Vital Signs Vital signs: Temp Pulse Resp BP Pulse Ox 97.7 F 52 L 22 H 141/89 H 98 03/17/18 21:21 03/17/18 21:21 03/17/18 21:21 03/17/18 21:21 03/17/18 21:21 - Laboratory Result Diagrams: 03/17/18 15:40 03/17/18 15:40 Laboratory results interpreted by me: 03/17/18 03/17/18 03/17/18 15:40 15:40 15:40 RBC 3.79 L Hgb 11.6 L Hct 35.0 L RDW 15.4 H Seg Neutrophils % 85.1 H Lymphocytes % 10.6 L Chloride 94 L Carbon Dioxide 37 H BUN 30 H Glucose 113 H Creatine Kinase < 20 L NT-Pro-B Natriuret Pep 71088 H - Diagnostic Test Radiology reviewed: Image reviewed, Reports reviewed - You megaly with congestion - EKG Interpretation by Me Rhythm: A.Fib - A. fib with a rapid ventricular rate Critical Care Note - Critical Care Note Total time excluding time spent on procedures (mins): 60 Discharge - Discharge Clinical Impression: A. fib with RVR, CHF, COPD Condition: Stable Disposition: ADMITTED INPATIENT Admitting Provider: David Cervantes Unit Admitted: [facility]
[2018-03-17] MEDS: DILTIAZEM HCL/D5W 125 MG/125 ML RTUINJ IV PRN (18:25)
--- NOTE | 2018-03-17 19:11 | PDOC H&P ---
History of Present Illness Admission Date/PCP: 03/17/18 18:24 [facility] History of Present Illness: SHANEKA SIERRA is a 82 year old male past medical history of A. fib not on anticoagulation, COPD, RAY, on 3 L of home oxygen, was recently admitted here at [facility] for A. fib and pneumonia but left AMA as he was feeling better. Today he is presenting to ED complaining of shortness of breath. His home health nurse who visited him today noticed that he was hypoxic in the 70s and asked him to come to ED. Patient denies any fever , chest pain, nausea, vomiting, diarrhea, constipation or any urinary symptoms. ED he was found to be hypertensive, tachypneic, tachycardic, saturating low 90s on 4 L. Chest x-ray on admission showed fluid overload or CHF superimposed on COPD with bilateral pulmonary edema. He was started on Cardizem drip and hospitalist consulted for admission. Past Medical History Cardiac Medical History: Reports: Atrial Fibrillation, Hypertension Pulmonary Medical History: Reports: Chronic Obstructive Pulmonary Disease (COPD), Pneumonia Malignancy Medical History: Reports: Colorectal Cancer GI Medical History: Reports: Gastroesophageal Reflux Disease Musculoskeltal Medical History: Reports: Arthritis Psychiatric Medical History: Denies: Depression Past Surgical History Past Surgical History: Reports: Colostomy, Herniorrhaphy Social History Smoking Status: Former Smoker Frequency of Alcohol Use: None Hx Recreational Drug Use: No Drugs: None Hx Prescription Drug Abuse: No Family History Family History: CAD, Malignancy, Other - Old age Parental Family History Reviewed: Yes Children Family History Reviewed: Yes Sibling(s) Family History Reviewed.: Yes Medication/Allergy Home Medications: Diltiazem HCl [Diltiazem 24Hr ER] 240 mg PO DAILY 03/13/18 Fluticasone Propionate [Flonase Nasal [place] 50 Mcg/[place] 16 gm] 2 spray NASL DAILY 03/13/18 Hydrochlorothiazide [Hydrodiuril 25 mg Tablet] 25 mg PO DAILY 03/13/18 Meloxicam [Mobic] 7.5 mg PO DAILY 03/13/18 Omeprazole 20 mg PO DAILY 03/13/18 Tamsulosin HCl [Flomax 0.4 mg Cap.sr] 0.4 mg PO DAILY 03/13/18 Guaifenesin [Robitussin Syrup 200 mg/10 ml Ud Cup] 200 mg PO Q4HP PRN #1 udc 03/14/18 Ipratropium/Albuterol Sulfate [Duoneb 3 ml Ampul] 3 ml NEB Q4HP PRN #60 vial.neb 03/14/18 Levofloxacin [Levaquin] 750 mg PO DAILY #7 tablet 03/14/18 Prednisone [Deltasone 20 mg Tablet] 20 mg PO BID #10 tablet 03/14/18 Allergies/Adverse Reactions: No Known Allergies Allergy (Verified 12/12/15 11:45) Review of Systems Review of Systems: HPI. Physical Exam Vital Signs: Temp Pulse Resp BP Pulse Ox 98.6 F 21 H 125/93 H 93 03/17/18 16:29 03/17/18 18:20 03/17/18 18:20 03/17/18 18:20 Intake & Output 03/16/18 03/17/18 03/18/18 06:59 06:59 06:59 Weight 69.2 kg General appearance: PRESENT: mild distress Head exam: PRESENT: atraumatic, normocephalic Respiratory exam: PRESENT: clear to auscultation jacky. ABSENT: rales, rhonchi, wheezes Cardiovascular exam: PRESENT: irregular rhythm, tachycardia. ABSENT: diastolic murmur, rubs, systolic murmur GI/Abdominal exam: PRESENT: normal bowel sounds, soft. ABSENT: distended, guarding, mass, organolmegaly, rebound, tenderness Extremities exam: PRESENT: +2 edema Neurological exam: PRESENT: alert, awake, oriented to person, oriented to place, oriented to time, oriented to situation, CN II-XII grossly intact. ABSENT: motor sensory deficit Skin exam: PRESENT: dry, intact, warm. ABSENT: cyanosis, rash Results Laboratory Results: 03/17/18 15:40 03/17/18 15:40 03/17/18 03/17/18 03/17/18 15:40 15:40 15:40 WBC 7.4 RBC 3.79 L Hgb 11.6 L Hct 35.0 L MCV 92 MCH 30.6 MCHC 33.2 RDW 15.4 H Plt Count 263 Seg Neutrophils % 85.1 H Lymphocytes % 10.6 L Monocytes % 4.2 Eosinophils % 0.0 Basophils % 0.1 Absolute Neutrophils 6.3 Absolute Lymphocytes 0.8 Absolute Monocytes 0.3 Absolute Eosinophils 0.0 Absolute Basophils 0.0 Sodium 138.7 Potassium 4.6 Chloride 94 L Carbon Dioxide 37 H Anion Gap 8 BUN 30 H Creatinine 0.89 Est GFR ( Amer) > 60 Est GFR (Non-Af Amer) > 60 Glucose 113 H Calcium 8.7 Magnesium 2.3 Total Bilirubin 0.3 AST 31 ALT 43 Alkaline Phosphatase 78 Total Protein 6.3 Albumin 3.5 03/17/18 03/17/18 15:40 15:40 Creatine Kinase < 20 L CK-MB (CK-2) 1.54 Troponin I 0.021 Impressions: Chest X-Ray 03/17/18 16:16 IMPRESSION: Suspect fluid overload or congestive failure superimposed on obstructive lung disease with bilateral pulmonary edema and trace pleural effusions. Pneumonia could not entirely be excluded Assessment & Plan - Diagnosis (1) Acute hypoxemic respiratory failure Is this a current diagnosis for this admission?: Yes Plan: Likely due to A. fib coupled with CHF exacerbation and early developing pneumonia. Supplemental oxygen, BiPAP as needed. Duo nebs. IV steroids. Empiric antibiotics. (2) CHF exacerbation Is this a current diagnosis for this admission?: Yes Plan: BNP on 03/12/2018 9680. No recent echo. Monitor volume status. Cardiac diet. Start on IV Lasix guided by vitals. 2D echo. (3) Pneumonia Is this a current diagnosis for this admission?: Yes Plan: As per problem #1. (4) Atrial fibrillation with RVR Is this a current diagnosis for this admission?: Yes Plan: Start on Cardizem drip to switch to p.o. Will discuss anticoagulation. 2D echo. Cardiology consult. (5) COPD with acute exacerbation Is this a current diagnosis for this admission?: Yes Plan: As problem #1. (6) Obstructive sleep apnea Is this a current diagnosis for this admission?: Yes Plan: Nocturnal CPAP. (7) BPH (benign prostatic hyperplasia) Is this a current diagnosis for this admission?: Yes Plan: Restart home meds.
[2018-03-17] MEDS ORDERED: ACETAMINOPHEN 325 MG TABLET PO PRN (19:12)
[2018-03-17] MEDS ORDERED: ONDANSETRON 4 MG TAB.RAPDIS PO PRN (19:12)
[2018-03-17] MEDS ORDERED: MAG HYDROX/AL HYDROX/SIMETH SUSP 30 ML UDCUP PO PRN (19:12)
[2018-03-17] MEDS ORDERED: TIOTROPIUM BROMIDE DPI 5 CAP/KIT (18 MCG/CAP) IH SCH (19:30)
[2018-03-17] MEDS: IPRATROPIUM/ALBUTEROL 0.5-2.5 MG/3 ML AMPUL NEB SCH (20:42)
[2018-03-17 20:58] LABS: APPEARANCE,URINE CLEAR; BILIRUBIN,URINE NEGATIVE (NEGATIVE); COLOR,URINE YELLOW; GLUCOSE, URINE NEGATIVE (NEGATIVE); KETONES,URINE NEGATIVE (NEGATIVE); LEUKOCYTE ESTERASE,URINE NEGATIVE (NEGATIVE); NITRITE,URINE NEGATIVE (NEGATIVE); PROTEIN,URINE NEGATIVE (NEGATIVE); URINE SPECIFIC GRAVITY 1.014; UROBILINOGEN,URINE NEGATIVE mg/dL (<2.0)
[2018-03-17] MEDS: FUROSEMIDE INJ/PF 40 MG/4 ML SDV IV SCH (23:57)
[2018-03-17] MEDS: HEPARIN SOD (PORCINE) 5,000 UNIT/ML 1 ML SYRINGE SUBCUT SCH (23:58)
[2018-03-17] MEDS: METHYLPREDNISOLONE INJ 40 MG/1 ML SDV IV SCH (23:58)
[2018-03-18] MEDS: METHYLPREDNISOLONE INJ 40 MG/1 ML SDV IV SCH ×3 (00:02→21:45)
[2018-03-18] MEDS: AMLODIPINE BESYLATE 10 MG TABLET PO PRN ×2 (01:27→09:36)
[2018-03-18] MEDS ORDERED: LEVOFLOXACIN 500 MG/D5W RTU 500 MG/100 ML RTUPB IV ONE (02:00)
[2018-03-18 03:40] LABS: ARTERIAL BLOOD H2CO3 1.99 mmol/L (1.05-1.35); ARTERIAL BLOOD HCO3 40.4 mmol/L (20-24); ARTERIAL BLOOD PH 7.41 (7.35-7.45); ARTERIAL BLOOD PO2 58.9 mmHg (80-100)
[2018-03-18 03:41] LABS: ARTERIAL BLOOD BASE EXCESS 13.1 mmol/L; ARTERIAL BLOOD O2 SATURATION 89.7 % (94-98); ARTERIAL BLOOD TOTAL CO2 42.5 mmol/L (23-27)
[2018-03-18 03:43] LABS: ARTERIAL BLOOD FIO2 3.5L
[2018-03-18 05:10] LABS: ABSOLUTE LYMPHOCYTES (AUTO) 0.5 10^3/uL (0.5-4.7); ABSOLUTE MONOCYTES (AUTO) 0.3 10^3/uL (0.1-1.4); BASOPHILS % (AUTO) 0.1 % (0-2); HEMATOCRIT 35.4 % (37.9-51.0); HEMOGLOBIN 11.6 g/dL (13.5-17.0); LYMPHOCYTES % (AUTO) 6.1 % (13-45); MEAN CORPUSCULAR HEMOGLOBIN 30.3 pg (27.0-33.4); MEAN CORPUSCULAR HGB CONC 32.8 g/dL (32.0-36.0); MEAN CORPUSCULAR VOLUME 92 fl (80-97); MONOCYTES % (AUTO) 2.9 % (3-13); PLATELET COUNT 263 10^3/uL (150-450); RED BLOOD COUNT 3.83 10^6/uL (4.35-5.55); RED CELL DISTRIBUTION WIDTH 15.2 % (11.5-14.0); SEGMENTED NEUTROPHILS % (AUTO) 90.9 % (42-78); TOTAL CELLS COUNTED % (AUTO) 100 %; WHITE BLOOD COUNT 8.8 10^3/uL (4.0-10.5)
[2018-03-18 05:35] LABS: ALANINE AMINOTRANSFERASE 34 U/L (21-72); ALBUMIN 3.4 g/dL (3.5-5.0); ALKALINE PHOSPHATASE 71 U/L (38-126); ASPARTATE AMINO TRANSFERASE 21 U/L (17-59); BILIRUBIN,DIRECT 0.2 mg/dL (0.0-0.4); BILIRUBIN,TOTAL 0.3 mg/dL (0.2-1.3); BLOOD UREA NITROGEN 28 mg/dL (7-20); CALCIUM 8.6 mg/dL (8.4-10.2); CHLORIDE 93 mmol/L (98-107); GLUCOSE 125 mg/dL (75-110); SODIUM 140.1 mmol/L (137-145); TOTAL PROTEIN 6.1 g/dL (6.3-8.2)
[2018-03-18 05:46] LABS: FREE T3 2.78 pg/mL (2.77-5.27); FREE T4 (FREE THYROXINE) 1.12 ng/dL (0.78-2.19)
[2018-03-18 05:47] LABS: ANION GAP 5 (5-19)
[2018-03-18 05:49] LABS: CARBON DIOXIDE 42 mmol/L (22-30)
[2018-03-18] MEDS: LANSOPRAZOLE 30 MG TAB.RAP.DR PO SCH (05:49)
[2018-03-18] MEDS: HEPARIN SOD (PORCINE) 5,000 UNIT/ML 1 ML SYRINGE SUBCUT SCH ×3 (05:49→21:45)
[2018-03-18 05:59] LABS: THYROID STIMULATING HORMONE 0.88 uIU/mL (0.47-4.68)
[2018-03-18] MEDS: IPRATROPIUM/ALBUTEROL 0.5-2.5 MG/3 ML AMPUL NEB SCH ×4 (07:48→20:04)
[2018-03-18] MEDS: DILTIAZEM HCL/D5W 125 MG/125 ML RTUINJ IV PRN (09:16)
[2018-03-18] MEDS: DOCUSATE SODIUM 100 MG/10 ML UDC PO SCH ×2 (09:35→17:02)
[2018-03-18] MEDS: TIOTROPIUM BROMIDE DPI 5 CAP/KIT (18 MCG/CAP) IH SCH (09:35)
[2018-03-18] MEDS: FUROSEMIDE INJ/PF 40 MG/4 ML SDV IV SCH ×2 (09:37→21:45)
[2018-03-18] MEDS: TAMSULOSIN HCL 0.4 MG CAP.SR.24H PO SCH (09:37)
[2018-03-18] MEDS ORDERED: LORAZEPAM 0.5 MG TABLET PO ONE ×2 (09:54→14:00)
--- NOTE | 2018-03-18 14:55 | PDOC PROGRESS REPORT ---
Subjective Progress Note for:: 03/18/18 Subjective:: No acute events overnight. Patient could not tolerate BiPAP due to anxiety. His shortness of breath and mental status has improved and back to baseline. Enjoying his breakfast in no apparent distress. Accompanied by family. Denying any shortness of breath, fever, chills, nausea, vomiting, diarrhea, constipation or any your urinary symptoms. Reason For Visit: CHF EXACERBATION, PNEUMONIA, COPD EXACERBATION Physical Exam Vital Signs: Temp Pulse Resp BP Pulse Ox 97.9 F 100 20 134/69 H 92 03/18/18 11:44 03/18/18 14:00 03/18/18 12:06 03/18/18 14:00 03/18/18 12:06 Intake & Output 03/17/18 03/18/18 03/19/18 06:59 06:59 06:59 Intake Total 182 35 Output Total 2250 1125 Balance -8 -1090 Weight 67.3 kg General appearance: PRESENT: no acute distress, well-developed, well-nourished Head exam: PRESENT: atraumatic, normocephalic Respiratory exam: PRESENT: clear to auscultation jacky. ABSENT: rales, rhonchi, wheezes Cardiovascular exam: PRESENT: RRR. ABSENT: diastolic murmur, rubs, systolic murmur GI/Abdominal exam: PRESENT: normal bowel sounds, soft. ABSENT: distended, guarding, mass, organolmegaly, rebound, tenderness Extremities exam: PRESENT: pedal edema - trace Results Laboratory Results: 03/18/18 04:55 03/18/18 04:55 03/17/18 03/17/18 03/17/18 15:40 15:40 15:40 WBC 7.4 RBC 3.79 L Hgb 11.6 L Hct 35.0 L MCV 92 MCH 30.6 MCHC 33.2 RDW 15.4 H Plt Count 263 Seg Neutrophils % 85.1 H Lymphocytes % 10.6 L Monocytes % 4.2 Eosinophils % 0.0 Basophils % 0.1 Absolute Neutrophils 6.3 Absolute Lymphocytes 0.8 Absolute Monocytes 0.3 Absolute Eosinophils 0.0 Absolute Basophils 0.0 Carbonic Acid HCO3/H2CO3 Ratio ABG pH ABG pCO2 ABG pO2 ABG HCO3 ABG O2 Saturation ABG Base Excess FiO2 Sodium 138.7 Potassium 4.6 Chloride 94 L Carbon Dioxide 37 H Anion Gap 8 BUN 30 H Creatinine 0.89 Est GFR ( Amer) > 60 Est GFR (Non-Af Amer) > 60 Glucose 113 H Calcium 8.7 Magnesium 2.3 Total Bilirubin 0.3 AST 31 ALT 43 Alkaline Phosphatase 78 Total Protein 6.3 Albumin 3.5 TSH Free T4 Free T3 pg/mL Urine Color Urine Appearance Urine pH Ur Specific [place] Urine Protein Urine Glucose (UA) Urine Ketones Urine Blood Urine Nitrite Ur Leukocyte Esterase Urine WBC (Auto) Urine RBC (Auto) 03/17/18 03/18/18 03/18/18 20:35 03:34 04:55 WBC 8.8 RBC 3.83 L Hgb 11.6 L Hct 35.4 L MCV 92 MCH 30.3 MCHC 32.8 RDW 15.2 H Plt Count 263 Seg Neutrophils % 90.9 H Lymphocytes % 6.1 L Monocytes % 2.9 L Eosinophils % 0.0 Basophils % 0.1 Absolute Neutrophils 8.0 Absolute Lymphocytes 0.5 Absolute Monocytes 0.3 Absolute Eosinophils 0.0 Absolute Basophils 0.0 Carbonic Acid 1.99 H HCO3/H2CO3 Ratio 20:1 ABG pH 7.41 ABG pCO2 66.0 H ABG pO2 58.9 L ABG HCO3 40.4 H ABG O2 Saturation 89.7 L ABG Base Excess 13.1 FiO2 3.5L Sodium Potassium Chloride Carbon Dioxide Anion Gap BUN Creatinine Est GFR ( Amer) Est GFR (Non-Af Amer) Glucose Calcium Magnesium Total Bilirubin AST ALT Alkaline Phosphatase Total Protein Albumin TSH Free T4 Free T3 pg/mL Urine Color YELLOW Urine Appearance CLEAR Urine pH 8.0 Ur Specific [place] 1.014 Urine Protein NEGATIVE Urine Glucose (UA) NEGATIVE Urine Ketones NEGATIVE Urine Blood NEGATIVE Urine Nitrite NEGATIVE Ur Leukocyte Esterase NEGATIVE Urine WBC (Auto) 1 Urine RBC (Auto) 3 03/18/18 03/18/18 04:55 04:55 WBC RBC Hgb Hct MCV MCH MCHC RDW Plt Count Seg Neutrophils % Lymphocytes % Monocytes % Eosinophils % Basophils % Absolute Neutrophils Absolute Lymphocytes Absolute Monocytes Absolute Eosinophils Absolute Basophils Carbonic Acid HCO3/H2CO3 Ratio ABG pH ABG pCO2 ABG pO2 ABG HCO3 ABG O2 Saturation ABG Base Excess FiO2 Sodium 140.1 Potassium 4.0 Chloride 93 L Carbon Dioxide 42 H* Anion Gap 5 BUN 28 H Creatinine 0.96 Est GFR ( Amer) > 60 Est GFR (Non-Af Amer) > 60 Glucose 125 H Calcium 8.6 Magnesium 1.9 Total Bilirubin 0.3 AST 21 ALT 34 Alkaline Phosphatase 71 Total Protein 6.1 L Albumin 3.4 L TSH 0.88 Free T4 1.12 Free T3 pg/mL 2.78 Urine Color Urine Appearance Urine pH Ur Specific [place] Urine Protein Urine Glucose (UA) Urine Ketones Urine Blood Urine Nitrite Ur Leukocyte Esterase Urine WBC (Auto) Urine RBC (Auto) 03/17/18 03/17/18 03/17/18 15:40 15:40 15:40 Creatine Kinase < 20 L CK-MB (CK-2) 1.54 Troponin I 0.021 NT-Pro-B Natriuret Pep 21387 H Impressions: Chest X-Ray 03/17/18 16:16 IMPRESSION: Suspect fluid overload or congestive failure superimposed on obstructive lung disease with bilateral pulmonary edema and trace pleural effusions. Pneumonia could not entirely be excluded Assessment & Plan - Diagnosis (1) Acute hypoxemic respiratory failure Is this a current diagnosis for this admission?: Yes Plan: Improving. Fluid balance -3000 since admission. SBP 122 156, HR 88-102, saturating 92-100% on 4 L Likely due to A. fib coupled with CHF exacerbation and early developing pneumonia. Supplemental oxygen, BiPAP as needed. Duo nebs. IV steroids. Empiric antibiotics. (2) CHF exacerbation Is this a current diagnosis for this admission?: Yes Plan: Improving. Fluid balance -3000 since admission. Weight 67.3 kg down from 69.2 on admission. BNP on 03/12/2018 9680. No recent echo. Monitor volume status. Cardiac diet. Start on IV Lasix guided by vitals. Volume restriction. Pending 2D echo. (3) Pneumonia Is this a current diagnosis for this admission?: Yes Plan: Cultures no growth. Levofloxacin day 2. No leukocytosis. Continue antibiotics for another day. (4) Atrial fibrillation with RVR Is this a current diagnosis for this admission?: Yes Plan: Converted to sinus rhythm. DC Cardizem drip. Continue Cardizem 30 mg p.o. every 6. Thyroid function tests within normal limits. SBP 122 156, HR 88-102, saturating 92-100% on 4 L Not a candidate for anticoagulation due to history of recurrent falls. Pending 2D echo. Cardiology on board. (5) COPD with acute exacerbation Is this a current diagnosis for this admission?: Yes Plan: As problem #1. (6) Obstructive sleep apnea Is this a current diagnosis for this admission?: Yes Plan: Nocturnal CPAP. (7) BPH (benign prostatic hyperplasia) Is this a current diagnosis for this admission?: Yes Plan: Restart home meds.
[2018-03-18] MEDS: DILTIAZEM HCL 30 MG TABLET PO SCH ×2 (17:04→23:39)
[2018-03-18 18:07] LABS: ARTERIAL BLOOD BASE EXCESS 16.4 mmol/L; ARTERIAL BLOOD H2CO3 2.28 mmol/L (1.05-1.35); ARTERIAL BLOOD HCO3 44.8 mmol/L (20-24); ARTERIAL BLOOD O2 SATURATION 90.3 % (94-98); ARTERIAL BLOOD PH 7.39 (7.35-7.45); ARTERIAL BLOOD PO2 61.8 mmHg (80-100); ARTERIAL BLOOD TOTAL CO2 47.2 mmol/L (23-27)
[2018-03-18 18:10] LABS: ARTERIAL BLOOD FIO2 30%
[2018-03-18 18:13] LABS: ARTERIAL BLOOD PCO2 75.6 mmHg (35-45)
--- NOTE | 2018-03-18 20:47 | XCELERA REPORT ---
[address] [address] Transthoracic Echocardiogram Report Name: SHANEKA SIERRA Age: 82 yrs Gender: Male : 1935 Patient Status: Inpatient Patient Location: [address] [place] [address] Study Date: 03/18/2018 11:23 AM Height: 67 in Weight: 152 lb BSA: 1.8 m2 Procedure: A two-dimensional transthoracic echocardiogram with color flow and Doppler was performed. Study Quality: Fair. Reason For Study: CHF, Afib History: CHF, Afib. Ordering Physician: EDE DREW Performed By: Ara Zaldivar Interpretation Summary The left ventricle is normal in size. There is mild concentric left ventricular hypertrophy. The left ventricular ejection fraction is within normal limits. LV EF is 65% Doppler measurements suggest impaired left ventricular relaxation, which is associated with grade I/IV or mild diastolic dysfunction The left ventricular wall motion is normal. The right ventricle is not well visualized secondary to technical limitations The right ventricle is mildly dilated. The right ventricular systolic function is mildly reduced. The right atrium is mildly dilated. The left atrial size is normal. There is no evidence of mitral valve prolapse. There is no mitral valve stenosis. There is a mild amount of mitral regurgitation There is no aortic valvular vegetation. There is no aortic valve stenosis There is no LVOT obstruction. There is a trace amount of aortic regurgitation There is no tricuspid stenosis. There is a moderate amount of tricuspid regurgitation There is mild pulmonary hypertension by echo RVSP 43 to48 mm of Hg , with RA mean of 5 to 10. There is no pulmonic valvular stenosis. There is no pulmonic valvular regurgitation. The aortic root is normal size. The inferior vena cava appeared normal and decreased > 50% with respiration (RAP 5-10 mmHg) There is no pericardial effusion. Large left pleural effusion. MMode/2D Measurements & Calculations RVDd: 3.5 cm LVIDd: 5.3 cm FS: 35.5 % Ao root diam: 3.5 cm IVSd: 1.3 cm LVIDs: 3.4 cm EDV(Teich): 134.0 ml Ao root area: 9.5 cm2 LVPWd: 1.3 cm ESV(Teich): 47.5 ml EF(Teich): 64.5 % Doppler Measurements & Calculations MV E max [place]: MV dec slope: Ao V2 max: AI max [place]: 96.1 cm/sec 468.2 cm/sec2 95.5 cm/sec 186.4 cm/sec MV A max [place]: MV dec time: Ao max PG: AI max P.9 mmHg 105.5 cm/sec 0.21 sec 3.7 mmHg AI dec slope: MV E/A: 0.91 118.4 cm/sec2 AI P1/2t: 461.0 msec LV V1 max PG: PA V2 max: TR max [place]: 2.7 mmHg 85.5 cm/sec 309.3 cm/sec LV V1 max: PA max P.9 mmHg TR max P.1 cm/sec 38.3 mmHg LV dP/dt: 1629 mmHg/s Left Ventricle The left ventricle is normal in size. There is mild concentric left ventricular hypertrophy. The left ventricular ejection fraction is within normal limits. LV EF is 65%. Doppler measurements suggest impaired left ventricular relaxation, which is associated with grade I/IV or mild diastolic dysfunction. The left ventricular wall motion is normal. There is no thrombus. Right Ventricle The right ventricle is mildly dilated. The right ventricle is not well visualized secondary to technical limitations. The right ventricular systolic function is mildly reduced. Atria The right atrium is mildly dilated. The left atrial size is normal. Mitral Valve There is no evidence of mitral valve prolapse. There is no vegetation seen on the mitral valve. There is no mitral valve stenosis. There is a mild amount of mitral regurgitation. Aortic Valve There is no aortic valvular vegetation. There is no aortic valve stenosis. There is no LVOT obstruction. There is a trace amount of aortic regurgitation. Tricuspid Valve There is no tricuspid stenosis. There is a moderate amount of tricuspid regurgitation. There is mild pulmonary hypertension by echo. RVSP 43 to48 mm of Hg , with RA mean of 5 to 10. Pulmonic Valve There is no pulmonic valvular stenosis. There is no pulmonic valvular regurgitation. Great Vessels The aortic root is normal size. The inferior vena cava appeared normal and decreased > 50% with respiration (RAP 5-10 mmHg). Effusions There is no pericardial effusion. Large left pleural effusion. : EDE DREW > Amparo Hicks
--- NOTE | 2018-03-18 21:40 | EKG REPORT ---
SEVERITY:- ABNORMAL ECG - SINUS RHYTHM PROBABLE LEFT ATRIAL ABNORMALITY RBBB AND LAFB LEFT VENTRICULAR HYPERTROPHY ANTEROLATERAL Q WAVES, PROBABLY DUE TO LVH : Confirmed by: Lindsay Avila 18-Mar-2018 21:39:49
[2018-03-18] MEDS: LEVOFLOXACIN 500 MG/D5W RTU 500 MG/100 ML RTUPB IV SCH (21:46)
[2018-03-19] MEDS: DILTIAZEM HCL 30 MG TABLET PO SCH ×3 (06:03→17:29)
[2018-03-19] MEDS: LANSOPRAZOLE 30 MG TAB.RAP.DR PO SCH (06:03)
[2018-03-19] MEDS: HEPARIN SOD (PORCINE) 5,000 UNIT/ML 1 ML SYRINGE SUBCUT SCH ×3 (06:06→22:19)
[2018-03-19] MEDS: IPRATROPIUM/ALBUTEROL 0.5-2.5 MG/3 ML AMPUL NEB SCH ×4 (08:02→20:12)
[2018-03-19] MEDS: DOCUSATE SODIUM 100 MG/10 ML UDC PO SCH (09:50)
[2018-03-19] MEDS: METHYLPREDNISOLONE INJ 40 MG/1 ML SDV IV SCH ×2 (09:51→22:19)
[2018-03-19] MEDS: FUROSEMIDE INJ/PF 40 MG/4 ML SDV IV SCH (09:51)
[2018-03-19] MEDS: TAMSULOSIN HCL 0.4 MG CAP.SR.24H PO SCH (09:51)
[2018-03-19] MEDS: TIOTROPIUM BROMIDE DPI 5 CAP/KIT (18 MCG/CAP) IH SCH (09:52)
[2018-03-19 11:01] LABS: ABSOLUTE LYMPHOCYTES (AUTO) 0.6 10^3/uL (0.5-4.7); ABSOLUTE MONOCYTES (AUTO) 0.6 10^3/uL (0.1-1.4); ABSOLUTE NEUT (AUTO) 7.4 10^3/uL (1.7-8.2); BASOPHILS % (AUTO) 0.1 % (0-2); HEMATOCRIT 35.5 % (37.9-51.0); HEMOGLOBIN 11.8 g/dL (13.5-17.0); LYMPHOCYTES % (AUTO) 7.4 % (13-45); MEAN CORPUSCULAR HEMOGLOBIN 30.4 pg (27.0-33.4); MEAN CORPUSCULAR HGB CONC 33.2 g/dL (32.0-36.0); MEAN CORPUSCULAR VOLUME 92 fl (80-97); MONOCYTES % (AUTO) 7.1 % (3-13); PLATELET COUNT 268 10^3/uL (150-450); RED BLOOD COUNT 3.89 10^6/uL (4.35-5.55); RED CELL DISTRIBUTION WIDTH 15.1 % (11.5-14.0); SEGMENTED NEUTROPHILS % (AUTO) 85.4 % (42-78); TOTAL CELLS COUNTED % (AUTO) 100 %; WHITE BLOOD COUNT 8.7 10^3/uL (4.0-10.5)
[2018-03-19 11:20] LABS: ALANINE AMINOTRANSFERASE 23 U/L (21-72); ALBUMIN 3.3 g/dL (3.5-5.0); ALKALINE PHOSPHATASE 67 U/L (38-126); ASPARTATE AMINO TRANSFERASE 15 U/L (17-59); BILIRUBIN,DIRECT 0.2 mg/dL (0.0-0.4); BILIRUBIN,TOTAL 0.3 mg/dL (0.2-1.3); BLOOD UREA NITROGEN 37 mg/dL (7-20); CALCIUM 8.4 mg/dL (8.4-10.2); CHLORIDE 89 mmol/L (98-107); GLUCOSE 139 mg/dL (75-110); SODIUM 138.3 mmol/L (137-145)
[2018-03-19 11:22] LABS: ARTERIAL BLOOD BASE EXCESS 16.4 mmol/L; ARTERIAL BLOOD FIO2 4L; ARTERIAL BLOOD H2CO3 1.87 mmol/L (1.05-1.35); ARTERIAL BLOOD HCO3 43.1 mmol/L (20-24); ARTERIAL BLOOD O2 SATURATION 92.4 % (94-98); ARTERIAL BLOOD PCO2 62.1 mmHg (35-45); ARTERIAL BLOOD PH 7.46 (7.35-7.45); ARTERIAL BLOOD PO2 62.8 mmHg (80-100)
[2018-03-19 11:31] LABS: ANION GAP 5 (5-19)
[2018-03-19 11:43] LABS: CARBON DIOXIDE 44 mmol/L (22-30)
--- NOTE | 2018-03-19 12:22 | PDOC PROGRESS REPORT ---
Subjective Progress Note for:: 03/19/18 Subjective:: Early last night night patient was lethargic and an ABG was done which showed CO2 of 75.6 after adjusting BiPAP patient improved. Patient has been using BiPAP overnight saturating 96%, 4 L, FiO2 30%. HR 94 - 103 Patient is enjoying his breakfast, looks sleepy, in no acute distress, easily arousable and cooperative with physical examination. Denies any fever, ibrahima rtness of breath, chest pain, fever, chills, nausea, vomiting, diarrhea, constipation. P.o. tolerant, normal bladder and bowel movements. fluid balance -342 Reason For Visit: CHF EXACERBATION, PNEUMONIA, COPD EXACERBATION Physical Exam Vital Signs: Temp Pulse Resp BP Pulse Ox 97.8 F 102 H 12 145/96 H 96 03/19/18 03:55 03/19/18 08:02 03/19/18 08:02 03/19/18 03:55 03/19/18 08:02 Intake & Output 03/18/18 03/19/18 03/20/18 06:59 06:59 06:59 Intake Total 182 152 Output Total 2250 3575 Balance -0837 -2394 Weight 67.3 kg 69.1 kg General appearance: PRESENT: no acute distress, well-developed, well-nourished Head exam: PRESENT: atraumatic, normocephalic Respiratory exam: PRESENT: clear to auscultation jacky. ABSENT: rales, rhonchi, wheezes Cardiovascular exam: PRESENT: RRR. ABSENT: diastolic murmur, rubs, systolic murmur GI/Abdominal exam: PRESENT: normal bowel sounds, soft. ABSENT: distended, guarding, mass, organolmegaly, rebound, tenderness Extremities exam: PRESENT: pedal edema Neurological exam: PRESENT: alert, awake, oriented to person, oriented to place, oriented to time, CN II-XII grossly intact. ABSENT: motor sensory deficit Results Laboratory Results: 03/19/18 10:38 03/19/18 10:38 03/18/18 03/19/18 03/19/18 17:48 10:38 10:38 WBC 8.7 RBC 3.89 L Hgb 11.8 L Hct 35.5 L MCV 92 MCH 30.4 MCHC 33.2 RDW 15.1 H Plt Count 268 Seg Neutrophils % 85.4 H Lymphocytes % 7.4 L Monocytes % 7.1 Eosinophils % 0.0 Basophils % 0.1 Absolute Neutrophils 7.4 Absolute Lymphocytes 0.6 Absolute Monocytes 0.6 Absolute Eosinophils 0.0 Absolute Basophils 0.0 Carbonic Acid 2.28 H HCO3/H2CO3 Ratio 19:1 ABG pH 7.39 ABG pCO2 75.6 H* ABG pO2 61.8 L ABG HCO3 44.8 H ABG O2 Saturation 90.3 L ABG Base Excess 16.4 FiO2 30% Sodium 138.3 Potassium 4.0 Chloride 89 L Carbon Dioxide 44 H* Anion Gap 5 BUN 37 H Creatinine 0.95 Est GFR ( Amer) > 60 Est GFR (Non-Af Amer) > 60 Glucose 139 H Calcium 8.4 Magnesium 2.0 Total Bilirubin 0.3 AST 15 L ALT 23 Alkaline Phosphatase 67 Total Protein 6.0 L Albumin 3.3 L 03/19/18 10:55 WBC RBC Hgb Hct MCV MCH MCHC RDW Plt Count Seg Neutrophils % Lymphocytes % Monocytes % Eosinophils % Basophils % Absolute Neutrophils Absolute Lymphocytes Absolute Monocytes Absolute Eosinophils Absolute Basophils Carbonic Acid 1.87 H HCO3/H2CO3 Ratio 23:1 ABG pH 7.46 H ABG pCO2 62.1 H ABG pO2 62.8 L ABG HCO3 43.1 H ABG O2 Saturation 92.4 L ABG Base Excess 16.4 FiO2 4L Sodium Potassium Chloride Carbon Dioxide Anion Gap BUN Creatinine Est GFR ( Amer) Est GFR (Non-Af Amer) Glucose Calcium Magnesium Total Bilirubin AST ALT Alkaline Phosphatase Total Protein Albumin 03/17/18 03/17/18 03/17/18 15:40 15:40 15:40 Creatine Kinase < 20 L CK-MB (CK-2) 1.54 Troponin I 0.021 NT-Pro-B Natriuret Pep 54826 H Impressions: Chest X-Ray 03/17/18 16:16 IMPRESSION: Suspect fluid overload or congestive failure superimposed on obstructive lung disease with bilateral pulmonary edema and trace pleural effusions. Pneumonia could not entirely be excluded Assessment & Plan - Diagnosis (1) Acute hypoxemic respiratory failure Is this a current diagnosis for this admission?: Yes Plan: No significant changes. fluid balance -3423 SBP 122 156, 96%, 4 L, FiO2 30%. HR 94 - 103 Likely due to A. fib coupled with CHF exacerbation and early developing pneumonia. Supplemental oxygen, BiPAP as needed. Duo nebs. IV steroids. Empiric antibiotics. (2) CHF exacerbation Is this a current diagnosis for this admission?: Yes Plan: Improving. Fluid balance -3423 Weight 67.3 kg down from 69.2 on admission. BNP on 03/12/2018 9680. 2D echo normal ejection fraction. Monitor volume status. Cardiac diet. Switch IV Lasix to p.o. once daily. Volume restriction. (3) Pneumonia Is this a current diagnosis for this admission?: Yes Plan: Cultures no growth. Empiric IV antibiotics day 3 no leukocytosis. (4) Atrial fibrillation with RVR Is this a current diagnosis for this admission?: Yes Plan: Converted to sinus rhythm. DC Cardizem drip. Continue Cardizem 30 mg p.o. every 6. Thyroid function tests within normal limits. Not a candidate for anticoagulation due to history of recurrent falls. 2D echo normal ejection fraction. Cardiology on board. (5) COPD with acute exacerbation Is this a current diagnosis for this admission?: Yes Plan: As problem #1. (6) Obstructive sleep apnea Is this a current diagnosis for this admission?: Yes Plan: Nocturnal CPAP. (7) BPH (benign prostatic hyperplasia) Is this a current diagnosis for this admission?: Yes Plan: Restart home meds.
[2018-03-19] MEDS ORDERED: HYDRALAZINE HCL INJ/PF 20 MG/1 ML SDV IV ONE (17:22)
[2018-03-19] MEDS ORDERED: HYDRALAZINE HCL INJ/PF 20 MG/1 ML SDV ONE (17:27)
[2018-03-19] MEDS: DOCUSATE SODIUM 100 MG CAPSULE PO SCH (17:29)
--- NOTE | 2018-03-19 17:32 | RADIOLOGY REPORT (SQ) ---
EXAM DESCRIPTION: U/S CHEST COMPLETED DATE/TIME: 03/19/2018 5:18 pm REASON FOR STUDY: Lt Pleural Effusion COMPARISON: None. TECHNIQUE: Dynamic and static grayscale images acquired of the localized site of clinical concern an d recorded on PACS. Additional selected color Doppler and spectral images recorded. SITE OF CONCERN: LEFT PLEURAL SPACE LIMITATIONS: None. FINDINGS: Left pleural effusion was noted. Skin was marked for thoracentesis being performed by the attending physician. IMPRESSION: Left pleural effusion was marked on the skin for scheduled thoracentesis. TECHNICAL DOCUMENTATION: JOB ID: [id number] [employer]- All Rights Reserved Reading location - IP/workstation name: [email or web address]
[2018-03-19] MEDS: DILTIAZEM HCL/D5W 125 MG/125 ML RTUINJ IV PRN (19:00)
[2018-03-19] MEDS: LEVOFLOXACIN 500 MG/D5W RTU 500 MG/100 ML RTUPB IV SCH (22:18)
--- NOTE | 2018-03-19 23:18 | Progress Note ---
Provider Note Provider Note: Cardiology PROGRESS NOTES by Dr. Amparo Hicks on 03/19/2018. SUBJECTIVE: The patient again management of atrial fibrillation with rapid ventricular response. He is still drowsy and larger and lethargic, but slightly better on the BiPAP. He denies any chest pain or discomfort. The patient is obviously short of breath. There is no TIA CVA symptoms. Earlier the daughter said that for a short while the patient was very drowsy and was not able to communicate. At present he is much improved. His echocardiogram shows a left pleural effusion. The patient had an ultrasound which shows that the patient does indeed have a left pleural effusion, and plans are made to do a thoracentesis tomorrow. PHYSICAL EXAMINATION: The patient is a frail build. He appears to be chronically ill. He is in mild to moderate respiratory distress. Selected Entries 03/18/18 03/18/18 03/19/18 07:57 15:25 16:05 Temperature 97.3 F 97.9 F Temperature Axillary Oral Source Pulse Rate 91 100 Respiratory 18 18 Rate Blood Pressure 160/83 H 130/68 H Blood Pressure [Left Upper Arm ] Blood Pressure 108 88 Mean Blood Pressure Mean [Left Upper Arm] Blood Pressure Position [Left Upper Arm] BP Location Left Arm Left Arm BP Position Supine Sitting O2 Sat by Pulse 100 94 Oximetry Oxygen Delivery Method ( includes room air) Fraction of 30 Inspired Oxygen (FIO2) Oxygen Flow 5.00 4.00 Rate Oxygen Delivery Nasal Cannula Nasal Cannula Method 03/19/18 16:15 Temperature 98.9 F Temperature Oral Source Pulse Rate 115 H Respiratory 24 H Rate Blood Pressure Blood Pressure 106/63 [Left Upper Arm ] Blood Pressure Mean Blood Pressure 77 Mean [Left Upper Arm] Blood Pressure Supine Position [Left Upper Arm] BP Location BP Position O2 Sat by Pulse 97 Oximetry Oxygen Delivery Nasal Cannula Method ( includes room air) Fraction of Inspired Oxygen (FIO2) Oxygen Flow 4 Rate Oxygen Delivery Method HEAD: Is atraumatic normocephalic. EYES: Pupils equal round regular react to light accommodation. ENT: Is negative. NECK: Is supple. There is no accessory muscles of respiration use. There is no lymphadenopathy. There is no goiter. Carotids are equal there is no bruits. Trachea central. LUNGS: Show absent breath sounds on the left lower lobe and left middle lobe regions of the lung. The rest of the lungs have diminished air entry prolonged expiration. At the sites of diminished air entry in the left lower lobe and left middle lobe there is dullness on percussion. The rest of the areas have hyperresonance. There is rest of the lungs have scattered rhonchi. There is no wheezing. There is a few fine rales of CHF. HEART: S1-S2 is heard. S1 is of variable intensity. There is no S3 gallop. There is no S4 gallop. There is systolic murmur left sternal border and apex there is no rub. ABDOMEN: Is soft. Nontender there is no hepatosplenic megaly bowel sounds were heard. Extremities femorals are di minished there is no femoral bruits there is no pedal edema there is no DVT or cellulitis. There is no calf tenderness. Leg pulses are diminished. There is no cyanosis or clubbing. [employer] the patient is slightly lethargic. But with no focal deficits. PSYCHIATRIC: The patient does not appear to be agitated. 03/18/18 03/19/18 03/19/18 04:55 10:38 10:38 WBC 8.7 RBC 3.89 L Hgb 11.8 L Hct 35.5 L MCV 92 MCH 30.4 MCHC 33.2 RDW 15.1 H Plt Count 268 Seg Neutrophils % 85.4 H Lymphocytes % 7.4 L Monocytes % 7.1 Eosinophils % 0.0 Basophils % 0.1 Absolute Neutrophils 7.4 Absolute Lymphocytes 0.6 Absolute Monocytes 0.6 Absolute Eosinophils 0.0 Absolute Basophils 0.0 Sodium 138.3 Potassium 4.0 Chloride 89 L Anion Gap 5 BUN 37 H Creatinine 0.95 Est GFR (Non-Af Amer) > 60 Glucose 139 H Calcium 8.4 Magnesium 2.0 Total Bilirubin 0.3 Direct Bilirubin 0.2 Neonat Total Bilirubin Not Reportable Neonat Direct Bilirubin Not Reportable Neonat Indirect Bili Not Reportable AST 15 L ALT 23 Alkaline Phosphatase 67 Total Protein 6.0 L Albumin 3.3 L TSH 0.88 Free T4 1.12 Free T3 pg/mL 2.78 03/19/18 10:55 Carbonic Acid 1.87 H HCO3/H2CO3 Ratio 23:1 ABG pH 7.46 H ABG pCO2 62.1 H ABG pO2 62.8 L ABG HCO3 43.1 H ABG Total CO2 45.0 H ABG O2 Saturation 92.4 L ABG Base Excess 16.4 FiO2 4L IMPRESSION/RECOMMENDATION: 1 acute on chronic hypercapnic and hypoxic hypoxic respiratory failure. Continue BiPAP. Continue respiratory treatments. This is multifactorial secondary to acute exacerbation of COPD, pneumonia, atrial fibrillation with rapid ventricular response, and congestive heart failure. 2. Atrial fibrillation with rapid ventricular response: Continue IV Cardizem. Note that the patient is not a candidate for chronic anticoagulation due to mu ltiple falls, and the patient being very frail. 3. Congestive heart failure: This is secondary to atrial fibrillation with rapid ventricular response, and left ventricular diastolic dysfunction. 4. Acute exacerbation of COPD: Continue respiratory treatments, and antibiotics. And BiPAP. And oxygen. 5. Possible pneumonia: Continue antibiotics. 6. Hypertension: Control with blood pressure medication. Can give hydralazine 10 mg IV push as needed. 7. GERD. 8. Depression 9. Prior history of colorectal cancer. 10. Pleural effusion: Recommend thoracentesis for diagnostic and also therapeutic purposes. His medications reviewed. Management plans of the case discussed with other caregiving providers on the case medical decision making is of high complexity. Discussed with the patient and patient's daughter. Note the patient is a DNR. The daughter is his 40 minutes spent on this patient more than 50% time spent in direct patient care. We will follow with you. Surrogate healthcare decision maker.
[2018-03-20] MEDS: DILTIAZEM HCL 30 MG TABLET PO SCH (01:02)
[2018-03-20] MEDS: DILTIAZEM HCL/D5W 125 MG/125 ML RTUINJ IV PRN ×3 (03:00→18:46)
[2018-03-20 05:16] LABS: HEMATOCRIT 34.4 % (37.9-51.0); HEMOGLOBIN 11.4 g/dL (13.5-17.0); MEAN CORPUSCULAR HEMOGLOBIN 29.9 pg (27.0-33.4); MEAN CORPUSCULAR VOLUME 91 fl (80-97); PLATELET COUNT 267 10^3/uL (150-450); RED CELL DISTRIBUTION WIDTH 15.1 % (11.5-14.0)
[2018-03-20 05:39] LABS: ALANINE AMINOTRANSFERASE 22 U/L (21-72); ALBUMIN 3.1 g/dL (3.5-5.0); ALKALINE PHOSPHATASE 61 U/L (38-126); ANION GAP 11 (5-19); ASPARTATE AMINO TRANSFERASE 14 U/L (17-59); BILIRUBIN,DIRECT 0.2 mg/dL (0.0-0.4); BILIRUBIN,TOTAL 0.4 mg/dL (0.2-1.3); BLOOD UREA NITROGEN 51 mg/dL (7-20); CALCIUM 8.2 mg/dL (8.4-10.2); CARBON DIOXIDE 38 mmol/L (22-30); CHLORIDE 88 mmol/L (98-107); GLUCOSE 127 mg/dL (75-110); POTASSIUM 4.1 mmol/L (3.6-5.0); SODIUM 136.5 mmol/L (137-145); TOTAL PROTEIN 5.6 g/dL (6.3-8.2)
[2018-03-20 05:52] LABS: ABSOLUTE LYMPHOCYTES# (MANUAL) 0.4 10^3/uL (0.5-4.7); ABSOLUTE MONOCYTES # (MANUAL) 0.2 10^3/uL (0.1-1.4); ABSOLUTE NEUTROPHILS# (MANUAL) 11.4 10^3/uL (1.7-8.2); ANISOCYTOSIS SLIGHT; BASOPHILS % (MANUAL) 0 % (0-2); EOSINOPHILS % (MANUAL) 0 % (0-6); LYMPHOCYTES % (MANUAL) 3 % (13-45); MONOCYTES % (MANUAL) 2 % (3-13); PLATELET COMMENT ADEQUATE; SEGMENTED NEUTROPHILS % (MAN) 95 % (42-78); TOTAL CELLS COUNTED 100; TOXIC VACUOLATION PRESENT
[2018-03-20] MEDS ORDERED: DILTIAZEM HCL 30 MG TABLET PO SCH (06:00)
[2018-03-20 06:18] LABS: ARTERIAL BLOOD BASE EXCESS 12.2 mmol/L; ARTERIAL BLOOD HCO3 37.8 mmol/L (20-24); ARTERIAL BLOOD O2 SATURATION 95.3 % (94-98); ARTERIAL BLOOD PCO2 53.2 mmHg (35-45); ARTERIAL BLOOD PH 7.47 (7.35-7.45); ARTERIAL BLOOD PO2 73.2 mmHg (80-100); ARTERIAL BLOOD TOTAL CO2 39.4 mmol/L (23-27)
[2018-03-20] MEDS: HEPARIN SOD (PORCINE) 5,000 UNIT/ML 1 ML SYRINGE SUBCUT SCH ×4 (06:19→22:23)
[2018-03-20] MEDS: LANSOPRAZOLE 30 MG TAB.RAP.DR PO SCH (06:19)
[2018-03-20 06:20] LABS: ARTERIAL BLOOD FIO2 30%
[2018-03-20] MEDS: IPRATROPIUM/ALBUTEROL 0.5-2.5 MG/3 ML AMPUL NEB SCH ×4 (07:41→20:14)
--- NOTE | 2018-03-20 09:38 | EKG REPORT ---
SEVERITY:- ABNORMAL ECG - SINUS RHYTHM FIRST DEGREE AV BLOCK RIGHT BUNDLE BRANCH BLOCK EXTENSIVE ANTERIOR INFARCT, AGE INDETERMINATE : Confirmed by: Lindsay Avila 20-Mar-2018 09:37:45
[2018-03-20] MEDS: TAMSULOSIN HCL 0.4 MG CAP.SR.24H PO SCH (09:59)
[2018-03-20] MEDS: METHYLPREDNISOLONE INJ 40 MG/1 ML SDV IV SCH ×2 (09:59→22:24)
[2018-03-20] MEDS: DOCUSATE SODIUM 100 MG CAPSULE PO SCH ×2 (09:59→17:48)
[2018-03-20] MEDS: CEFTRIAXONE 1 GM/D5W RTU 1 GM/50 ML RTUPB IV SCH (09:59)
[2018-03-20] MEDS ORDERED: FUROSEMIDE 20 MG TABLET PO SCH (10:00)
[2018-03-20] MEDS: TIOTROPIUM BROMIDE DPI 5 CAP/KIT (18 MCG/CAP) IH SCH (10:10)
[2018-03-20] MEDS ORDERED: DIGOXIN INJ 0.5 MG/2 ML AMPULE IV PRN (10:55)
[2018-03-20 12:39] LABS: INTERNATIONAL RATION (INR) 1.08; PROTHROMBIN TIME 14.5 SEC (11.4-15.4)
[2018-03-20 12:40] LABS: PARTIAL THROMBOPLASTIN TIME 26.5 SEC (23.5-35.8)
--- NOTE | 2018-03-20 13:32 | PDOC PROGRESS REPORT ---
Subjective Progress Note for:: 03/20/18 Subjective:: No acute events overnight. Patient has been able to use BiPAP overnight. Significant improvement on ABG. Alert oriented x3 not in apparent distress. Denies any fever, chills, nausea, vomiting, diarrhea, constipation or urinary symptoms. Patient is p.o. tolerant having normal bowel and bladder functions. Reason For Visit: CHF EXACERBATION, PNEUMONIA, COPD EXACERBATION Physical Exam Vital Signs: Temp Pulse Resp BP Pulse Ox 98.5 F 107 H 16 135/47 H 97 03/20/18 12:01 03/20/18 13:15 03/20/18 12:01 03/20/18 13:15 03/20/18 12:01 Intake & Output 03/19/18 03/20/18 03/21/18 06:59 06:59 06:59 Intake Total 152 804 58 Output Total 3575 1700 Balance -1966 -376 58 Weight 69.1 kg 65.5 kg General appearance: PRESENT: no acute distress, well-developed, well-nourished Head exam: PRESENT: atraumatic, normocephalic Respiratory exam: PRESENT: clear to auscultation jacky. ABSENT: rales, rhonchi, wheezes Cardiovascular exam: PRESENT: irregular rhythm. ABSENT: diastolic murmur, rubs, systolic murmur GI/Abdominal exam: PRESENT: normal bowel sounds, soft. ABSENT: distended, guarding, mass, organolmegaly, rebound, tenderness Extremities exam: PRESENT: full ROM. ABSENT: calf tenderness, clubbing, pedal edema Neurological exam: PRESENT: alert, awake, oriented to person, oriented to place, oriented to time, oriented to situation, CN II-XII grossly intact. ABSENT: motor sensory deficit Results Laboratory Results: 03/20/18 04:43 03/20/18 04:43 03/20/18 03/20/18 03/20/18 04:43 04:43 05:45 WBC 12.0 H RBC 3.80 L Hgb 11.4 L Hct 34.4 L MCV 91 MCH 29.9 MCHC 33.0 RDW 15.1 H Plt Count 267 Seg Neutrophils % Not Reportable Lymphocytes % Not Reportable Monocytes % Not Reportable Eosinophils % Not Reportable Basophils % Not Reportable Absolute Neutrophils Not Reportable Absolute Lymphocytes Not Reportable Absolute Monocytes Not Reportable Absolute Eosinophils Not Reportable Absolute Basophils Not Reportable Carbonic Acid 1.60 H HCO3/H2CO3 Ratio 23:1 ABG pH 7.47 H ABG pCO2 53.2 H ABG pO2 73.2 L ABG HCO3 37.8 H ABG O2 Saturation 95.3 ABG Base Excess 12.2 FiO2 30% Sodium 136.5 L Potassium 4.1 Chloride 88 L Carbon Dioxide 38 H Anion Gap 11 BUN 51 H Creatinine 0.94 Est GFR ( Amer) > 60 Est GFR (Non-Af Amer) > 60 Glucose 127 H Calcium 8.2 L Total Bilirubin 0.4 AST 14 L ALT 22 Alkaline Phosphatase 61 Total Protein 5.6 L Albumin 3.1 L 03/17/18 03/17/18 03/17/18 15:40 15:40 15:40 Creatine Kinase < 20 L CK-MB (CK-2) 1.54 Troponin I 0.021 NT-Pro-B Natriuret Pep 71217 H Impressions: Chest X-Ray 03/17/18 16:16 IMPRESSION: Suspect fluid overload or congestive failure superimposed on obstructive lung disease with bilateral pulmonary edema and trace pleural effusions. Pneumonia could not entirely be excluded Chest Ultrasound 03/19/18 10:00 IMPRESSION: Left pleural effusion was marked on the skin for scheduled thoracentesis. Assessment & Plan - Diagnosis (1) Acute hypoxemic respiratory failure Is this a current diagnosis for this admission?: Yes Plan: Moderate improvement. 97% on 4 L nasal cannula FiO2 36%. On ABG this morning PO2 73.2 from 62.8, PCO2 53.2 from 62.1. Heart rate 73-107 fluid balance +58. Likely due to A. fib coupled with CHF exacerbation and early developing pneumonia. Supplemental oxygen, BiPAP as needed. Duo nebs. IV steroids. Empiric antibiotics. (2) CHF exacerbation Is this a current diagnosis for this admission?: Yes Plan: Moderate improvement. Fluid balance 58 Weight 65.5kg down from 69.2 on admission. BNP on 03/12/2018 9680. 2D echo normal ejection fraction. Monitor volume status. Cardiac diet. P.o. Lasix daily. (3) Pneumonia Is this a current diagnosis for this admission?: Yes Plan: Cultures no growth. Empiric IV antibiotics day 4 no leukocytosis. (4) Atrial fibrillation with RVR Is this a current diagnosis for this admission?: Yes Plan: Rate controlled. Off Cardizem drip for since yesterday. Started on digitalis by cardiology. P.o. Cardizem has been stopped. Thyroid function tests within normal limits. Not a candidate for anticoagulation due to history of recurrent falls. 2D echo normal ejection fraction. Cardiology on board. (5) COPD with acute exacerbation Is this a current diagnosis for this admission?: Yes Plan: As problem #1. (6) Obstructive sleep apnea Is this a current diagnosis for this admission?: Yes Plan: Nocturnal CPAP. Pulmonary has been consulted. (7) BPH (benign prostatic hyperplasia) Is this a current diagnosis for this admission?: Yes Plan: Restart home meds. (8) Pleural effusion on left Is this a current diagnosis for this admission?: Yes Plan: Likely due to acute CHF Exacerbation. Thoracentesis today by radiology. Will send for fluid analysis to rule out any malignancy.
[2018-03-20 15:14] LABS: TOTAL PROTEIN 5.6 g/dL (6.3-8.2)
--- NOTE | 2018-03-20 15:56 | RADIOLOGY REPORT (SQ) ---
EXAM DESCRIPTION: CHEST SINGLE VIEW COMPLETED DATE/TIME: 03/20/2018 3:40 pm REASON FOR STUDY: post thora Immediate post left thoracentesis film COMPARISON: 03/17/2018 EXAM PARAMETERS: NUMBER OF VIEWS: One view. TECHNIQUE: Single frontal radiographic view of the chest acquired. RADIATION DOSE: NA LIMITATIONS: None. FINDINGS: LUNGS AND PLEURA: Post left thoracentesis. No left pneumothorax. Resolved left pleural e ffusion. Minimal left basilar atelectasis or scarring. Right lung well inflated and clear. No gross pleural effusion. MEDIASTINUM AND HILAR STRUCTURES: No masses. Contour normal. HEART AND VASCULAR STRUCTURES: No cardiomegaly BONES: No acute findings. HARDWARE: None in the chest. OTHER: No other significant finding. IMPRESSION: No pneumothorax post left thoracentesis. Minimal persistent left retrocardiac atelectasis. TECHNICAL DOCUMENTATION: JOB ID: [id number] [employer]- All Rights Reserved Reading location - IP/workstation name: [email or web address]
--- NOTE | 2018-03-20 16:24 | RADIOLOGY REPORT (SQ) ---
EXAM DESCRIPTION: U/S THORACENTESIS WITH IMAGING COMPLETED DATE/TIME: 03/20/2018 4:15 pm REASON FOR STUDY: Pleural Effusion COMPARISON: 03/19/2018 chest ultrasound LIMITATIONS: None. PROCEDURE: Procedure, risks, benefit, and alternative explained to patient who then gave written con sent. The posterior left chest wall was marked using ultrasound guidance. A time-out was called for correct marking verification. Chest prepped and draped using sterile technique. Local anesthesia ac hieved using 4.5 ml of 1% lidocaine injection. A 6fr Safe-T- Centesis set was introduced into the le ft pleural space. Fluid was aspirated. The catheter was removed and the entry site was covered with sterile bandage. No immediate complications noted. Post procedure chest x-ray, dictated separately, demonstrated no residual left pleural effusion, no pneumothorax. Images acquired during the procedure were stored on PACS. FINDINGS: ENTRY SITE: Left posterior chest FLUID VOLUME: 350 mL FLUID ANALYSIS: Cloudy yellow fluid OTHER: Fluid sent to the lab for testing. IMPRESSION: SUCCESSFUL THORACENTESIS USING ULTRASOUND GUIDANCE. COMMENT: Patient medication list reviewed: Yes- Quality ID# [id number]:Eligible professional attests to doc umenting in the medical record they obtained, updated, or reviewed the patient's current medications. TECHNICAL DOCUMENTATION: JOB ID: [id number] [employer] All Rights Reserved Reading location - IP/workstation name: [email or web address]
[2018-03-20 17:04] LABS: FLUID TYPE PLEURAL
[2018-03-20 17:05] LABS: FLUID APPEARANCE HAZY; FLUID COLOR STRAW; FLUID VISCOSITY LIQUID
[2018-03-20 17:10] LABS: FLUID SOURCE LUNG
[2018-03-20] MEDS: FLUTICASONE NASAL SPRAY 50 MCG/SPRY 120 SPRAY/16 GM NASL SCH (17:52)
[2018-03-20] MEDS ORDERED: METOPROLOL TARTRATE 25 MG TABLET PO ONE (18:00)
--- NOTE | 2018-03-20 18:05 | RADIOLOGY REPORT (SQ) ---
EXAM DESCRIPTION: CHEST SINGLE VIEW COMPLETED DATE/TIME: 03/20/2018 5:59 pm REASON FOR STUDY: POST THORA 2HOUR COMPARISON: 03/20/2018 1533 hours EXAM PARAMETERS: NUMBER OF VIEWS: One view. TECHNIQUE: Single frontal radiographic view of the chest acquired. RADIATION DOSE: NA LIMITATIONS: None. FINDINGS: LUNGS AND PLEURA: Left basilar opacity unchanged. No pneumothorax. MEDIASTINUM AND HILAR STRUCTURES: No masses. Contour normal. HEART AND VASCULAR STRUCTURES: Heart normal in size. Normal vasculature. BONES: No acute findings. HARDWARE: None in the chest. OTHER: No other significant finding. IMPRESSION: No pneumothorax. TECHNICAL DOCUMENTATION: JOB ID: [id number] [employer]- All Rights Reserved Reading location - IP/workstation name: [email or web address]
[2018-03-21 05:01] LABS: HEMATOCRIT 33.2 % (37.9-51.0); HEMOGLOBIN 11.1 g/dL (13.5-17.0); MEAN CORPUSCULAR HEMOGLOBIN 30.3 pg (27.0-33.4); MEAN CORPUSCULAR HGB CONC 33.5 g/dL (32.0-36.0); MEAN CORPUSCULAR VOLUME 90 fl (80-97); PLATELET COUNT 256 10^3/uL (150-450); RED BLOOD COUNT 3.67 10^6/uL (4.35-5.55); RED CELL DISTRIBUTION WIDTH 15.1 % (11.5-14.0); WHITE BLOOD COUNT 9.7 10^3/uL (4.0-10.5)
[2018-03-21 05:31] LABS: ABSOLUTE LYMPHOCYTES# (MANUAL) 0.7 10^3/uL (0.5-4.7); ABSOLUTE MONOCYTES # (MANUAL) 0.7 10^3/uL (0.1-1.4); ABSOLUTE NEUTROPHILS# (MANUAL) 8.3 10^3/uL (1.7-8.2); BASOPHILS % (MANUAL) 0 % (0-2); EOSINOPHILS % (MANUAL) 0 % (0-6); LYMPHOCYTES % (MANUAL) 7 % (13-45); MONOCYTES % (MANUAL) 7 % (3-13); SEGMENTED NEUTROPHILS % (MAN) 86 % (42-78); TOTAL CELLS COUNTED 100
[2018-03-21 05:32] LABS: ANISOCYTOSIS SLIGHT; OVALOCYTES 1+; PLATELET COMMENT ADEQUATE; POIKILOCYTOSIS 1+
[2018-03-21 05:56] LABS: ALANINE AMINOTRANSFERASE 24 U/L (21-72); ALBUMIN 3.1 g/dL (3.5-5.0); ALKALINE PHOSPHATASE 58 U/L (38-126); ASPARTATE AMINO TRANSFERASE 15 U/L (17-59); BILIRUBIN,DIRECT 0.2 mg/dL (0.0-0.4); BILIRUBIN,TOTAL 0.4 mg/dL (0.2-1.3); BLOOD UREA NITROGEN 52 mg/dL (7-20); CALCIUM 8.1 mg/dL (8.4-10.2); CHLORIDE 89 mmol/L (98-107); GLUCOSE 119 mg/dL (75-110); POTASSIUM 3.9 mmol/L (3.6-5.0); SODIUM 137.4 mmol/L (137-145); TOTAL PROTEIN 5.6 g/dL (6.3-8.2)
[2018-03-21 05:58] LABS: ANION GAP 7 (5-19)
[2018-03-21 06:00] LABS: CARBON DIOXIDE 41 mmol/L (22-30)
[2018-03-21] MEDS: METOPROLOL TARTRATE 50 MG TABLET PO SCH ×2 (06:38→17:18)
[2018-03-21] MEDS: LANSOPRAZOLE 30 MG TAB.RAP.DR PO SCH (06:40)
[2018-03-21] MEDS: HEPARIN SOD (PORCINE) 5,000 UNIT/ML 1 ML SYRINGE SUBCUT SCH ×3 (06:40→21:43)
[2018-03-21] MEDS: IPRATROPIUM/ALBUTEROL 0.5-2.5 MG/3 ML AMPUL NEB SCH ×4 (07:52→20:41)
[2018-03-21] MEDS: DOCUSATE SODIUM 100 MG CAPSULE PO SCH ×2 (09:01→17:06)
[2018-03-21] MEDS: TAMSULOSIN HCL 0.4 MG CAP.SR.24H PO SCH (09:01)
[2018-03-21] MEDS: METHYLPREDNISOLONE INJ 40 MG/1 ML SDV IV SCH ×2 (09:01→21:43)
[2018-03-21] MEDS: CEFTRIAXONE 1 GM/D5W RTU 1 GM/50 ML RTUPB IV SCH (09:01)
[2018-03-21] MEDS: TIOTROPIUM BROMIDE DPI 5 CAP/KIT (18 MCG/CAP) IH SCH (09:02)
[2018-03-21] MEDS: FLUTICASONE NASAL SPRAY 50 MCG/SPRY 120 SPRAY/16 GM NASL SCH (09:02)
[2018-03-21 09:05] LABS: INTERNATIONAL RATION (INR) 1.06; PARTIAL THROMBOPLASTIN TIME 28.3 SEC (23.5-35.8); PROTHROMBIN TIME 14.3 SEC (11.4-15.4)
--- NOTE | 2018-03-21 18:23 | PDOC PROGRESS REPORT ---
Subjective Progress Note for:: 03/21/18 Subjective:: No acute events overnight. Patient has been able to use BiPAP overnight. Significant improvement on ABG. Alert oriented x3 not in apparent distress. Denies any fever, chills, nausea, vomiting, diarrhea, constipation or urinary symptoms. Patient is p.o. tolerant having normal bowel and bladder functions. Reason For Visit: CHF EXACERBATION, PNEUMONIA, COPD EXACERBATION Physical Exam Vital Signs: Temp Pulse Resp BP Pulse Ox 97.8 F 84 20 126/57 H 96 03/21/18 16:45 03/21/18 17:00 03/21/18 16:45 03/21/18 17:00 03/21/18 16:45 Intake & Output 03/20/18 03/21/18 03/22/18 06:59 06:59 06:59 Intake Total 804 1447 408 Output Total 1700 1300 750 Balance -896 147 -342 Weight 65.5 kg 65.8 kg General appearance: PRESENT: no acute distress, well-developed, well-nourished Head exam: PRESENT: atraumatic, normocephalic Respiratory exam: PRESENT: clear to auscultation jacky, crackles - RLL. ABSENT: rales, rhonchi, wheezes GI/Abdominal exam: PRESENT: normal bowel sounds, soft. ABSENT: distended, guarding, mass, organolmegaly, rebound, tenderness Extremities exam: PRESENT: full ROM. ABSENT: calf tenderness, clubbing, pedal edema Neurological exam: PRESENT: alert, awake, oriented to person, oriented to place, oriented to time, oriented to situation, CN II-XII grossly intact. ABSENT: motor sensory deficit Results Laboratory Results: 03/21/18 04:20 03/21/18 04:20 03/21/18 03/21/18 04:20 04:20 WBC 9.7 RBC 3.67 L Hgb 11.1 L Hct 33.2 L MCV 90 MCH 30.3 MCHC 33.5 RDW 15.1 H Plt Count 256 Seg Neutrophils % Not Reportable Lymphocytes % Not Reportable Monocytes % Not Reportable Eosinophils % Not Reportable Basophils % Not Reportable Absolute Neutrophils Not Reportable Absolute Lymphocytes Not Reportable Absolute Monocytes Not Reportable Absolute Eosinophils Not Reportable Absolute Basophils Not Reportable Sodium 137.4 Potassium 3.9 Chloride 89 L Carbon Dioxide 41 H* Anion Gap 7 BUN 52 H Creatinine 0.91 Est GFR ( Amer) > 60 Est GFR (Non-Af Amer) > 60 Glucose 119 H Calcium 8.1 L Magnesium 2.4 H Total Bilirubin 0.4 AST 15 L ALT 24 Alkaline Phosphatase 58 Total Protein 5.6 L Albumin 3.1 L 03/17/18 03/17/18 03/17/18 15:40 15:40 15:40 Creatine Kinase < 20 L CK-MB (CK-2) 1.54 Troponin I 0.021 NT-Pro-B Natriuret Pep 35644 H Impressions: Chest Ultrasound 03/19/18 10:00 IMPRESSION: Left pleural effusion was marked on the skin for scheduled thoracentesis. Chest X-Ray 03/20/18 00:00 IMPRESSION: No pneumothorax. Thoracentesis Ultrasound 03/20/18 00:00 IMPRESSION: SUCCESSFUL THORACENTESIS USING ULTRASOUND GUIDANCE. Assessment & Plan - Diagnosis (1) Acute hypoxemic respiratory failure Is this a current diagnosis for this admission?: Yes Plan: Moderate improvement. 97% on 4 L nasal cannula FiO2 36%. On ABG this morning PO2 73.2 from 62.8, PCO2 53.2 from 62.1. Heart rate 73-107 fluid balance +58. Likely due to A. fib coupled with CHF exacerbation and early developing pneumonia. Supplemental oxygen, BiPAP as needed. Duo nebs. IV steroids. Empiric antibiotics. (2) CHF exacerbation Is this a current diagnosis for this admission?: Yes Plan: Moderate improvement. Fluid balance 58 Weight 65.5kg down from 69.2 on admission. BNP on 03/12/2018 9680. 2D echo normal ejection fraction. Monitor volume status. Cardiac diet. P.o. Lasix daily. (3) Pneumonia Is this a current diagnosis for this admission?: Yes Plan: Cultures no growth. Empiric IV antibiotics day 5 no leukocytosis. (4) Atrial fibrillation with RVR Is this a current diagnosis for this admission?: Yes Plan: Not controlled. Patient had to be restarted on Cardizem drip. Thyroid function tests within normal limits. Not a candidate for anticoagulation due to history of recurrent falls. 2D echo normal ejection fraction. Cardiology on board. (5) COPD with acute exacerbation Is this a current diagnosis for this admission?: Yes Plan: As problem #1. (6) Obstructive sleep apnea Is this a current diagnosis for this admission?: Yes Plan: Nocturnal CPAP. Pulmonary has been consulted. (7) BPH (benign prostatic hyperplasia) Is this a current diagnosis for this admission?: Yes Plan: Restart home meds. (8) Pleural effusion on left Is this a current diagnosis for this admission?: Yes Plan: Likely due to acute CHF Exacerbation. Status post thoracentesis by radiology on 03/20/2018. Fluids negative for infection.
[2018-03-21] MEDS: DILTIAZEM HCL/D5W 125 MG/125 ML RTUINJ IV PRN (19:40)
[2018-03-22 05:20] LABS: HEMATOCRIT 35.1 % (37.9-51.0); HEMOGLOBIN 11.7 g/dL (13.5-17.0); MEAN CORPUSCULAR HEMOGLOBIN 30.4 pg (27.0-33.4); MEAN CORPUSCULAR HGB CONC 33.2 g/dL (32.0-36.0); MEAN CORPUSCULAR VOLUME 92 fl (80-97); PLATELET COUNT 245 10^3/uL (150-450); RED BLOOD COUNT 3.83 10^6/uL (4.35-5.55); RED CELL DISTRIBUTION WIDTH 15.1 % (11.5-14.0); WHITE BLOOD COUNT 10.9 10^3/uL (4.0-10.5)
[2018-03-22 05:49] LABS: ALANINE AMINOTRANSFERASE 30 U/L (21-72); ALKALINE PHOSPHATASE 61 U/L (38-126); ASPARTATE AMINO TRANSFERASE 15 U/L (17-59); BILIRUBIN,DIRECT 0.1 mg/dL (0.0-0.4); BILIRUBIN,TOTAL 0.3 mg/dL (0.2-1.3); BLOOD UREA NITROGEN 44 mg/dL (7-20); CALCIUM 8.3 mg/dL (8.4-10.2); GLUCOSE 132 mg/dL (75-110); POTASSIUM 4.4 mmol/L (3.6-5.0); TOTAL PROTEIN 5.5 g/dL (6.3-8.2)
[2018-03-22 06:13] LABS: CHLORIDE 95 mmol/L (98-107); SODIUM 138.9 mmol/L (137-145)
[2018-03-22 06:15] LABS: ANION GAP 3 (5-19)
[2018-03-22 06:16] LABS: CARBON DIOXIDE 41 mmol/L (22-30)
[2018-03-22 06:30] LABS: ABSOLUTE LYMPHOCYTES# (MANUAL) 0.4 10^3/uL (0.5-4.7); ABSOLUTE MONOCYTES # (MANUAL) 0.2 10^3/uL (0.1-1.4); ABSOLUTE NEUTROPHILS# (MANUAL) 10.2 10^3/uL (1.7-8.2); BASOPHILS % (MANUAL) 0 % (0-2); EOSINOPHILS % (MANUAL) 0 % (0-6); LYMPHOCYTES % (MANUAL) 4 % (13-45); MONOCYTES % (MANUAL) 2 % (3-13); SEGMENTED NEUTROPHILS % (MAN) 94 % (42-78); TOTAL CELLS COUNTED 100; TOXIC GRANULATION SLIGHT; TOXIC VACUOLATION PRESENT
[2018-03-22 06:32] LABS: ANISOCYTOSIS SLIGHT; OVALOCYTES SLIGHT; PLATELET COMMENT ADEQUATE; POIKILOCYTOSIS SLIGHT; SCHISTOCYTES SLIGHT; TEAR DROP CELLS SLIGHT
[2018-03-22] MEDS: METOPROLOL TARTRATE 50 MG TABLET PO SCH ×2 (07:11→17:19)
[2018-03-22] MEDS: LANSOPRAZOLE 30 MG TAB.RAP.DR PO SCH (07:11)
[2018-03-22] MEDS: HEPARIN SOD (PORCINE) 5,000 UNIT/ML 1 ML SYRINGE SUBCUT SCH ×3 (07:12→22:03)
[2018-03-22 07:34] LABS: ARTERIAL BLOOD BASE EXCESS 11.5 mmol/L; ARTERIAL BLOOD H2CO3 2.12 mmol/L (1.05-1.35); ARTERIAL BLOOD HCO3 39.5 mmol/L (20-24); ARTERIAL BLOOD O2 SATURATION 92.4 % (94-98); ARTERIAL BLOOD PH 7.37 (7.35-7.45); ARTERIAL BLOOD PO2 68.3 mmHg (80-100); ARTERIAL BLOOD TOTAL CO2 41.7 mmol/L (23-27)
[2018-03-22 07:35] LABS: ARTERIAL BLOOD FIO2 4L
[2018-03-22 07:36] LABS: ARTERIAL BLOOD PCO2 70.3 mmHg (35-45)
[2018-03-22] MEDS: IPRATROPIUM/ALBUTEROL 0.5-2.5 MG/3 ML AMPUL NEB SCH ×4 (09:10→20:23)
[2018-03-22] MEDS: DOCUSATE SODIUM 100 MG CAPSULE PO SCH ×2 (09:15→17:19)
[2018-03-22] MEDS: TAMSULOSIN HCL 0.4 MG CAP.SR.24H PO SCH (09:16)
[2018-03-22] MEDS: CEFTRIAXONE 1 GM/D5W RTU 1 GM/50 ML RTUPB IV SCH (09:16)
[2018-03-22] MEDS: METHYLPREDNISOLONE INJ 40 MG/1 ML SDV IV SCH ×2 (09:16→22:12)
[2018-03-22] MEDS: TIOTROPIUM BROMIDE DPI 5 CAP/KIT (18 MCG/CAP) IH SCH (09:18)
[2018-03-22] MEDS: FLUTICASONE NASAL SPRAY 50 MCG/SPRY 120 SPRAY/16 GM NASL SCH (09:18)
--- NOTE | 2018-03-22 12:36 | RADIOLOGY REPORT (SQ) ---
EXAM DESCRIPTION: CHEST SINGLE VIEW COMPLETED DATE/TIME: 03/22/2018 12:22 pm REASON FOR STUDY: Left pleural effusion COMPARISON: 03/20/2018 TECHNIQUE: Single frontal radiographic view of the chest acquired. NUMBER OF VIEWS: One view. LIMITATIONS: RPO positioning FINDINGS: LUNGS AND PLEURA: No pneumothorax. No consolidation or pleural effusion. Similar mild bas ilar and apical scarring. MEDIASTINUM AND HILAR STRUCTURES: Stable. HEART AND VASCULAR STRUCTURES: Stable. BONES: No acute findings. HARDWARE: None in the chest. OTHER: No other significant finding. IMPRESSION: NO ACUTE FINDINGS. TECHNICAL DOCUMENTATION: JOB ID: [id number] [email or web address]- All Rights Reserved Reading location - IP/workstation name: [email or web address]
--- NOTE | 2018-03-22 14:20 | PDOC PROGRESS REPORT ---
Subjective Progress Note for:: 03/22/18 Subjective:: Patient has been refusing BiPAP overnight. Otherwise no acute events. ABG this morning positive for CO2 of 70 up from 53.2, pH 7.37, PO2 68.3. Patient has been counseled about the need to use BiPAP however he stating that he does not want BiPAP and wants to go home with home hospice. Family who is accompanying him have not been able to convince him to wear BiPAP. Family is in agreement with his plans. Denies any chest pain, shortness of breath, nausea, vomiting, diarrhea, constipation, urinary symptoms. On my encounter patient is sitting in bed off of nasal cannula and BiPAP alert and oriented in mild respiratory distress, stating that he does not want to be dependent on BiPAP. My advice about the need of BiPAP did not change his mind. Reason For Visit: CHF EXACERBATION, PNEUMONIA, COPD EXACERBATION Physical Exam Vital Signs: Temp Pulse Resp BP Pulse Ox 97.9 F 65 20 154/64 H 96 03/22/18 12:10 03/22/18 12:10 03/22/18 12:10 03/22/18 12:10 03/22/18 12:10 Intake & Output 03/21/18 03/22/18 03/23/18 06:59 06:59 06:59 Intake Total 1447 533 50 Output Total 1300 1300 350 Balance 147 -857 -300 Weight 65.8 kg 65.8 kg General appearance: PRESENT: mild distress Head exam: PRESENT: atraumatic, normocephalic Respiratory exam: PRESENT: decreased breath sounds, prolonged expiratory phas. ABSENT: rales, rhonchi, wheezes Cardiovascular exam: PRESENT: irregular rhythm. ABSENT: diastolic murmur, rubs, systolic murmur GI/Abdominal exam: PRESENT: normal bowel sounds, soft. ABSENT: distended, g uarding, mass, organolmegaly, rebound, tenderness Extremities exam: PRESENT: full ROM. ABSENT: calf tenderness, clubbing, pedal edema Neurological exam: PRESENT: alert, awake, oriented to person, oriented to place, oriented to time, oriented to situation, CN II-XII grossly intact. ABSENT: motor sensory deficit Results Laboratory Results: 03/22/18 04:53 03/22/18 04:53 03/22/18 03/22/18 03/22/18 04:53 04:53 07:00 WBC 10.9 H RBC 3.83 L Hgb 11.7 L Hct 35.1 L MCV 92 MCH 30.4 MCHC 33.2 RDW 15.1 H Plt Count 245 Seg Neutrophils % Not Reportable Lymphocytes % Not Reportable Monocytes % Not Reportable Eosinophils % Not Reportable Basophils % Not Reportable Absolute Neutrophils Not Reportable Absolute Lymphocytes Not Reportable Absolute Monocytes Not Reportable Absolute Eosinophils Not Reportable Absolute Basophils Not Reportable Carbonic Acid 2.12 H HCO3/H2CO3 Ratio 18:1 ABG pH 7.37 ABG pCO2 70.3 H* ABG pO2 68.3 L ABG HCO3 39.5 H ABG O2 Saturation 92.4 L ABG Base Excess 11.5 FiO2 4L Sodium 138.9 Potassium 4.4 Chloride 95 L Carbon Dioxide 41 H* Anion Gap 3 L BUN 44 H Creatinine 0.85 Est GFR ( Amer) > 60 Est GFR (Non-Af Amer) > 60 Glucose 132 H Calcium 8.3 L Magnesium 2.4 H Total Bilirubin 0.3 AST 15 L ALT 30 Alkaline Phosphatase 61 Total Protein 5.5 L Albumin 3.0 L 03/17/18 03/17/18 03/17/18 15:40 15:40 15:40 Creatine Kinase < 20 L CK-MB (CK-2) 1.54 Troponin I 0.021 NT-Pro-B Natriuret Pep 31411 H Impressions: Chest Ultrasound 03/19/18 10:00 IMPRESSION: Left pleural effusion was marked on the skin for scheduled thoracentesis. Thoracentesis Ultrasound 03/20/18 00:00 IMPRESSION: SUCCESSFUL THORACENTESIS USING ULTRASOUND GUIDANCE. Chest X-Ray 03/22/18 00:00 IMPRESSION: NO ACUTE FINDINGS. Assessment & Plan - Diagnosis (1) Acute hypoxemic respiratory failure Is this a current diagnosis for this admission?: Yes Plan: Worsening. Patient refusing to use BiPAP. ABG from this morning PCO2 of 70, PO2 of 62 pH 7.37 Likely due to A. fib coupled with CHF exacerbation and early developing p neumonia. Supplemental oxygen, BiPAP as needed. Duo nebs. IV steroids. Empiric antibiotics. (2) CHF exacerbation Is this a current diagnosis for this admission?: Yes Plan: Fluid balance -300 Weight 65.5kg down from 69.2 on admission. BNP on 03/12/2018 9680. 2D echo normal ejection fraction. Cardiac diet. Monitor volume status. (3) Pneumonia Is this a current diagnosis for this admission?: Yes Plan: Cultures no growth. Empiric IV antibiotics day 6 no leukocytosis. (4) Atrial fibrillation with RVR Is this a current diagnosis for this admission?: Yes Plan: Not controlled. Patient had to be restarted on Cardizem drip. Thyroid function tests within normal limits. Not a candidate for anticoagulation due to history of recurrent falls. 2D echo normal ejection fraction. Cardiology on board. (5) COPD with acute exacerbation Is this a current diagnosis for this admission?: Yes Plan: As problem #1. (6) Obstructive sleep apnea Is this a current diagnosis for this admission?: Yes Plan: Patient refusing BiPAP. And has a CPAP at home which she has refused to wear in the past. Pulmonary has been consulted. (7) BPH (benign prostatic hyperplasia) Is this a current diagnosis for this admission?: Yes Plan: Restart home meds. (8) Pleural effusion on left Is this a current diagnosis for this admission?: Yes Plan: Likely due to acute CHF exacerbation. Status post thoracentesis by radiology on 03/20/2018. Fluids negative for infection. Pending LDH, protein and cytology
[2018-03-22] MEDS: DILTIAZEM HCL/D5W 125 MG/125 ML RTUINJ IV PRN (17:25)
--- NOTE | 2018-03-22 23:14 | Progress Note ---
Provider Note Provider Note: CARDIOLOGY PROGRESS NOTE by Dr. Amparo Hicks on 03/22/2018. OBJECTIVE: The patient seems to be slightly more alert, although the daughter states that he was very confused last night. His ABGs continued to show the patient has chronic hypoxic and hypercapnic respiratory failure. Since after the thoracentesis, there is been no reaccumulation of fluid, and the patient now is in sinus rhythm. He denies any chest pain or discomfort. He has orthopnea but no PND. There is no leg edema. There is no TIA CVA symptoms. There is no ventricular arrhythmias on the monitor. There is no recurrence of atrial fibrillation. PHYSICAL EXAMINATION: The patient appears to be chronically ill and appears to be malnourished. He is in no acute distress at present. Selected Entries 03/22/18 03/22/18 15:33 15:57 Temperature 97.3 F Temperature Oral Source Pulse Rate 69 Respiratory 18 Rate Blood Pressure 155/64 H Blood Pressure 94 Mean BP Location Left Arm BP Position Sitting O2 Sat by Pulse 95 Oximetry Fraction of 36 Inspired Oxygen (FIO2) Oxygen Flow 4 Rate Oxygen Delivery Nasal Cannula Method HEAD: Is atraumatic normocephalic. EYES: Pupils equal round regular react to light accommodation. ENT: Is negative. NECK: Is supple. There is no accessory muscles of respiration use. There is no lymphadenopathy. There is no goiter. Carotids are equal there is no bruits. Trachea central. LUNGS: Show absent breath sounds on the left lower lobe and left middle lobe regions of the lung. The rest of the lungs have diminished air entry prolonged expiration. At the sites of diminished air entry in the left lower lobe and left middle lobe there is dullness on percussion. The rest of the areas have hyperresonance. There is rest of the lungs have scattered rhonchi. There is no wheezing. There is a few fine rales of CHF. HEART: S1-S2 is heard. S1 is of variable intensity. There is no S3 gallop. There is no S4 gallop. There is systolic murmur left sternal border and apex there is no rub. ABDOMEN: Is soft. Nontender there is no hepatosplenic megaly bowel sounds were heard. Extremities femorals are diminished there is no femoral bruits there is no pedal edema there is no DVT or cellulitis. There is no calf tenderness. Leg pulses are diminished. There is no cyanosis or clubbing. [employer] the patient is slightly lethargic. But with no focal deficits. PSYCHIATRIC: The patient does not appear to be agitated. 03/22/18 03/22/18 03/22/18 04:53 04:53 07:00 WBC 10.9 H RBC 3.83 L Hgb 11.7 L Hct 35.1 L MCV 92 MCH 30.4 MCHC 33.2 RDW 15.1 H Plt Count 245 Carbonic Acid 2.12 H HCO3/H2CO3 Ratio 18:1 ABG pH 7.37 ABG pCO2 70.3 H* ABG pO2 68.3 L ABG HCO3 39.5 H ABG Total CO2 41.7 H ABG O2 Saturation 92.4 L ABG Base Excess 11.5 FiO2 4L Sodium 138.9 Potassium 4.4 Chloride 95 L Carbon Dioxide 41 H* Anion Gap 3 L BUN 44 H Creatinine 0.85 Est GFR (Non-Af Amer) > 60 Glucose 132 H Calcium 8.3 L Magnesium 2.4 H Total Bilirubin 0.3 Direct Bilirubin 0.1 Neonat Total Bilirubin Not Reportable Neonat Direct Bilirubin Not Reportable Neonat Indirect Bili Not Reportable AST 15 L ALT 30 Alkaline Phosphatase 61 Total Protein 5.5 L Albumin 3.0 L Chest x-ray shows no infiltrates or pleural effusion. No heart failure. IMPRESSION/RECOMMENDATION: 1 acute on chronic hypercapnic and hypoxic hypoxic respiratory failure. Continue BiPAP. Continue respiratory treatments. This is multifactorial secondary to acute exacerbation of COPD, pneumonia, atrial fibrillation with rapid ventricular response, and congestive heart failure. His ABGs today show chronic hypercapnic and hypoxic respiratory failure 2. Paroxysmal atrial fibrillation. At present in sinus rhythm. Continue Cardizem. 3. Congestive heart failure: This is secondary to atrial fibrillation with rapid ventricular response, and left ventricular diastolic dysfunction. At present no evidence of heart failure. 4. Acute exacerbation of COPD: Continue respiratory treatments, and antibiotics. And BiPAP. And oxygen. 5. Possible pneumonia: Continue antibiotics. 6. Hypertension: Control with blood pressure medication. Can give hydralazine 10 mg IV push as needed. 7. GERD. 8. Depression 9. Prior history of colorectal cancer. 10. Pleural effusion: No recurrence after after thoracentesis. Pleural fluid analysis awaited. His medications reviewed. Management plans of the case discussed with other caregiving providers on the case medical decision making is of high complexity. Discussed with the patient and patient's daughter. Note the patient is a DNR. The daughter is his Surrogate healthcare decision maker. 40 minutes spent on this patient more than 50% time spent in direct patient care. We will follow with you.
[2018-03-23] MEDS: HEPARIN SOD (PORCINE) 5,000 UNIT/ML 1 ML SYRINGE SUBCUT SCH ×3 (05:18→21:08)
[2018-03-23] MEDS: LANSOPRAZOLE 30 MG TAB.RAP.DR PO SCH (05:20)
[2018-03-23] MEDS: METOPROLOL TARTRATE 50 MG TABLET PO SCH ×2 (05:20→17:16)
[2018-03-23] MEDS ORDERED: ACETAMINOPHEN WITH CODEINE #3 TABLET PO PRN (08:28)
[2018-03-23] MEDS: DOCUSATE SODIUM 100 MG CAPSULE PO SCH ×2 (09:05→17:16)
[2018-03-23] MEDS: METHYLPREDNISOLONE INJ 40 MG/1 ML SDV IV SCH ×2 (09:07→21:05)
[2018-03-23] MEDS: TAMSULOSIN HCL 0.4 MG CAP.SR.24H PO SCH (09:07)
[2018-03-23] MEDS: TIOTROPIUM BROMIDE DPI 5 CAP/KIT (18 MCG/CAP) IH SCH (09:07)
[2018-03-23] MEDS: CEFTRIAXONE 1 GM/D5W RTU 1 GM/50 ML RTUPB IV SCH (09:07)
[2018-03-23] MEDS: FLUTICASONE NASAL SPRAY 50 MCG/SPRY 120 SPRAY/16 GM NASL SCH (09:08)
[2018-03-23] MEDS: IPRATROPIUM/ALBUTEROL 0.5-2.5 MG/3 ML AMPUL NEB SCH ×4 (09:14→21:17)
[2018-03-23] MEDS ORDERED: AMLODIPINE BESYLATE 5 MG TABLET PO SCH (10:00)
[2018-03-23] MEDS: DILTIAZEM HCL 120 MG CAP.SR.24H PO SCH (13:47)
--- NOTE | 2018-03-23 16:20 | PDOC PROGRESS REPORT ---
Subjective Progress Note for:: 03/23/18 Subjective:: No acute events overnight but as per family patient has been confused most of the night. Mild the improvement of his hypoxia. Patient still refusing to use BiPAP overnight. Has been saturating 92-100% on 4 L through nasal cannula via 228%. He is alert he denies any fever, chills, nausea, vomiting, diarrhea, chest pain or any urinary symptoms. Reason For Visit: CHF EXACERBATION, PNEUMONIA, COPD EXACERBATION Physical Exam Vital Signs: Temp Pulse Resp BP Pulse Ox 98.6 F 88 18 142/63 H 94 03/23/18 15:59 03/23/18 15:59 03/23/18 15:59 03/23/18 15:59 03/23/18 15:59 Intake & Output 03/22/18 03/23/18 03/24/18 06:59 06:59 06:59 Intake Total 533 159 159 Output Total 1300 2150 450 Balance -767 -1991 -291 Weight 65.8 kg 64.6 kg General appearance: PRESENT: mild distress, well-developed, well-nourished Head exam: PRESENT: atraumatic, normocephalic Respiratory exam: PRESENT: clear to auscultation jacky. ABSENT: rales, rhonchi, wheezes Cardiovascular exam: PRESENT: RRR. ABSENT: diastolic murmur, rubs, systolic murmur GI/Abdominal exam: PRESENT: normal bowel sounds, soft. ABSENT: distended, guarding, mass, organolmegaly, rebound, tenderness Extremities exam: PRESENT: full ROM. ABSENT: calf tenderness, clubbing, pedal edema Neurological exam: PRESENT: alert, awake, oriented to person, oriented to place, oriented to time, oriented to situation, CN II-XII grossly intact. ABSENT: motor sensory deficit Results Laboratory Results: 03/22/18 04:53 03/22/18 04:53 03/20/18 03/20/18 03/20/18 15:25 15:25 15:25 Fluid Glucose Fluid Total Protein 2.2 Fluid LDH 90 Fluid Amylase 10 03/20/18 15:25 Fluid Glucose 154 Fluid Total Protein Fluid LDH Fluid Amylase 03/20/18 15:25 Pleural Fluid - Left Pleural Effusion Gram Stain - Final 03/20/18 15:25 Pleural Fluid - Left Pleural Effusion Body Fluid Culture - Final NO AEROBIC OR ANAEROBIC ORGANISMS RECOVERED 03/17/18 21:25 Blood Blood Culture - Final NO GROWTH IN 5 DAYS 03/17/18 20:30 Blood Blood Culture - Final NO GROWTH IN 5 DAYS 03/17/18 03/17/18 03/17/18 15:40 15:40 15:40 Creatine Kinase < 20 L CK-MB (CK-2) 1.54 Troponin I 0.021 NT-Pro-B Natriuret Pep 30142 H Impressions: Chest Ultrasound 03/19/18 10:00 IMPRESSION: Left pleural effusion was marked on the skin for scheduled thoracentesis. Thoracentesis Ultrasound 03/20/18 00:00 IMPRESSION: SUCCESSFUL THORACENTESIS USING ULTRASOUND GUIDANCE. Chest X-Ray 03/22/18 00:00 IMPRESSION: NO ACUTE FINDINGS. Assessment & Plan - Diagnosis (1) Acute hypoxemic respiratory failure Is this a current diagnosis for this admission?: Yes Plan: Mild improvement. Saturating 92-100% on 3-4 L FiO2 28%. Euvolemic. Refusing to wear BiPAP. Pending transfer to home hospice. Likely due to A. fib coupled with CHF exacerbation and early developing pneumonia. Supplemental oxygen, BiPAP as needed. Duo nebs. IV steroids. Empiric antibiotics. (2) CHF exacerbation Is this a current diagnosis for this admission?: Yes Plan: Improving. Euvolemic. Weight 67.3 kg down from 69.2 on admission. BNP on 03/12/2018 9680. 2D echo normal ejection fraction. Monitor volume status. Cardiac diet. Switch IV Lasix to p.o. once daily. Volume restriction. (3) Pleural effusion due to CHF (congestive heart failure) Is this a current diagnosis for this admission?: Yes (4) Pneumonia Is this a current diagnosis for this admission?: Yes Plan: Cultures no growth. Ceftriaxone day 6. DC tomorrow. (5) Atrial fibrillation with RVR Is this a current diagnosis for this admission?: Yes Plan: Converted to sinus rhythm switch to p.o. Cardizem. Thyroid function tests within normal limits. Not a candidate for anticoagulation due to history of recurrent falls. 2D echo normal ejection fraction. Cardiology on board. (6) COPD with acute exacerbation Is this a current diagnosis for this admission?: Yes Plan: As problem #1. (7) Obstructive sleep apnea Is this a current diagnosis for this admission?: Yes Plan: Refuses to wear CPAP/BiPAP (8) BPH (benign prostatic hyperplasia) Is this a current diagnosis for this admission?: Yes Plan: Restart home meds.
--- NOTE | 2018-03-23 21:47 | Progress Note ---
Provider Note Provider Note: CARDIOLOGY PROGRESS NOTE by Dr. Amparo Hicks on 03/23/2018. SUBJECTIVE: The patient appears to be confused. As per family he is not wearing his BiPAP at night. As per the hospitalist the family has decided to make the patient home hospice. The patient did present slightly drowsy, but seems to be oriented x2. He denies any chest pain or discomfort. There is no PND orthopnea. There is no cough or sputum production. He remains in sinus rhythm. There is no TIA CVA symptoms. PHYSICAL EXAMINATION: The patient appears to be chronically ill, and is of frail build. Appears to be malnourished. But at present in no acute distress. Selected Entries 03/23/18 07:46 Temperature 97.8 F Temperature Oral Source Pulse Rate 77 Respiratory 18 Rate Blood Pressure 165/75 H Blood Pressure 105 Mean BP Location Left Arm BP Position Sitting O2 Sat by Pulse 100 Oximetry Oxygen Flow 3.00 Rate Oxygen Delivery Nasal Cannula Method HEAD: Is atraumatic normocephalic. EYES: Pupils equal round regular react to light accommodation. ENT: Is negative. NECK: Is supple. There is no accessory muscles of respiration use. There is no lymphadenopathy. There is no goiter. Carotids are equal there is no bruits. Trachea central. LUNGS: Show absent breath sounds on the left lower lobe and left middle lobe regions of the lung. The rest of the lungs have diminished air entry prolonged expiration. At the sites of diminished air entry in the left lower lobe and left middle lobe there is dullness on percussion. The rest of the areas have hyperresonance. There is rest of the lungs have scattered rhonchi. There is no wheezing. There is a few fine rales of CHF. HEART: S1-S2 is heard. S1 is of variable intensity. There is no S3 gallop. There is no S4 gallop. There is systolic murmur left sternal border and apex there is no rub. ABDOMEN: Is soft. Nontender there is no hepatosplenic megaly bowel sounds were heard. Extremities femorals are diminished there is no femoral bruits there is no pedal edema there is no DVT or cellulitis. There is no calf tenderness. Leg pulses are diminished. There is no cyanosis or clubbing. FISCAL SPECIALIST the patient is slightly lethargic. But with no focal deficits. PSYCHIATRIC: The patient does not appear to be agitated. IMPRESSION/RECOMMENDATION: 1 acute on chronic hypercapnic and hypoxic hypoxic respiratory failure. Continue BiPAP. Continue respiratory treatments. This is multifactorial secondary to acute exacerbation of COPD, pneumonia, atrial fibrillation with rapid ventricular response, and congestive heart failure. His ABGs today show chronic hypercapnic and hypoxic respiratory failure 2. Paroxysmal atrial fibrillation. At present in sinus rhythm. Continue Cardizem CD p.o 120 mg p.o. daily along with his Lopressor. 3. Congestive heart failure: This is secondary to atrial fibrillation with rap id ventricular response, and left ventricular diastolic dysfunction. At present no evidence of heart failure. 4. Acute exacerbation of COPD: Continue respiratory treatments, and antibiotics. And BiPAP. And oxygen. Note patient refusing BiPAP. 5. Possible pneumonia: Continue antibiotics. This seems to resolve 6. Hypertension: Control with blood pressure medication.. The patient Norvasc and place the patient on Cardizem CD 120 mg p.o. daily along with his Lopressor.. 7. GERD. 8. Depression 9. Prior history of colorectal cancer. 10. Pleural effusion: No recurrence after after thoracentesis. Pleural fluid analysis shows that it is a transudate. His medications reviewed. Management plans of the case discussed with other caregiving providers on the case medical decision making is of high complexity. Discussed with the patient and patient's daughter. Note the patient is a DNR. The daughter is his Surrogate healthcare decision maker. 40 minutes spent on this patient more than 50% time spent in direct patient care. As per the hospitalist the family want to make the patient home hospice care. If that is the case will sign off.
[2018-03-24] MEDS ORDERED: METOPROLOL TARTRATE PF/INJ 5 MG/5 ML SDV IV ONE (00:42)
[2018-03-24] MEDS ORDERED: METOPROLOL TARTRATE PF/INJ 5 MG/5 ML SDV IV PRN (00:43)
[2018-03-24] MEDS ORDERED: METOPROLOL TARTRATE 50 MG TABLET PO ONE (01:00)
[2018-03-24 05:01] LABS: HEMATOCRIT 37.4 % (37.9-51.0); HEMOGLOBIN 12.2 g/dL (13.5-17.0); MEAN CORPUSCULAR HEMOGLOBIN 29.9 pg (27.0-33.4); MEAN CORPUSCULAR HGB CONC 32.6 g/dL (32.0-36.0); MEAN CORPUSCULAR VOLUME 92 fl (80-97); PLATELET COUNT 223 10^3/uL (150-450); RED BLOOD COUNT 4.07 10^6/uL (4.35-5.55); WHITE BLOOD COUNT 15.4 10^3/uL (4.0-10.5)
[2018-03-24 05:29] LABS: ABSOLUTE LYMPHOCYTES# (MANUAL) 0.5 10^3/uL (0.5-4.7); ABSOLUTE MONOCYTES # (MANUAL) 0.5 10^3/uL (0.1-1.4); ABSOLUTE NEUTROPHILS# (MANUAL) 14.5 10^3/uL (1.7-8.2); BASOPHILS % (MANUAL) 0 % (0-2); EOSINOPHILS % (MANUAL) 0 % (0-6); LYMPHOCYTES % (MANUAL) 3 % (13-45); MONOCYTES % (MANUAL) 3 % (3-13); SEGMENTED NEUTROPHILS % (MAN) 94 % (42-78); TOTAL CELLS COUNTED 100
[2018-03-24 05:33] LABS: ANISOCYTOSIS SLIGHT; HELMET CELLS SLIGHT; OVALOCYTES 1+; PLATELET COMMENT ADEQUATE; POIKILOCYTOSIS 1+; TOXIC GRANULATION SLIGHT; TOXIC VACUOLATION PRESENT
[2018-03-24 05:43] LABS: ALANINE AMINOTRANSFERASE 29 U/L (21-72); ALKALINE PHOSPHATASE 67 U/L (38-126); ASPARTATE AMINO TRANSFERASE 14 U/L (17-59); BILIRUBIN,DIRECT 0.1 mg/dL (0.0-0.4); BILIRUBIN,TOTAL 0.4 mg/dL (0.2-1.3); BLOOD UREA NITROGEN 38 mg/dL (7-20); CALCIUM 8.2 mg/dL (8.4-10.2); GLUCOSE 122 mg/dL (75-110); POTASSIUM 4.6 mmol/L (3.6-5.0); TOTAL PROTEIN 5.4 g/dL (6.3-8.2)
[2018-03-24 05:49] LABS: CHLORIDE 97 mmol/L (98-107); SODIUM 138.8 mmol/L (137-145)
[2018-03-24] MEDS: LANSOPRAZOLE 30 MG TAB.RAP.DR PO SCH (05:50)
[2018-03-24] MEDS: HEPARIN SOD (PORCINE) 5,000 UNIT/ML 1 ML SYRINGE SUBCUT SCH ×2 (05:50→14:30)
[2018-03-24 05:54] LABS: CARBON DIOXIDE 40 mmol/L (22-30)
[2018-03-24 05:55] LABS: ANION GAP 2 (5-19)
[2018-03-24] MEDS: IPRATROPIUM/ALBUTEROL 0.5-2.5 MG/3 ML AMPUL NEB SCH ×2 (08:11→11:35)
[2018-03-24] MEDS ORDERED: METOPROLOL TARTRATE 100 MG TABLET PO SCH (10:00)
[2018-03-24] MEDS: TAMSULOSIN HCL 0.4 MG CAP.SR.24H PO SCH (11:11)
[2018-03-24] MEDS: DILTIAZEM HCL 120 MG CAP.SR.24H PO SCH (11:11)
[2018-03-24] MEDS: METHYLPREDNISOLONE INJ 40 MG/1 ML SDV IV SCH (11:12)
[2018-03-24] MEDS: DOCUSATE SODIUM 100 MG CAPSULE PO SCH (11:12)
[2018-03-24] MEDS: FLUTICASONE NASAL SPRAY 50 MCG/SPRY 120 SPRAY/16 GM NASL SCH (11:12)
[2018-03-24] MEDS: CEFTRIAXONE 1 GM/D5W RTU 1 GM/50 ML RTUPB IV SCH (11:13)
[2018-03-24] MEDS: TIOTROPIUM BROMIDE DPI 5 CAP/KIT (18 MCG/CAP) IH SCH (11:14)
--- NOTE | 2018-03-24 11:46 | Progress Note ---
Provider Note Provider Note: The patient continues to be in sinus rhythm. His examination shows no recurrence of pleural effusion clinically. Note that the patient is being made home hospice care. Hence we will sign off. No charges for today.
[2018-03-24 16:05] VITALS: BP 116/57
--- NOTE | 2018-03-26 12:26 | PDOC DISCHARGE SUMMARY ---
General - Admit/Disc Date/PCP Admission Date/Primary Care Provider: 03/17/18 18:24 [facility] Discharge Date: 03/24/18 - Discharge Diagnosis (1) Acute hypoxemic respiratory failure Is this a current diagnosis for this admission?: Yes (2) CHF exacerbation Is this a current diagnosis for this admission?: Yes (3) Pleural effusion due to CHF (congestive heart failure) Is this a current diagnosis for this admission?: Yes (4) Pneumonia Is this a current diagnosis for this admission?: Yes (5) Atrial fibrillation with RVR Is this a current diagnosis for this admission?: Yes (6) COPD with acute exacerbation Is this a current diagnosis for this admission?: Yes (7) Obstructive sleep apnea Is this a current diagnosis for this admission?: Yes (8) BPH (benign prostatic hyperplasia) Is this a current diagnosis for this admission?: Yes - Additional Information Resuscitation Status: Do Not Resuscitate Discharge Diet: Cardiac Discharge Activity: Activity As Tolerated, Balance Activity w/Rest, Weigh Daily Home Medications: Fluticasone Propionate [Flonase Nasal [place] 50 Mcg/[place] 16 gm] 2 spray NASL [place] LUCIE 03/13/18 Hydrochlorothiazide [Hydrodiuril 25 mg Tablet] 25 mg PO DAILY 03/13/18 Meloxicam [Mobic] 7.5 mg PO DAILY 03/13/18 Omeprazole 20 mg PO DAILY 03/13/18 Tamsulosin HCl [Flomax 0.4 mg Cap.sr] 0.4 mg PO DAILY 03/13/18 Levofloxacin [Levaquin] 750 mg PO DAILY #7 tablet 03/14/18 Prednisone [Deltasone 20 mg Tablet] 20 mg PO BID #10 tablet 03/14/18 Acetaminophen with Codeine [Tylenol #3 Tablet] 1 each PO QIDP PRN 03/17/18 Albuterol Sulfate [Proair Hfa Inhalation Aerosol 8.5 gm Mdi] 1 puff IH Q4HP PRN 03/17/18 Cyanocobalamin (Vitamin B-12) [B-12] 1,000 mcg PO BID 03/17/18 Docusate Sodium [Colace] 100 mg PO QHS 03/17/18 Lisinopril [Prinivil 40 mg Tablet] 40 mg PO DAILY 03/17/18 Vit A/Vit C/Vit E/Zinc/Copper [Preservision Areds Softgel] 1 each PO BID 03/17/18 History of Present Illness History of Present Illness: SHANEKA SIERRA is a 82 year old male past medical history of A. fib not on anticoagulation, COPD, RAY, on 3 L of home oxygen, was recently admitted here at [facility] for A. fib and pneumonia but left AMA as he was feeling better. Today he is presenting to ED complaining of shortness of breath. His home health nurse who visited him today noticed that he was hypoxic in the 70s and asked him to come to ED. Patient denies any fever , chest pain, nausea, vomiting, diarrhea, constipation or any urinary symptoms. ED he was found to be hypertensive, tachypneic, tachycardic, saturating low 90s on 4 L. Chest x-ray on admission showed fluid overload or CHF superimposed on COPD with bilateral pulmonary edema. He was started on Cardizem drip and hospitalist consulted for admission. Hospital Course Hospital Course: (1) Acute hypoxemic respiratory failure Hypercarbic, hypoxemic respiratory failure. Multifactorial, likely due to COPD exacerbation complicated with Pneumonia, Afib and Acute CHF. Euvolemic at the time of discharge. Patient is DNR, but he also unfortunately kept refusing to wear BiPAP. Pt AOx3, after he discussed his care with family, they agreed with him to take him home on home hospice. He was provided bipap orders, faxed hospice by discharge planners, incase he agrees to wear bipap at home after discharge. Likely due to A. fib coupled with CHF exacerbation and early developing pneumonia. He was provided with supplemental oxygen, BiPAP(kept refusing to wear), Duo nebs. IV steroids. Empiric antibiotics for his underlying pneumonia. (2) CHF exacerbation Euvolemic at the time of discharge. Weight 67.3 kg down from 69.2 on admission. BNP on 03/12/2018 9680. 2D echo normal ejection fraction. Monitored volume status. Started on cardiac diet, diuretics and volume restriction. (3) Pleural effusion due to CHF (congestive heart failure) On the left side, likely due acute CHF caused to underlying A.fib. Thoracentesis was done by radiology and about 300s fluid was removed. Fluid analysis was negative for any infection, transudative and cytology was negative for any malignancy. Repeat CXR showed moderate resolution of pleural effusion. (4) Pneumonia Cultures no growth. received 6 days of IV Ceftriaxone. No fever or leukocytosis. (5) Atrial fibrillation with RVR Initially placed on Cardizem drip, then to PO Cardizem, and then PO Metoprolol. Converted to sinus rhythm. Thyroid function tests within normal limits. Not a candidate for anticoagulation due to history of recurrent falls. 2D echo normal ejection fraction. Cardiology on board. (6) COPD with acute exacerbation As problem #1. (7) Obstructive sleep apnea Refuses to wear CPAP/BiPAP. Has home CPAP. (8) BPH (benign prostatic hyperplasia) Restart home meds. Physical Exam Vital Signs: Temp Pulse Resp BP Pulse Ox 97.9 F 83 17 116/57 L 100 03/24/18 16:02 03/24/18 16:02 03/24/18 16:02 03/24/18 16:02 03/24/18 16:02 Intake & Output 03/25/18 03/26/18 03/27/18 06:59 06:59 06:59 Intake Total 250 Output Total 375 Balance -125 General appearance: PRESENT: no acute distress Head exam: PRESENT: atraumatic, normocephalic Neck exam: ABSENT: carotid bruit, JVD, lymphadenopathy, thyromegaly Respiratory exam: PRESENT: clear to auscultation jacky. ABSENT: rales, rhonchi, wheezes Cardiovascular exam: PRESENT: RRR. ABSENT: diastolic murmur, rubs, systolic murmur GI/Abdominal exam: PRESENT: normal bowel sounds, soft. ABSENT: distended, guarding, mass, organolmegaly, rebound, tenderness Extremities exam: PRESENT: full ROM. ABSENT: calf tenderness, clubbing, pedal edema Neurological exam: PRESENT: alert, awake, oriented to person, oriented to place, oriented to time, oriented to situation, CN II-XII grossly intact. ABSENT: motor sensory deficit Results Laboratory Results: 03/24/18 04:10 03/24/18 04:10 03/17/18 03/17/18 03/17/18 15:40 15:40 15:40 Creatine Kinase < 20 L CK-MB (CK-2) 1.54 Troponin I 0.021 NT-Pro-B Natriuret Pep 55620 H Impressions: Chest Ultrasound 03/19/18 10:00 IMPRESSION: Left pleural effusion was marked on the skin for scheduled thoracentesis. Thoracentesis Ultrasound 03/20/18 00:00 IMPRESSION: SUCCESSFUL THORACENTESIS USING ULTRASOUND GUIDANCE. Chest X-Ray 03/22/18 00:00 IMPRESSION: NO ACUTE FINDINGS. Qualifiers - * PATIENT BEING DISCHARGED WITH ANY OF THE FOLLOWING DIAGNOSIS: No
== END 2018-03-24 16:26 | disposition hospice, home (50) | DRG 189 ==
LOC: ER 16:14 → EH 18:24 → 3W 21:11
PROVIDERS: ADMIT Internal Medicine; ATTEND Internal Medicine
PROC: 5A09357 Assistance with Respiratory Ventilation, Less than 24 Consecutive Hours, Continuous Positive Airway Pressure (ICD-10-PCS; 2018-03-17)
PROC: 0W9B3ZX Drainage of Left Pleural Cavity, Percutaneous Approach, Diagnostic (ICD-10-PCS; principal; 2018-03-20)
DX: J96.21 Acute and chronic respiratory failure with hypoxia (principal); J96.22 Acute and chronic respiratory failure with hypercapnia; J18.9 Pneumonia, unspecified organism; I50.31 Acute diastolic (congestive) heart failure; J44.1 Chronic obstructive pulmonary disease with (acute) exacerbation; J44.0 Chronic obstructive pulmonary disease with (acute) lower respiratory infection; I48.0 Paroxysmal atrial fibrillation; I11.0 Hypertensive heart disease with heart failure; Z66 Do not resuscitate; G47.33 Obstructive sleep apnea (adult) (pediatric); N40.0 Benign prostatic hyperplasia without lower urinary tract symptoms; K21.9 Gastro-esophageal reflux disease without esophagitis; M19.90 Unspecified osteoarthritis, unspecified site; F32.9 Major depressive disorder, single episode, unspecified; Z79.899 Other long term (current) drug therapy; Z79.01 Long term (current) use of anticoagulants; Z85.038 Personal history of other malignant neoplasm of large intestine; Z87.891 Personal history of nicotine dependence
CPT/HCPCS: 32555; 36415; 36600; 71045; 76604; 80053; 81001; 82150; 82550; 82553; 82803; 82945; 82962; 83615; 83735; 83880; 84155; 84157; 84439; 84443; 84481; 84484; 85025; 85610; 85730; 87015; 87040; 87070; 87075; 87101; 87116; 87205; 87206; 88112; 88305; 89050; 93005; 93010; 93306; 94640; 94660; 99291; J0360; J0696; J1160; J1644; J1940; J1956; J2920; J3490; J7620